=== PATIENT | female | born 1940 | race Hispanic/Latino ===

== ENCOUNTER 2017-07-15 22:13 | Inpatient (IN) | payer SELFPAY ==
[2017-07-16 00:28] LABS: #Lymphocytes 2.9 thou/uL (1.20-3.40); #Monocytes 0.6 thou/uL (0.11-0.59); %Basophils 0.1 % (0.0-1.0); %Eosinophils 0.4 % (0.0-10.0); %Lymphocytes 34.2 % (21.0-51.0); %Monocytes 6.8 % (0.0-10.0); %Neutrophils 58.6 % (42.0-75.0); Mean Corpuscular HGB CONC 35.3 g/dL (32.0-36.0); Mean Corpuscular Hemoglobin 32.2 pg (27.0-31.0); Mean Corpuscular Volume 91.2 fl (81.0-99.0); Mean Platelet Volume 6.3 fL (7.4-10.4); Platelet Count 357 thou/uL (130-400); RBC Distribution Width 11.5 % (11.5-14.5); Red Blood Cell (RBC) Count 3.73 mill/uL (4.20-5.40); White Blood Cell (WBC) Count 8.5 thou/uL (4.8-10.8)
[2017-07-16 00:43] LABS: ALT (SGPT) 16 U/L (8-55); AST (SGOT) 27 U/L (5-34); Albumin 3.5 g/dL (3.4-4.8); Alkaline Phosphatase 109 U/L (40-150); Anion Gap 17 mmol/L (10-20); BUN (Urea Nitrogen) 41 mg/dL (9.8-20.1); Bilirubin, Total 0.3 mg/dL (0.2-1.2); Calc. Creatinine Clearance 0 mL/min (70-130); Calcium 8.6 mg/dL (7.8-10.44); Carbon Dioxide 20 mmol/L (23-31); Chloride 88 mmol/L (98-107); Estimated GFR-MDRD 33; Globulin 4.2 g/dL (2.4-3.5); Glucose 132 mg/dL (83-110); Potassium 4.3 mmol/L (3.5-5.1); Protein, Total 7.7 g/dL (6.0-8.3); Sodium 121 mmol/L (136-145)
[2017-07-16] MEDS ORDERED: Dextrose 5% in Water 1,000 ML IV PRN (02:11)
[2017-07-16] MEDS ORDERED: Dextrose 50% Abboject 50 ML SYRINGE SLOW IVP PRN (02:11)
[2017-07-16] MEDS ORDERED: Bisacodyl 5 MG TAB PO PRN (02:11)
[2017-07-16] MEDS ORDERED: Acetaminophen 325 MG TAB PO PRN (02:11)
--- NOTE | 2017-07-16 02:58 | HP ---
PRIMARY CARE PROVIDER: Dave Mercado. CHIEF COMPLAINT: Cough. HISTORY OF PRESENT ILLNESS: Ms. Mendoza is a pleasant 77-year-old lady who was seen at [facility] on 07/16/2017. She speaks very little Mosotho. Her family member was translated for this encounter. For the last month, Ms. Mendoza has had cough. She reports coughing multiple times a day, with vomit ing following the cough. She also had near syncope yesterday after coughing. She denies any fevers. She denies any chest pain. She reports epigastric discomfort, but is unable to characterize it fur ther. She also reports generalized weakness. She has not been eating or drinking well. REVIEW OF SYSTEMS: The following complete review of systems was negative, unless otherwise mentioned in the HPI or below: Constitutional: Weight loss or gain, ability to conduct usual activities. Skin: Rash, itching. Eyes: Double vision, pain. ENT/Mouth: Nose bleeding, neck stiffness, pain, tenderness. Cardiovascular: Palpitations, dyspnea on exertion, orthopnea. Respiratory: Shortness of breath, wheezing, cough, hemoptysis, fever or night sweats. Gastrointestinal: Poor appetite, abdominal pain, heartburn, nausea, vomiting, constipation, or diarr hea. Genitourinary: Urgency, frequency, dysuria, nocturia. Musculoskeletal: Pain, swelling. Neurologic/Psychiatric: Anxiety, depression. Allergy/Immunologic: Skin rash, bleeding tendency. PAST MEDICAL HISTORY: Significant for diabetes mellitus type 2, hypothyroidism, dyslipidemia, and hy pertension. PAST SURGICAL HISTORY: Significant for right great toe amputation and cholecystectomy. PSYCHIATRIC HISTORY: Significant for anxiety. SOCIAL HISTORY: Patient denies tobacco use, alcohol use, or recreational drug use. CODE STATUS: I could not discuss her code status because of language barrier. This will need to be addressed in the morning. ALLERGIES: No known drug allergies. CURRENT MEDICATIONS: Glipizide 5 mg daily, pravastatin 20 mg daily, aspirin 81 mg daily, Tessalon Pe rles p.r.n., Benicar/hydrochlorothiazide 40/12.5 mg daily, Combigan eyedrops, Azopt eyedrops, and Lev tamiko 35 units daily. PHYSICAL EXAMINATION: GENERAL: Ms. Mendoza is awake and alert, not in acute distress. VITAL SIGNS: Blood pressure is 156/81, pulse is 86. She is breathing at rate of 20 and saturating 9 7% on room air. She is afebrile. EYES: No scleral icterus. No conjunctival pallor. She is blind in her right eye. ENT: Dry mucosal membranes, no oropharyngeal erythema or exudates. NECK: Supple, nontender, normal range of movement. Trachea is midline. RESPIRATORY: Accessory muscles of breathing are not active. Chest wall movements are symmetric bila terally. LUNGS: Clear to auscultation without wheeze, rhonchi, or crepitations. CARDIOVASCULAR: S1 and S2 are heard, regular. LUNGS: Peripheral pulses palpable. No carotid bruit, no pericardial rub. ABDOMEN: Soft, nontender, bowel sounds heard, no hepatomegaly, no splenomegaly. NEUROLOGIC: Cranial nerves II-XII intact. Deep tendon reflexes 2+. MUSCULOSKELETAL: Power is 5/5 in all 4 extremities. SKIN: No rashes or subcutaneous nodules. LYMPHATIC: No cervical lymphadenopathy. PSYCHIATRIC: Normal mood, normal affect, patient is oriented to person and place, not to time. DATABASE: Ms. Mendoza's labs and investigations were reviewed. She had an influenza screen that was positive for influenza A antigen. She has a normal white count, normal hemoglobin, normal platelet count, decreased sodium of 121, normal potassium, elevated creatinine of 1.52, with no known baseline value and an unremarkable liver profile. She had a chest x-ray, which does not show any pulmonary i nfiltrates. ASSESSMENT AND PLAN: Ms. Mendoza is a pleasant 77-year-old lady who was seen at [facility] on 07/16/2017. Her problem list includes: 1. Hyponatremia: Likely multifactorial, including use of thiazide diuretics as well as respiratory infection. The patient's relative also reports that patient drinks a lot of water. We will admit he r to the hospital for further management, including a workup. We will restrict her oral daily fluid intake to less than 2 liters, we will start her on intravenous normal saline and recheck her electrol ytes. 2. Influenza A: She continues to be symptomatic with cough. We will start her on Tamiflu. 3. Renal insufficiency: Duration unclear, likely prerenal given her elevated blood urea nitrogen. We will provide intravenous hydration and recheck creatinine. 4. Diabetes mellitus. Continue home medications, start Accu-Cheks and insulin sliding scale. 5. Hypertension: Monitor vital signs, titrate antihypertensives as needed. Stop thiazide diuretic. LEVEL OF RISK: Moderate. LEVEL OF COMPLEXITY: Moderate.
[2017-07-16 03:42] LABS: Creatinine, Urine 32.22 mg/dL (47-110); Potassium, Urine 12.1 mmol/L
[2017-07-16 04:11] LABS: Anion Gap 14 mmol/L (10-20); BUN (Urea Nitrogen) 38 mg/dL (9.8-20.1); Calc. Creatinine Clearance 0 mL/min (70-130); Calcium 8.2 mg/dL (7.8-10.44); Carbon Dioxide 18 mmol/L (23-31); Cardiac Risk 2.7 (Less than 4.5); Chloride 94 mmol/L (98-107); Cholesterol 96 mg/dl (< 200 Desired); Estimated GFR-MDRD 43; Glucose 107 mg/dL (83-110); HDL Cholesterol 36 mg/dL (>60 Neg Risk); LDL Cholesterol, Calculated 41 mg/dL; Potassium 4.1 mmol/L (3.5-5.1); Sodium 122 mmol/L (136-145); Triglycerides 97 mg/dL (Less than 150)
[2017-07-16 04:34] LABS: Band 7 % (5-11); Hemoglobin 10.7 g/dL (12.0-16.0); Lymphocytes 41 % (21-51); MDiff Complete? YES; Mean Corpuscular Hemoglobin 32.7 pg (27.0-31.0); Mean Corpuscular Volume 90.9 fl (81.0-99.0); Mean Platelet Volume 6.5 fL (7.4-10.4); Monocytes 10 % (0-10); Myelocyte 1 % (0-0); Neutrophil 41 % (42-75); Platelet Count 313 thou/uL (130-400); RBC Distribution Width 11.5 % (11.5-14.5); Red Blood Cell (RBC) Count 3.25 mill/uL (4.20-5.40); White Blood Cell (WBC) Count 6.8 thou/uL (4.8-10.8)
[2017-07-16] MEDS ORDERED: Diabetic Tussin 200 MG/10 ML UDCUP PO PRN (07:40)
[2017-07-16] MEDS ORDERED: Benzonatate 100 MG CAP PO PRN (07:40)
--- NOTE | 2017-07-16 07:42 | PDOC.EVN ---
Event Note - Event Note Event Note: pt seen and evaluated agree with current plan
--- NOTE | 2017-07-16 07:54 | RAD ---
RADIOGRAPH CHEST 2 VIEWS: HISTORY: A 77-year-old female with cough for 1 month. FINDINGS: There is no air space density, pulmonary edema, pleural effusion, pneumothorax, or cardiomegaly. IMPRESSION: No acute cardiopulmonary findings. jn [] POS: [facility]
[2017-07-16] MEDS ORDERED: Promethazine HCl 25 MG SUPP PR PRN (08:08)
[2017-07-16] MEDS ORDERED: hydrALAZINE 20 MG/ML VIAL SLOW IVP PRN (08:08)
[2017-07-16] MEDS ORDERED: Ondansetron HCl/PF 4 MG/2 ML Vial IVP PRN (08:08)
[2017-07-16] MEDS ORDERED: Chloraseptic Spray 180 ml Bottle PO PRN (08:08)
[2017-07-16] MEDS ORDERED: Famotidine 20 MG TAB PO PRN (08:08)
[2017-07-16] MEDS ORDERED: Calcium Carbonate 500 MG ChewTAB PO PRN (08:08)
[2017-07-16] MEDS ORDERED: Temazepam 15 MG CAP PO PRN (08:08)
[2017-07-16] MEDS ORDERED: Metoclopramide HCl 10 MG/2 ML VIAL IVP SCH (08:15)
[2017-07-16] MEDS ORDERED: Enoxaparin Sodium 30 MG/0.3 ML SYRINGE ONE ×2 (10:17→10:18)
[2017-07-16] MEDS ORDERED: Metoclopramide HCl 10 MG/2 ML VIAL ONE (10:19)
[2017-07-16 14:42] VITALS: BMI 28.3
[2017-07-16] MEDS ORDERED: Prevnar 13-Val Conj/PF 0.5 ML SYRINGE IM ONE (15:00)
[2017-07-16] MEDS ORDERED: FLU VACC TS2017-18 (>65YR) 0.5 ML SYRINGE IM ONE (15:00)
[2017-07-16] MEDS: Metoclopramide HCl 10 MG/2 ML VIAL IVP SCH ×3 (15:10→22:02)
[2017-07-16] MEDS: Sodium Chloride 0.9% 1,000 ML IV SCH ×3 (15:10→22:03)
[2017-07-16] MEDS: Oseltamivir 75 MG CAP PO SCH ×2 (15:11→22:03)
[2017-07-16] MEDS: Enoxaparin Sodium 30 MG/0.3 ML SYRINGE SC SCH (15:11)
[2017-07-16] MEDS: HumaLOG 300 UNITS/3 ML VIAL SC PRN ×2 (17:12→22:03)
[2017-07-17] MEDS: Metoclopramide HCl 10 MG/2 ML VIAL IVP SCH ×3 (02:20→13:29)
[2017-07-17 06:04] LABS: Anion Gap 10 mmol/L (10-20); BUN (Urea Nitrogen) 22 mg/dL (9.8-20.1); Calc. Creatinine Clearance 55 mL/min (70-130); Calcium 8.1 mg/dL (7.8-10.44); Carbon Dioxide 21 mmol/L (23-31); Chloride 104 mmol/L (98-107); Estimated GFR-MDRD 53; Glucose 96 mg/dL (83-110); Potassium 3.9 mmol/L (3.5-5.1); Sodium 131 mmol/L (136-145)
--- NOTE | 2017-07-17 06:35 | CON ---
DATE OF CONSULTATION: 07/16/2017 CONSULTING PHYSICIAN: Adamaris Medel M.D. REQUESING PHYSICIAN: Alfredo Yadav M.D. REASON FOR CONSULTATION: Hyponatremia. IMRESSION: 1. Hyponatremia. This is likely multifactorial including but not limited to the following potential etiologies: Hydrochlorothiazide induced hyponatremia compounded by poor p.o. osmolar intake. PLAN: 1. Probably need to discontinue hydrochlorothiazide in this patient's medication regimen. 2. Normal saline rehydration. 4. Further management will be dependent on the clinical course. HISTORY: This is a 77-year-old female patient who presented here with generalized weakness and cough which started last month. On further evaluation, the patient was noted to have hyponatremia . As a result, for management of this case. PAST MEDICAL HISTORY: Significant for type 2 diabetes, hypothyroidism, dyslipidemia, hypertension. MEDICATIONS: Reviewed and as documented on [employer]. SOCIAL HISTORY: No alcohol, tobacco, or recreational drug use. ALLERGY: No known drug allergy. FAMILY HISTORY: Not significantly related to the presenting illness. PHYSICAL EXAMINATION: GENERAL: The patient was found not to be in any distress. HEENT: Unremarkable. Moist oral mucosa. NECK: Supple. No conjunctival injection or icterus. CARDIOVASCULAR SYSTEM: First and second heart sounds were heard. RESPIRATORY SYSTEM: Clear to auscultation. DIGESTIVE SYSTEM: Revealed a benign abdomen. EXTREMITIES: No peripheral edema. SKIN: No new gross rash. LYMPHATICS: No peripheral lymphadenopathy. SUMMARY: This is a 77-year-old female patient who presented here with weakness, cough, noted to have severe hyponatremia. Thank you for this consultation.
[2017-07-17 06:48] LABS: Band 1 % (5-11); Lymphocytes 54 % (21-51); MDiff Complete? YES; Mean Corpuscular HGB CONC 34.4 g/dL (32.0-36.0); Mean Corpuscular Hemoglobin 31.9 pg (27.0-31.0); Mean Corpuscular Volume 92.5 fl (81.0-99.0); Mean Platelet Volume 6.6 fL (7.4-10.4); Monocytes 5 % (0-10); Neutrophil 40 % (42-75); Platelet Count 281 thou/uL (130-400); RBC Distribution Width 11.6 % (11.5-14.5); Red Blood Cell (RBC) Count 2.83 mill/uL (4.20-5.40)
[2017-07-17] MEDS: Enoxaparin Sodium 30 MG/0.3 ML SYRINGE SC SCH (08:53)
[2017-07-17] MEDS: Sodium Chloride 0.9% 1,000 ML IV SCH ×2 (08:53→21:43)
--- NOTE | 2017-07-17 11:33 | PDOC.PN ---
- Subjective Encounter Start Date: 07/17/17 Encounter Start Time: 11:31 Patient seen and examined, states she feels weak, states that she had another bout of cough and before starting breakfast vomitted once, no blood. Patient states she feels very anxious and is dizzy as well. Patient's family at bedside , all questions answered. - Objective Vital Signs & Weight: Vital Signs (12 hours) Temp Pulse Resp BP Pulse Ox 07/17/17 08:26 98.0 F 72 20 160/67 H 96 07/17/17 08:00 98.0 F 72 20 96 07/17/17 04:00 98.4 F 63 20 115/66 96 07/17/17 00:21 99.0 F 65 20 150/76 H 98 Weight Admit Weight 165 lb 6.4 oz Weight 165 lb 6.4 oz I&O: 07/16/17 07/17/17 07/18/17 06:59 06:59 06:59 Intake Total 1631 180 Balance 1631 180 Result Diagrams: 07/17/17 05:16 07/17/17 05:16 Additional Labs: Accuchecks 07/17/17 07/16/17 07/16/17 03:47 20:02 16:50 POC Glucose 101 152 H 154 H 07/16/17 11:46 POC Glucose 159 H Phys Exam - Physical Examination Constitutional: NAD HEENT: PERRLA, moist MMs Neck: no nodes, no JVD Respiratory: no wheezing, no rales Cardiovascular: RRR, no significant murmur Gastrointestinal: soft, non-tender Musculoskeletal: no edema, pulses present Neurological: non-focal, normal sensation Dx/Plan (1) Hyponatremia Code(s): E87.1 - HYPO-OSMOLALITY AND HYPONATREMIA Status: Acute (2) Renal dysfunction Status: Acute (3) HTN (hypertension) Code(s): I10 - ESSENTIAL (PRIMARY) HYPERTENSION Status: Acute (4) Cough Code(s): R05 - COUGH Status: Acute (5) Viral syndrome Status: Acute (6) DM II (diabetes mellitus, type II), controlled Code(s): E11.9 - TYPE 2 DIABETES MELLITUS WITHOUT COMPLICATIONS Status: Acute - Plan * Continue with current plan of care for now with the following additions * meclezine for dizziness, will also obtain CT scan of head * will follow up with results in AM * patient was not aware that she has PRN zofran available, family and patient requested to inform nurse when she has symptoms of nausea in order to receive her zofran * case and plan d/w patient and family at length, they understand and agree with this plan
[2017-07-17] MEDS: Oseltamivir 75 MG CAP PO SCH ×2 (13:02→21:44)
[2017-07-17] MEDS: HumaLOG 300 UNITS/3 ML VIAL SC PRN ×2 (13:02→16:46)
--- NOTE | 2017-07-17 15:09 | CT ---
CT HEAD WITHOUT CONTRAST: TECHNIQUE: Multiple axial tomograms were obtained through the head without IV enhancement. HISTORY: Headache and dizziness. COMPARISON: Compared to a prior CT scan from 2007. Mild cortical volume loss. Ventricles have normal size and position. No evidence of acute infarct, mass, or hemorrhage. Mild ischemic white matter change. There is opacification of ethmoid air cells on the right and diffuse opacification of the right maxil rachid sinus. IMPRESSION: 1. No acute intracranial process. 2. Paranasal sinus mucosal disease primarily involving the right ethmoid and maxillary sinuses. POS: [facility]
--- NOTE | 2017-07-17 20:51 | PRG ---
DATE OF SERVICE: 07/17/2017 SUBJECTIVE: The patient was seen and examined, seems to be doing much better. Noted with the follow ing vital signs. PHYSICAL EXAMINATION: VITAL SIGNS: Afebrile with temperature 98.1, pulse 72, respiratory rate 20, O2 sat 97%, blood pressu re 167/79. HEENT: Unremarkable with moist oral mucosa. No conjunctival injection or icterus. NECK: Supple. CARDIOVASCULAR: First and second heart sounds were heard. RESPIRATORY: Clear to auscultation. DIGESTIVE: Reveals a benign abdomen with positive bowel sounds. EXTREMITIES: No peripheral edema. SKIN: No new gross rash. LYMPHATICS: No peripheral lymphadenopathy. IMPRESSION: Hyponatremia in the context of hydrochlorothiazide usage. PLAN: 1. Permanently discontinue hydrochlorothiazide. 2. Continue renal supportive measures. 3. Further management will be dependent on the clinical course. IV fluid can be discontinued now.
[2017-07-18] MEDS: HumaLOG 300 UNITS/3 ML VIAL SC PRN ×2 (05:50→12:35)
[2017-07-18] MEDS: Enoxaparin Sodium 30 MG/0.3 ML SYRINGE SC SCH (09:26)
[2017-07-18] MEDS: Oseltamivir 75 MG CAP PO SCH (11:40)
--- NOTE | 2017-07-18 12:47 | DIS ---
DATE OF ADMISSION: 07/16/2017 DATE OF DISCHARGE: 07/18/2017 ADMITTING DIAGNOSES: 1. Cough. 2. Diabetes mellitus, type 2. 3. Hypothyroidism. 4. Dyslipidemia. 5. Hypertension. 6. Hyponatremia. 7. Influenza A positivity. DISCHARGE DIAGNOSES: 1. Cough has resolved. 2. Hyponatremia secondary to secondary to hydrochlorothiazide, resolved. 3. Acute kidney injury, resolved. 4. Influenza A, stable. 5. Hypertension, stable. 6. Hypothyroidism, stable. 7. Dyslipidemia, stable. HOSPITAL COURSE: This is a 77-year-old pleasant female admitted to the hospital due to coughing, sev ere shortness of breath as well as severe symptomatic hyponatremia of 121. Patient was admitted, [facility] team followed very closely, also by Nephrology. The patient had her hydrochlorothiazi de discontinued and serum sodium levels normalized beautifully. The patient also had a CT scan of he r head done and she was complaining of headaches and dizziness, which was negative, normal with no is sues. The patient clinically at point of time of discharge was stable, stated that she has felt a li ttle bit weak and still had cough, but otherwise had significant improvement. The patient also was s tating that she was ready to go home. Patient denied any nausea, vomiting, diarrhea, constipation, c hest pain, fevers, chills, shortness of breath at the point of time of discharge. The patient's fami ly was at bedside. Patient given prescription for tessalon perles, Levaquin 7 days, Tamiflu 7 days a s well as discontinuation of her hydrochlorothiazide and a prescription for lisinopril 10 mg daily. DISPOSITION: Home. MEDICATIONS: See SEP. FOLLOWUP: With PCP in 2 weeks. DIET: Low fat, low calorie, high fiber diet. ACTIVITY: As tolerated. CONDITION: Stable. Case and plan discussed with patient and family at length. They understand and agree with this plan.
[2017-07-18 13:30] VITALS: BP 162/82; TEMP 98.3
== END 2017-07-18 15:24 | disposition home or self-care (01) | DRG 641 ==
LOC: ERS 22:13 → ERHOLD 07-16 01:10 → T4-B 07-16 14:39
PROVIDERS: ADMIT Internal Medicine; ATTEND Internal Medicine
DX: E87.1 Hypo-osmolality and hyponatremia (principal); N17.9 Acute kidney failure, unspecified; T50.2X5A Adverse effect of carbonic-anhydrase inhibitors, benzothiadiazides and other diuretics, initial encounter; J10.1 Influenza due to other identified influenza virus with other respiratory manifestations; I10 Essential (primary) hypertension; E03.9 Hypothyroidism, unspecified; E78.5 Hyperlipidemia, unspecified; E11.9 Type 2 diabetes mellitus without complications; Z89.411 Acquired absence of right great toe; Z90.49 Acquired absence of other specified parts of digestive tract; F41.9 Anxiety disorder, unspecified; R05 Cough; B34.9 Viral infection, unspecified; Z79.4 Long term (current) use of insulin
CPT/HCPCS: 36415; 36416; 70450; 71046; 80048; 80053; 80061; 82436; 82570; 83930; 83935; 84133; 84300; 84443; 85025; 96361; 96372; 96374; J1650; J2765

== ENCOUNTER 2019-08-03 17:15 | Inpatient (IN) | payer SELFPAY ==
[2019-08-03] MEDS ORDERED: Acetaminophen 500 MG TAB ONE (17:33)
[2019-08-03 17:58] LABS: Bacteria/HPF 4+ HPF (None Seen); Bilirubin Negative (Negative); Blood, Urine Trace (Negative); Clarity Turbid (Clear); Glucose, Urine (Dipstick) Normal (Negative); Leukocyte 500 Leu/uL (Negative); Nitrite Negative (Negative); Protein, Urine (Dipstick) 100 mg/dL (Neg-Trace); Urobilinogen Normal mg/dL (Less than 2); WBC/HPF Greater than 50 HPF (0-3)
[2019-08-03 18:13] LABS: #Eosinphils 0.2 thou/uL (0.0-0.7); #Lymphocytes 0.6 thou/uL (1.20-3.40); #Monocytes 0.2 thou/uL (0.11-0.59); #Neutrophils 9.9 thou/uL (1.40-6.50); %Basophils 0.1 % (0.0-1.0); %Eosinophils 2.1 % (0.0-10.0); %Lymphocytes 5.2 % (21.0-51.0); %Monocytes 1.8 % (0.0-10.0); %Neutrophils 90.8 % (42.0-75.0); Hemoglobin 10.3 g/dL (12.0-16.0); Mean Corpuscular HGB CONC 33.2 g/dL (32.0-36.0); Mean Corpuscular Hemoglobin 30.3 pg (27.0-31.0); Mean Corpuscular Volume 91.2 fL (78.0-98.0); Mean Platelet Volume 8.1 fL (7.4-10.4); Platelet Count 197 thou/uL (130-400); RBC Distribution Width 11.4 % (11.5-14.5); White Blood Cell (WBC) Count 10.9 thou/uL (4.8-10.8)
[2019-08-03 18:42] LABS: ALT (SGPT) 38 U/L (8-55); AST (SGOT) 49 U/L (5-34); Albumin 3.3 g/dL (3.4-4.8); Alkaline Phosphatase 162 U/L (40-110); Anion Gap 11 mmol/L (10-20); BUN (Urea Nitrogen) 67 mg/dL (9.8-20.1); Bilirubin, Total 0.2 mg/dL (0.2-1.2); Calc. Creatinine Clearance 0 mL/min (70-130); Calcium 8.6 mg/dL (7.8-10.44); Carbon Dioxide 23 mmol/L (23-31); Chloride 104 mmol/L (98-107); Estimated GFR-MDRD 27; Globulin 3.8 g/dL (2.4-3.5); Glucose 217 mg/dL (83-110); Lipase 26 U/L (8-78); Potassium 4.4 mmol/L (3.5-5.1); Protein, Total 7.1 g/dL (6.0-8.3); Sodium 134 mmol/L (136-145)
--- NOTE | 2019-08-03 20:12 | CT ---
CT OF THE ABDOMEN AND PELVIS WITHOUT IV CONTRAST: 08/03/19 INDICATION: History of nausea, vomiting, generalized abdominal pain. COMPARISON: None. FINDINGS: The lung bases are clear. There is a moderate sized hiatal hernia. The unopacified liver is unremarkable appearing. The gallbladder is surgically absent. Pancreas and right adrenal gland are normal appearing. There is a 1.3 cm left adrenal adenoma. The spleen and unopacified kidneys are unremarkable appearing. No hydronephrosis is evident. No enlar ged lymph nodes or free fluid is evident. There are moderate calcifications involving the abdominal and pelvic vasculature. There is a retroaortic left renal vein. There are a few scattered diverticula involving the colon. The colon is slightly decompressed. There is a normal appendix in the right lower quadrant. Small bowel is normal in caliber. There is a hypodense mass involving the region of the right adnexa measuring 5.9 x 5.5 cm. Left adnex a is unremarkable appearing. The bladder, rectum, and perirectal soft tissues are unremarkable appearing. There is diffuse osteopenia. There is scattered degenerative and osteoarthritic change. No definite a cute osseous abnormality is evident. IMPRESSION: 1. Hypodense mass involving the right adnexa incompletely characterized. Follow-up pelvic ultras ound is recommended for additional characterization. 2. Moderate sized hiatal hernia. 3. Left adrenal adenoma. 4. Cholecystectomy. 5. Chronic diverticulosis. POS: [facility]
[2019-08-03] MEDS ORDERED: cefTRIAXone\\ROCEPHIN 1 GM VIAL ONE (21:38)
[2019-08-03] MEDS ORDERED: Ondansetron ODT 4 MG TAB ONE (21:38)
[2019-08-03] MEDS ORDERED: Lidocaine 1% PF 5 ML VIAL ONE (21:38)
[2019-08-03] MEDS ORDERED: Aspirin Chewable 81 MG TAB ONE (23:15)
[2019-08-03 23:22] LABS: CKMB 1.2 ng/mL (0-6.6)
[2019-08-04] MEDS ORDERED: Ondansetron PF 4 MG/2 ML Vial IVP PRN ×2 (01:07→08:28)
[2019-08-04] MEDS ORDERED: Sodium Chloride 0.9% 1,000 ML IV SCH (01:07)
[2019-08-04] MEDS ORDERED: Ondansetron ODT 4 MG TAB SL PRN (01:07)
[2019-08-04 01:38] VITALS: BMI 29.5
[2019-08-04 02:30] LABS: Troponin I 0.039 ng/mL (< 0.028)
[2019-08-04 05:18] LABS: Troponin I 0.041 ng/mL (< 0.028)
[2019-08-04] MEDS ORDERED: Amlodipine 5 MG TAB PO SCH (06:30)
[2019-08-04] MEDS ORDERED: HYDROcodone/Acetaminophen 5/325 mg Tablet PO PRN ×2 (08:28)
[2019-08-04] MEDS ORDERED: Acetaminophen 325 MG TAB PO PRN (08:28)
[2019-08-04] MEDS ORDERED: Ondansetron ODT 4 MG TAB PO PRN (08:28)
[2019-08-04] MEDS ORDERED: Dextrose 5% in Water 1,000 ML IV PRN (08:34)
[2019-08-04] MEDS ORDERED: Dextrose 50% Abboject 50 ML SYRINGE SLOW IVP PRN (08:34)
--- NOTE | 2019-08-04 08:49 | PDOC.HHP ---
Hospitalist HPI - History of Present Illness nausea and vomiting History of Present Illness: Case of an 79y/o female with pmhx of diabetes htn and hypercolesterolemia who comes to hospital due to n/v. patient refers she was on her usual state of health until 2days ago when she started with general malaise. symptoms progressed and patient began w suprapubic pain nausea vomiting fever and chills for which she decided to come to hospital. patient refers her urine is foul smelling and has changes in color, denies any dysuria, pt refers only 1 episode of vomiting and 1 episode of diarrhea, non bloody Hospitalist ROS - Review of Systems Constitutional: reports: fever, chills, weakness, malaise Eyes: denies: pain, vision change, conjunctivae inflammation, eyelid inflammation, redness, other ENT: denies: ear pain, ear discharge, nose pain, nose discharge, nose congestion , mouth pain, mouth swelling, throat pain, throat swelling, other Respiratory: denies: cough, dry, shortness of breath, hemoptysis, SOB with excertion, pleuritic pain, sputum, wheezing, other Cardiovascular: denies: chest pain, palpitations, orthopnea, paroxysmal noc. dyspnea, edema, light headedness, other Gastrointestinal: reports: nausea, vomiting, diarrhea Genitourinary: reports: frequency, other (as above). denies: dysuria Musculoskeletal: denies: neck pain, shoulder pain, arm pain, back pain, hand pain, leg pain, foot pain, other Skin: denies: rash, lesions, arian, bruising, other Neurological: denies: weakness, numbness, incoordination, change in speech, confusion, seizures, other - Medication Medications: Active Medications Generic Name Dose Route Start Last Admin Trade Name Freq PRN Reason Stop Dose Admin Sodium Chloride 1,000 mls @ 100 mls/hr 08/04/19 01:07 08/04/19 02:13 Normal Saline 0.9% IV 08/04/19 10:50 1,000 mls .Q10H CLARISA Administration Ondansetron HCl 4 mg 08/04/19 01:07 08/04/19 04:48 Zofran Odt SL 08/04/19 10:50 4 mg Q6H PRN Administration Nausea/Vomiting Hospitalist History - Past Medical History Cardiac: reports: HTN Pulmonary: reports: high cholesterol Endocrine: reports: Diabetes - Family History Family History: reports: diabetes mellitus, hypertension - Social History Smoking Status: Never smoker Alcohol: reports: None. denies: Rare, Occassional, Heavy Drugs: reports: none. denies: cocaine, heroine, marijuana, methamphetamine, Other Living Situation: With Family Activity level: independent ambulation - Exam General Appearance: NAD Eye: PERRL, anicteric sclera. negative: scleral icterus ENT: normocephalic atraumatic, no oropharyngeal lesions, dry oral mucosa Neck: supple, symmetric, no JVD, no thyromegaly, no lymphadenopathy, no carotid bruit Heart: RRR, no murmur, no gallops, no rubs Respiratory: no wheezes, no rales, no ronchi, normal chest expansion, no tachypnea Gastrointestinal: soft, non-tender, non-distended, normal bowel sounds, no palpable masses Extremities: no cyanosis, no clubbing, no edema Skin: no lesions, no rashes Neurological: cranial nerve grossly intact, normal sensation to touch, no weakness, no focal deficits Musculoskeletal: normal tone Psychiatric: normal affect, normal behavior, A&O x 3, oriented to person, oriented to place, oriented to time Hospitalist Results - Labs Result Diagrams: 08/03/19 18:04 08/03/19 18:04 Lab results: WBC 10.9 thou/uL (4.8-10.8) H 08/03/19 18:04 Hgb 10.3 g/dL (12.0-16.0) L 08/03/19 18:04 Hct 31.0 % (36.0-47.0) L 08/03/19 18:04 MCV 91.2 fL (78.0-98.0) 08/03/19 18:04 Plt Count 197 thou/uL (130-400) 08/03/19 18:04 Neutrophils % 90.8 % (42.0-75.0) H 08/03/19 18:04 Sodium 134 mmol/L (136-145) L 08/03/19 18:04 Potassium 4.4 mmol/L (3.5-5.1) 08/03/19 18:04 Chloride 104 mmol/L (98-107) 08/03/19 18:04 Carbon Dioxide 23 mmol/L (23-31) 08/03/19 18:04 BUN 67 mg/dL (9.8-20.1) H 08/03/19 18:04 Creatinine 1.78 mg/dL (0.6-1.1) H 08/03/19 18:04 Glucose 217 mg/dL (83-110) H 08/03/19 18:04 Calcium 8.6 mg/dL (7.8-10.44) 08/03/19 18:04 Total Bilirubin 0.2 mg/dL (0.2-1.2) 08/03/19 18:04 AST 49 U/L (5-34) H 08/03/19 18:04 ALT 38 U/L (8-55) 08/03/19 18:04 Alkaline Phosphatase 162 U/L (40-110) H 08/03/19 18:04 CK-MB (CK-2) 1.2 ng/mL (0-6.6) 08/03/19 22:30 Troponin I 0.041 ng/mL (< 0.028) H 08/04/19 04:37 Serum Total Protein 7.1 g/dL (6.0-8.3) 08/03/19 18:04 Albumin 3.3 g/dL (3.4-4.8) L 08/03/19 18:04 Lipase 26 U/L (8-78) 08/03/19 18:04 Urine Ketones Negative mg/dL (Negative) 08/03/19 17:38 Urine Blood Trace (Negative) A 08/03/19 17:38 Urine Nitrite Negative (Negative) 08/03/19 17:38 Ur Leukocyte Esterase 500 Ian/uL (Negative) A 08/03/19 17:38 Urine RBC 4-6 HPF (0-3) A 08/03/19 17:38 Urine WBC Greater than 50 HPF (0-3) A 08/03/19 17:38 Ur Squamous Epith Cells 11-20 HPF (0-3) A 08/03/19 17:38 Urine Bacteria 4+ HPF (None Seen) A 08/03/19 17:38 - Radiology Interpretation CT scan - abdomen Status: image reviewed by me, report reviewed by me (There is a moderate sized hiatal hernia. The unopacified liver is unremarkable appearing. The gallbladder is surgically absent. Pancreas and right adrenal gland are normal appearing. There is a 1.3 cm left adrenal adenoma. The spleen and unopacified kidneys are unremarkable appearing. No hydronephrosis is evident. No enlarged lymph nodes or free fluid is evident. There are moderate calcifications involving the abdominal and pelvic vasculature. There is a retroaortic left renal vein. There are a few scattered diverticula involving the colon. The colon is slightly decompressed. There is a normal appendix in the right lower quadrant. Small bowel is normal in caliber. There is a hypodense mass involving the region of the right adnexa measuring 5.9 x 5.5 cm. Left adnexa is unremarkable appearing. The bladder, rectum, and perirectal soft tissues are unremarkable appearing. There is diffuse osteopenia. There is scattered degenerative and osteoarthritic change. No definite acute osseous abnormality is evident. IMPRESSION: 1. Hypodense mass involving the right adnexa incompletely characterized. Follow-up pelvic ultrasound is recommended for additional characterization. 2. Moderate sized hiatal hernia. 3. Left adrenal adenoma. 4. Cholecystectomy. 5. Chronic diverticulosis.) Hospitalist H&P A/P - Problem (1) UTI (urinary tract infection) Status: Acute (2) Nausea & vomiting Code(s): R11.2 - NAUSEA WITH VOMITING, UNSPECIFIED Status: Acute (3) Diabetes Code(s): E11.9 - TYPE 2 DIABETES MELLITUS WITHOUT COMPLICATIONS Status: Acute (4) LISSET (acute kidney injury) Code(s): N17.9 - ACUTE KIDNEY FAILURE, UNSPECIFIED Status: Acute (5) HTN (hypertension) Code(s): I10 - ESSENTIAL (PRIMARY) HYPERTENSION Status: Acute - Plan Plan: Case of an 79y/o fem with pmhx of htn dm and hypercholesterolemia who comes with n/v. at er pt found with u/a consistent w uti, febrile and pulse in the upper 90s. pt was started on rocephin and ivfs -admit as obs -rocephin 1g daily -f/u urine/blood cultures -ivsf to treat lisset, cr at 1.7 could be chronic but pt w/o knowlege of ckd and no previous values on labs -symptomatic tx for n/v -insulin scale for dm control + basal insulin -continue home meds for chronic conditions -gi/dvt prophylaxis
[2019-08-04] MEDS ORDERED: HYDROCHLOROTHIAZIDE PO SCH (09:00)
[2019-08-04] MEDS ORDERED: OLMESARTAN PO SCH (09:00)
[2019-08-04] MEDS ORDERED: [UNRECOGNIZED DRUG - OTHER] PO SCH (09:00)
[2019-08-04] MEDS ORDERED: Aspirin 325 MG TAB PO SCH (09:00)
[2019-08-04] MEDS ORDERED: Losartan 25 MG TAB PO SCH (09:45)
[2019-08-04] MEDS ORDERED: Hydrochlorothiazide 25 MG TAB PO SCH (09:45)
[2019-08-04] MEDS: Amlodipine 5 MG TAB PO SCH (09:52)
[2019-08-04] MEDS: Aspirin Chewable 81 MG TAB PO SCH (09:52)
[2019-08-04] MEDS: Famotidine 20 MG TAB PO SCH ×2 (09:52→20:40)
[2019-08-04] MEDS: Sodium Chloride 0.9% 1,000 ML IV SCH (09:53)
[2019-08-04] MEDS: Enoxaparin Sodium 30 MG/0.3 ML SYRINGE SC SCH (09:54)
[2019-08-04] MEDS: Insulin Regular 300 UNITS/3 ML VIAL SC PRN (12:03)
[2019-08-04] MEDS: Simvastatin 5 MG TAB PO SCH (20:40)
[2019-08-04] MEDS: cefTRIAXone\\ROCEPHIN 1 GM in Sodium Chloride 0.9% 100 ML IVPB SCH (20:41)
[2019-08-04] MEDS ORDERED: Pravastatin Sodium 20 MG TAB PO SCH (21:00)
[2019-08-04] MEDS ORDERED: Insulin Glargine 40 UNITS in Pre-Filled Syringe 1 EACH SC SCH (21:00)
[2019-08-04] MEDS ORDERED: Insulin Regular 300 UNITS/3 ML VIAL SC PRN (21:55)
[2019-08-05] MEDS: Sodium Chloride 0.9% 1,000 ML IV SCH ×2 (03:29→23:26)
[2019-08-05 05:15] LABS: #Eosinphils 0.5 thou/uL (0.0-0.7); #Lymphocytes 2.2 thou/uL (1.20-3.40); #Monocytes 0.8 thou/uL (0.11-0.59); #Neutrophils 2.5 thou/uL (1.40-6.50); %Basophils 0.3 % (0.0-1.0); %Lymphocytes 36.4 % (21.0-51.0); %Monocytes 13.2 % (0.0-10.0); %Neutrophils 42.1 % (42.0-75.0); Hemoglobin 10.1 g/dL (12.0-16.0); Mean Corpuscular HGB CONC 33.6 g/dL (32.0-36.0); Mean Corpuscular Hemoglobin 30.9 pg (27.0-31.0); Mean Platelet Volume 8.5 fL (7.4-10.4); Platelet Count 196 thou/uL (130-400); RBC Distribution Width 11.5 % (11.5-14.5); Red Blood Cell (RBC) Count 3.26 mill/uL (4.20-5.40); White Blood Cell (WBC) Count 5.9 thou/uL (4.8-10.8)
[2019-08-05 05:39] LABS: Anion Gap 11 mmol/L (10-20); BUN (Urea Nitrogen) 48 mg/dL (9.8-20.1); Calc. Creatinine Clearance 36 mL/min (70-130); Carbon Dioxide 21 mmol/L (23-31); Chloride 108 mmol/L (98-107); Estimated GFR-MDRD 34; Glucose 106 mg/dL (83-110); Potassium 4.1 mmol/L (3.5-5.1); Sodium 136 mmol/L (136-145)
[2019-08-05] MEDS: Aspirin Chewable 81 MG TAB PO SCH (08:20)
[2019-08-05] MEDS: Enoxaparin Sodium 30 MG/0.3 ML SYRINGE SC SCH (08:20)
[2019-08-05] MEDS: Amlodipine 5 MG TAB PO SCH (08:20)
[2019-08-05] MEDS: Losartan 25 MG TAB PO SCH (08:21)
[2019-08-05] MEDS: Hydrochlorothiazide 25 MG TAB PO SCH (08:21)
[2019-08-05] MEDS ORDERED: Amlodipine 5 MG TAB PO SCH (09:00)
[2019-08-05] MEDS ORDERED: Insulin Glargine 10 UNITS in Pre-Filled Syringe 1 EACH SC SCH (10:00)
--- NOTE | 2019-08-05 10:15 | PRG ---
DATE OF SERVICE: 08/05/2019 SUBJECTIVE: The patient is seen and examined at the bedside. She feels significantly better. She does not have much of complaints anymore except for some weakness. She is able to tolerate food. She just ate breakfast without any nausea or vomiting. OBJECTIVE: VITAL SIGNS: Blood pressure is 148/65, pulse 69, temperature is 98.4, maximal temperature is 98.6, pulse oximetry is 93% on room air. HEAD: Atraumatic and normocephalic. Eyes are PERRLA. Sclerae are nonicteric. Oral mucosa is moist. NECK: Supple. LUNGS: Clear. HEART: S1 and S2 normal. No S3. No S4. No any murmur. ABDOMEN: Soft, nontender. Bowel sounds are present. No organomegaly. EXTREMITIES: No clubbing, cyanosis, or edema. NEUROLOGICAL: She follows my commands. She moves all 4 extremities. LABORATORY DATA: Labs show white count of 5.9, hemoglobin 10.1, hematocrit 30.0, platelet count 196. Sodium of 136, potassium 4.1, chloride 108, CO2 of 21, BUN 48, creatinine 1.48. The rest of chemistry is within normal limits. Accu-Cheks ranging from 94 to 331. Microbiology; urine culture presumptive Escherichia coli, sensitivity to follow. IMPRESSION: 1. Urinary tract infection, most likely Escherichia coli. She is on Rocephin. She does not have any temperature anymore. Her white count is back down to the normal range. We are waiting for the sensitivity to come back. 2. Nausea and vomiting, resolved. 3. Diabetes mellitus, uncontrolled. We are going to change her long-acting insulin from 40 units at bedtime to 10 units now and 30 units at night since she is high at the end of the day and her glycemia is down to normal range in the morning. 4. Acute kidney injury, improved with IV fluids. We will continue gentle hydration. Her creatinine is improved. PLAN: Plan to keep her additional 24 hours. Continue IV fluids slow rate at 50 mL/h. Continue Rocephin. We should have sensitivity on her urine cultures and we will recheck her BMP in the morning and she should be able to go back home when her glycemia is improved and we have more information about her urine culture and her general status improved. Job ID: [id number]
[2019-08-05] MEDS: Insulin Regular 300 UNITS/3 ML VIAL SC PRN (18:47)
[2019-08-05] MEDS: cloNIDine 0.1 MG TAB PO PRN ×2 (19:16→23:26)
[2019-08-05] MEDS ORDERED: Insulin Glargine 30 UNITS in Pre-Filled Syringe 1 EACH SC SCH (21:00)
[2019-08-05] MEDS: Simvastatin 5 MG TAB PO SCH (21:15)
[2019-08-05] MEDS: cefTRIAXone\\ROCEPHIN 1 GM in Sodium Chloride 0.9% 100 ML IVPB SCH (21:15)
[2019-08-05] MEDS: Famotidine 20 MG TAB PO SCH (21:15)
[2019-08-06] MEDS: cloNIDine 0.1 MG TAB PO PRN (04:44)
[2019-08-06 04:58] LABS: Anion Gap 11 mmol/L (10-20); BUN (Urea Nitrogen) 39 mg/dL (9.8-20.1); Calc. Creatinine Clearance 43 mL/min (70-130); Calcium 8.2 mg/dL (7.8-10.44); Carbon Dioxide 22 mmol/L (23-31); Chloride 109 mmol/L (98-107); Estimated GFR-MDRD 42; Sodium 138 mmol/L (136-145)
[2019-08-06 05:00] LABS: Glucose 58 mg/dL (83-110)
[2019-08-06] MEDS: Losartan 25 MG TAB PO SCH (08:42)
[2019-08-06] MEDS: Hydrochlorothiazide 25 MG TAB PO SCH (08:42)
[2019-08-06] MEDS: Enoxaparin Sodium 30 MG/0.3 ML SYRINGE SC SCH (08:42)
[2019-08-06] MEDS: Amlodipine 5 MG TAB PO SCH ×2 (08:42→19:45)
[2019-08-06] MEDS: Aspirin Chewable 81 MG TAB PO SCH (08:42)
[2019-08-06] MEDS: Insulin Glargine 10 UNITS in Pre-Filled Syringe 1 EACH SC SCH (11:26)
[2019-08-06] MEDS: MEROPENEM 1 GM/50 ML 1 GM in Premix Bag 1 BAG IVPB SCH ×2 (13:41→20:32)
[2019-08-06] MEDS ORDERED: Meropenem 1 GM in Sodium Chloride 0.9% 100 ML IVPB SCH (14:00)
--- NOTE | 2019-08-06 14:19 | PRG ---
DATE OF SERVICE: 08/06/2019 SUBJECTIVE: The patient is seen and examined at the bedside. She is doing somewhat better. She is able to eat her meals. She moves her bowels. She does not have much complaints to offer today. OBJECTIVE: VITAL SIGNS: Blood pressure is 160/72, pulse is 65, temperature 97.8, respiratory rate is 16, and O2 saturation 94% on room air. HEENT: Her head is atraumatic and normocephalic. Eyes are PERRLA. Sclerae are nonicteric. Oral mucosa is moist. NECK: Supple. LUNGS: Somewhat diminished at both bases. HEART: S1 and S2 normal. No S3. No S4. ABDOMEN: Obese, soft, and nontender. EXTREMITIES: No clubbing or cyanosis. 1+ peripheral edema similar bilaterally on both lower extremities. NEUROLOGICAL: She follows my commands. She moves all 4 extremities. There is no any motor deficits. LABORATORY DATA: Labs showed sodium of 138, potassium 4.0, chloride 109, CO2 of 22, BUN 39, creatinine 1.23, glucose is down to 58 this morning, glycemia is ranging from 101 to 401, and calcium 8.2. Microbiology, urine culture is growing E coli, which is multi-resistant. It is sensitive only to amikacin, cefoxitin, meropenem, nitrofurantoin, Zosyn, and tobramycin. Two blood cultures came back negative. IMPRESSION: 1. Urine tract infection with multi-resistant Escherichia coli, resistant to Rocephin. We will stop Rocephin and change her to meropenem. 2. Nausea and vomiting, resolved. 3. Diabetes mellitus with hypoglycemia today. I will change her regimen to 10 units of long-acting insulin Lantus in the morning and 20 at night to avoid hypoglycemia in the morning. 4. Hypertension. We will make some adjustment to her medications for hypertension. 5. Acute kidney injury, improving with IV fluids. She is getting gentle hydration of normal saline at 50 mL/h. PLAN: To switch her to meropenem. Step up blood pressure control and she should be probably able to go home in the next day 48 hours. Job ID: [id number]
[2019-08-06] MEDS: Insulin Regular 300 UNITS/3 ML VIAL SC PRN (17:13)
[2019-08-06] MEDS: Sodium Chloride 0.9% 1,000 ML IV SCH (19:44)
[2019-08-06] MEDS: Simvastatin 5 MG TAB PO SCH (19:44)
[2019-08-06] MEDS: Famotidine 20 MG TAB PO SCH (19:45)
[2019-08-06] MEDS: Insulin Glargine 20 UNITS in Pre-Filled Syringe 1 EACH SC SCH (20:26)
[2019-08-07] MEDS: cloNIDine 0.1 MG TAB PO PRN ×2 (00:31→06:13)
[2019-08-07] MEDS: MEROPENEM 1 GM/50 ML 1 GM in Premix Bag 1 BAG IVPB SCH ×3 (05:54→22:18)
[2019-08-07] MEDS: Losartan 25 MG TAB PO SCH (07:52)
[2019-08-07] MEDS: Aspirin Chewable 81 MG TAB PO SCH (07:52)
[2019-08-07] MEDS: Enoxaparin Sodium 30 MG/0.3 ML SYRINGE SC SCH (07:52)
[2019-08-07] MEDS: Amlodipine 5 MG TAB PO SCH ×2 (07:52→21:23)
[2019-08-07] MEDS: Hydrochlorothiazide 25 MG TAB PO SCH (07:53)
[2019-08-07] MEDS: Insulin Glargine 10 UNITS in Pre-Filled Syringe 1 EACH SC SCH (09:19)
--- NOTE | 2019-08-07 10:03 | PDOC.HOSPP ---
- Subjective Encounter Date: 08/07/19 Encounter Time: 10:00 Subjective: monica- used translater , no pain of note, fever , chills - Objective Vital Signs & Weight: Vital Signs (12 hours) Temp Pulse Resp BP BP Pulse Ox 08/07/19 07:52 210/90 H 08/07/19 07:46 97.2 F L 64 16 163/70 H 97 08/07/19 06:13 210/90 H 08/07/19 05:54 210/90 H 08/07/19 04:00 97.7 F 80 18 160/70 H 95 08/07/19 00:31 165/80 H 08/06/19 23:15 98.6 F 56 L 19 184/76 H 94 L Weight Admit Weight 156 lb 4 oz Weight 167 lb 1.061 oz I&O: 08/06/19 08/07/19 08/08/19 06:59 06:59 06:59 Intake Total 0 1363 1334 Output Total 350 1000 300 Balance -232 307 0509 Result Diagrams: 08/05/19 04:48 08/06/19 04:30 Additional Labs: Accuchecks 08/07/19 08/07/19 08/07/19 06:55 06:01 00:19 POC Glucose 144 H 67 L 144 H 08/06/19 08/06/19 08/06/19 20:17 17:09 11:20 POC Glucose 238 H 290 H 401 H Hospitalist ROS - Medication Medications: Active Medications Generic Name Dose Route Start Last Admin Trade Name Freq PRN Reason Stop Dose Admin Amlodipine Besylate 5 mg 08/06/19 21:00 08/07/19 07:52 Norvasc PO 5 mg BID CLARISA Administration Aspirin 81 mg 08/04/19 09:00 08/07/19 07:52 Aspirin Chewable PO 81 mg DAILY CLARISA Administration Clonidine 0.1 mg 08/05/19 18:45 08/07/19 06:13 Catapres PO 0.1 mg Q4H PRN Administration .SBP > 160 Enoxaparin Sodium 30 mg 08/04/19 09:00 08/07/19 07:52 Lovenox SC 30 mg 0900 CLARISA Administration Famotidine 20 mg 08/05/19 21:00 08/06/19 19:45 Pepcid PO 20 mg QPM CLARISA Administration Hydrochlorothiazide 12.5 mg 08/05/19 09:00 08/07/19 07:53 Hydrochlorothiazide PO Not Given DAILY CLARISA Insulin Glargine 10 units/ 0.1 mls @ 0 mls/hr 08/06/19 09:00 08/07/19 09:19 Miscellaneous Medication SC 0.1 mls QAM CLARISA Administration Meropenem 1 gm/ Device 50 mls @ 100 mls/hr 08/06/19 14:00 08/07/19 05:54 IVPB 50 mls Q8HR CLARISA Administration Insulin Glargine 20 units/ 0.2 mls @ 0 mls/hr 08/06/19 21:00 08/06/19 20:26 Miscellaneous Medication SC 0.2 mls HS CLARISA Administration Insulin Human Regular 0 units 08/04/19 08:34 08/06/19 17:13 Humulin R SC 6 unit .MODERATE SLIDING SC PRN Administration Moderate Correctional Scale Insulin Human Regular 0 units 08/04/19 21:55 08/04/19 23:17 Humulin R SC 4 unit .BEDTIME SLIDING SC PRN Administration BEDTIME SLIDING SCALE Protocol Losartan Potassium 100 mg 08/05/19 09:00 08/07/19 07:52 Cozaar PO 100 mg DAILY CLARISA Administration Simvastatin 10 mg 08/04/19 21:00 08/06/19 19:44 Zocor PO 10 mg HS CLARISA Administration Sodium Chloride 10 ml 08/04/19 09:00 08/07/19 07:51 Flush - Normal Saline IVF Not Given Q12HR CLARISA - Exam General Appearance: awake alert Neck: no JVD Heart: RRR Respiratory: CTAB Gastrointestinal: soft, normal bowel sounds Extremities: no edema Hosp A/P (1) Sepsis Code(s): A41.9 - SEPSIS, UNSPECIFIED ORGANISM Status: Acute Qualifiers: Sepsis type: Escherichia coli Sepsis acute organ dysfunction status: without acute organ dysfunction Qualified Code(s): A41.51 - Sepsis due to Escherichia coli [E. coli] (2) UTI (urinary tract infection), bacterial Code(s): N39.0 - URINARY TRACT INFECTION, SITE NOT SPECIFIED; A49.9 - BACTERIAL INFECTION, UNSPECIFIED Status: Acute (3) Hypertension, uncontrolled Code(s): I10 - ESSENTIAL (PRIMARY) HYPERTENSION Status: Acute (4) DM II (diabetes mellitus, type II), controlled Code(s): E11.9 - TYPE 2 DIABETES MELLITUS WITHOUT COMPLICATIONS Status: Chronic Qualifiers: Diabetes mellitus custodial insulin use: with custodial use Diabetes mellitus complication status: with kidney complications Diabetes mellitus complication detail: with chronic kidney disease Chronic kidney disease stage : stage 3 (moderate) Qualified Code(s): E11.22 - Type 2 diabetes mellitus with diabetic chronic kidney disease; N18.3 - Chronic kidney disease, stage 3 ( moderate); 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
[2019-08-07] MEDS ORDERED: Insulin Glargine 35 UNITS in Pre-Filled Syringe 1 EACH SC SCH (10:15)
[2019-08-07] MEDS ORDERED: Insulin Glargine 25 UNITS in Pre-Filled Syringe 1 EACH SC SCH (12:30)
[2019-08-07] MEDS: Insulin Regular 300 UNITS/3 ML VIAL SC PRN (13:16)
[2019-08-07] MEDS: Famotidine 20 MG TAB PO SCH (21:23)
[2019-08-07] MEDS: Simvastatin 5 MG TAB PO SCH (21:23)
[2019-08-07] MEDS: Insulin Glargine 20 UNITS in Pre-Filled Syringe 1 EACH SC SCH (21:26)
[2019-08-08] MEDS: MEROPENEM 1 GM/50 ML 1 GM in Premix Bag 1 BAG IVPB SCH ×3 (06:11→22:26)
--- NOTE | 2019-08-08 08:55 | PDOC.HOSPP ---
- Subjective Encounter Date: 08/08/19 Encounter Time: 08:49 Subjective: no fever, etc - Objective Vital Signs & Weight: Vital Signs (12 hours) Temp Pulse Resp BP BP Pulse Ox 08/08/19 07:37 98.1 F 67 18 170/75 H 93 L 08/08/19 04:00 98.5 F 72 16 181/81 H 92 L 08/08/19 00:00 98.4 F 66 18 178/63 H 92 L 08/07/19 21:23 73 180/78 H Weight Admit Weight 156 lb 4 oz Weight 167 lb 1.061 oz I&O: 08/07/19 08/08/19 08/09/19 06:59 06:59 06:59 Intake Total 1363 2894 Output Total 1000 3400 Balance 363 -506 Result Diagrams: 08/05/19 04:48 08/06/19 04:30 Additional Labs: Accuchecks 08/08/19 08/07/19 08/07/19 05:44 20:16 17:10 POC Glucose 91 277 H 130 H 08/07/19 11:41 POC Glucose 310 H Hospitalist ROS - Medication Medications: Active Medications Generic Name Dose Route Start Last Admin Trade Name Freq PRN Reason Stop Dose Admin Amlodipine Besylate 5 mg 08/06/19 21:00 08/07/19 21:23 Norvasc PO 5 mg BID CLARISA Administration Aspirin 81 mg 08/04/19 09:00 08/07/19 07:52 Aspirin Chewable PO 81 mg DAILY CLARISA Administration Clonidine 0.1 mg 08/05/19 18:45 08/07/19 06:13 Catapres PO 0.1 mg Q4H PRN Administration .SBP > 160 Enoxaparin Sodium 30 mg 08/04/19 09:00 08/07/19 07:52 Lovenox SC 30 mg 0900 CLARISA Administration Famotidine 20 mg 08/05/19 21:00 08/07/19 21:23 Pepcid PO 20 mg QPM CLARISA Administration Hydrochlorothiazide 12.5 mg 08/05/19 09:00 08/07/19 07:53 Hydrochlorothiazide PO Not Given DAILY CLARISA Meropenem 1 gm/ Device 50 mls @ 100 mls/hr 08/06/19 14:00 08/08/19 06:11 IVPB 50 mls Q8HR CLARISA Administration Insulin Glargine 20 units/ 0.2 mls @ 0 mls/hr 08/06/19 21:00 08/07/19 21:26 Miscellaneous Medication SC 0.2 mls HS CLARISA Administration Insulin Human Regular 0 units 08/04/19 08:34 08/07/19 13:16 Humulin R SC 8 unit .MODERATE SLIDING SC PRN Administration Moderate Correctional Scale Insulin Human Regular 0 units 08/04/19 21:55 08/04/19 23:17 Humulin R SC 4 unit .BEDTIME SLIDING SC PRN Administration BEDTIME SLIDING SCALE Protocol Losartan Potassium 100 mg 08/05/19 09:00 08/07/19 07:52 Cozaar PO 100 mg DAILY CLARISA Administration Simvastatin 10 mg 08/04/19 21:00 08/07/19 21:23 Zocor PO 10 mg HS CLARISA Administration Sodium Chloride 10 ml 08/04/19 09:00 08/07/19 22:17 Flush - Normal Saline IVF 10 ml Q12HR CLARISA Administration - Exam General Appearance: awake alert Neck: no JVD Heart: RRR, no murmur Respiratory: CTAB Gastrointestinal: soft, normal bowel sounds Extremities: no edema Hosp A/P (1) Sepsis Code(s): A41.9 - SEPSIS, UNSPECIFIED ORGANISM Status: Acute Qualifiers: Sepsis type: Escherichia coli Sepsis acute organ dysfunction status: without acute organ dysfunction Qualified Code(s): A41.51 - Sepsis due to Escherichia coli [E. 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
[2019-08-08] MEDS ORDERED: Non-Formulary Item 1 EACH (Levemir Flexpen [Levemir Flexpen] 35 UNIT) SC SCH (09:00)
[2019-08-08] MEDS ORDERED: glipiZIDE 5 MG TAB PO SCH (09:00)
[2019-08-08] MEDS: Hydrochlorothiazide 25 MG TAB PO SCH (09:44)
[2019-08-08] MEDS: Enoxaparin Sodium 30 MG/0.3 ML SYRINGE SC SCH (09:45)
[2019-08-08] MEDS: Aspirin Chewable 81 MG TAB PO SCH (09:45)
[2019-08-08] MEDS: Losartan 25 MG TAB PO SCH (09:45)
[2019-08-08] MEDS: Amlodipine 5 MG TAB PO SCH ×2 (09:45→22:10)
[2019-08-08] MEDS: Insulin Glargine 35 UNITS in Pre-Filled Syringe 1 EACH SC SCH ×2 (09:46→10:05)
[2019-08-08] MEDS: cloNIDine 0.1 MG TAB PO PRN (15:13)
[2019-08-08] MEDS: Famotidine 20 MG TAB PO SCH (22:10)
[2019-08-08] MEDS: Simvastatin 5 MG TAB PO SCH (22:10)
[2019-08-08] MEDS: Insulin Glargine 20 UNITS in Pre-Filled Syringe 1 EACH SC SCH (22:15)
[2019-08-09] MEDS: cloNIDine 0.1 MG TAB PO PRN (03:51)
[2019-08-09] MEDS: MEROPENEM 1 GM/50 ML 1 GM in Premix Bag 1 BAG IVPB SCH (05:54)
[2019-08-09 08:12] VITALS: BP 159/88; TEMP 98.3
--- NOTE | 2019-08-09 08:58 | DIS ---
DATE OF ADMISSION: 08/04/2019 DATE OF DISCHARGE: 08/09/2019 PRIMARY CARE PROVIDER: Dave Mercado. DISCHARGE DISPOSITION: Discharged home. FINAL DIAGNOSES: Urinary tract infection, sepsis syndrome, hypertension, diabetes mellitus type 2. DISCHARGE MEDICATIONS: 1. Macrobid 100 b.i.d. for 7 days. 2. Norvasc 5 mg a day. 3. Glipizide 5 mg a day. 4. Pravastatin 20 mg a day. 5. Olmesartan/hydrochlorothiazide 40/12.5 one a day. 6. Aspirin 81 mg a day. 7. Levemir 35 units subcu daily. ALLERGIES: PENICILLINS. CODE STATUS: Full. DIET: Diabetic. PENDING AT TIME OF DISCHARGE: Nothing. HOSPITAL COURSE: The patient was admitted to the hospital with nausea and vomiting for 2 days, malaise, suprapubic pain. She was admitted to the Hospitalist Service. Initial diagnosis was acute UTI with nausea and vomiting, acute kidney injury on chronic kidney disease. Pertinent laboratory; white count 10.9, followup 2 days later was 5.9; hemoglobin 10.3, followup 10.1; platelet count 197,000 and 196,000. Initial comprehensive metabolic profile; sodium 134, potassium 4.4, creatinine 1.78, BUN 67, and blood sugar was 217. The patient was initially started on meropenem. She has done well. Blood cultures are negative. Urine culture grew E coli, which the only appropriate sensitive medicine is Macrodantin. She has been afebrile, doing well during her hospital stay. Her last creatinine is 1.23. She is being discharged on her usual home medicines. She has been asked to follow up with primary care provider in 3 days. No consultations. No procedures. Job ID: [id number]
[2019-08-09] MEDS: Aspirin Chewable 81 MG TAB PO SCH (10:24)
[2019-08-09] MEDS: Amlodipine 5 MG TAB PO SCH (10:24)
[2019-08-09] MEDS: Enoxaparin Sodium 30 MG/0.3 ML SYRINGE SC SCH (10:25)
[2019-08-09] MEDS: Losartan 25 MG TAB PO SCH (10:25)
[2019-08-09] MEDS: Hydrochlorothiazide 25 MG TAB PO SCH (10:25)
[2019-08-09] MEDS: Insulin Glargine 35 UNITS in Pre-Filled Syringe 1 EACH SC SCH (10:25)
--- NOTE | 2019-08-10 03:02 | PQF ---
Sharri Mendoza, [place] Panchito MARIA [id number] CLINICAL DOCUMENTATION CLARIFICATION FORM: POST DISCHARGE Addendum to original discharge summary date: ____ Late entry note date: __ DATE:08/10/2019 ATTN: Dr Taylor , [place] Please exercise your independent, professional judgment in responding to the clarification form. Clinical indicators are provided on the bottom of this form for your review Please check appropriate box(s) to clarify if the following diagnosis has been ruled in or ruled out: Sepsis E. Coli [ x] Ruled in diagnosis [ ] Continue to treat [x ] Resolved [ ] Ruled out diagnosis [ ] Cannot rule out diagnosis [ ] Other diagnosis [ ] Unable to determine In addition, please specify: Present on Admission (POA): [ x ] Yes [ ] No [ ] Unable to determine For continuity of documentation, please document condition throughout progress notes and discharge summary. Thank You. CLINICAL INDICATORS - SIGNS / SYMPTOMS / LABS Laboratory Hematology 08/03 WBC 10.9 Hospitalist H&P p1 08/04 Dr Chaudhari patient refers she was on her usual state of health until 2days ago when she started with general malaise Hospitalist H&P p1 08/04 Dr Chaudhari Pt refers her urine if foul smelling and has changes in color Hospitalist H&P p1 08/04 Dr Chaudhari reports fever, chills, weakness and malaise Hospitalist H&P p5 08/04 Dr Chaudhari Pt found consistent with UTI, febrile and pulse in the upper 90s RISK FACTORS Hospitalist H&P p1 08/04 79 year-old female Hospitalist H&P p4 08/04 UTI Hospitalist H&P p4 08/04 LISSET PN p1 08/05 UTI most likely E Coli Hospitalist PN p5 08/07 Sepsis due to E Coli TREATMENTS MAR 08/04 IV Rocephin MAR 08/04 IV Normal Saline MAR 1/24 IV Meropenem Hospitalist H&P p4 - Obtained Urine and Blood culture (This form is maintained as a part of the permanent medical record) 2014 [employer]. All Rights Reserved [email or web address]
== END 2019-08-09 13:04 | disposition home or self-care (01) | DRG 872 ==
LOC: ERS 17:15 → OBSVTOIN 08-04 01:12 → 2SW 08-04 01:12
PROVIDERS: ADMIT Family Medicine; ATTEND Family Medicine
DX: A41.51 Sepsis due to Escherichia coli [E. coli] (principal); N39.0 Urinary tract infection, site not specified; N17.9 Acute kidney failure, unspecified; Z16.29 Resistance to other single specified antibiotic; E11.65 Type 2 diabetes mellitus with hyperglycemia; N18.3 Chronic kidney disease, stage 3 (moderate); E11.22 Type 2 diabetes mellitus with diabetic chronic kidney disease; I12.9 Hypertensive chronic kidney disease with stage 1 through stage 4 chronic kidney disease, or unspecified chronic kidney disease; Z88.0 Allergy status to penicillin; Z79.4 Long term (current) use of insulin; Z79.899 Other long term (current) drug therapy; Z79.82 Long term (current) use of aspirin
CPT/HCPCS: 36415; 36416; 74176; 80048; 80053; 81003; 81015; 82553; 83690; 84484; 85025; 87040; 87077; 87086; 87186; 87804; 93005; 96360; 96361; 96372; J0696; J1650; J1815; J2001; J2185; J3490; Q0162

== ENCOUNTER 2019-09-29 18:36 | Inpatient (IN) | payer MEDICAID, SELFPAY ==
[~2019-09-29 18:36] MED LIST: Heparin 1,000 UNITS/ML VIAL ONE; Iopamidol-370 76% 500 ML 1 ML ONE
[2019-09-29 19:12] LABS: Hemoglobin 10.4 g/dL (12.0-16.0); Mean Corpuscular HGB CONC 34.3 g/dL (32.0-36.0); Mean Corpuscular Hemoglobin 29.5 pg (27.0-31.0); Mean Platelet Volume 6.9 fL (7.4-10.4); Platelet Count 361 thou/uL (130-400); Red Blood Cell (RBC) Count 3.52 mill/uL (4.20-5.40); White Blood Cell (WBC) Count 20.5 thou/uL (4.8-10.8)
[2019-09-29] MEDS ORDERED: Sodium Chloride 0.9% 100 ML ONE (19:23)
[2019-09-29] MEDS ORDERED: Cefepime 2 GM VIAL ONE (19:23)
[2019-09-29 19:32] LABS: ALT (SGPT) 10 U/L (8-55); AST (SGOT) 18 U/L (5-34); Albumin 3.2 g/dL (3.4-4.8); Alkaline Phosphatase 178 U/L (40-110); Anion Gap 15 mmol/L (10-20); BUN (Urea Nitrogen) 25 mg/dL (9.8-20.1); Bilirubin, Total 0.6 mg/dL (0.2-1.2); CK (CPK) 56 U/L (29-168); Calc. Creatinine Clearance 0 mL/min (70-130); Calcium 8.6 mg/dL (7.8-10.44); Carbon Dioxide 23 mmol/L (23-31); Chloride 88 mmol/L (98-107); Estimated GFR-MDRD 32; Globulin 4.3 g/dL (2.4-3.5); Glucose 226 mg/dL (83-110); Lipase 19 U/L (8-78); Potassium 3.7 mmol/L (3.5-5.1); Protein, Total 7.5 g/dL (6.0-8.3); Sodium 122 mmol/L (136-145)
[2019-09-29 19:33] LABS: Band 8 % (5-11); Lymphocytes 4 % (21-51); MDiff Complete? YES; Metamyelocyte 1 % (0-0); Monocytes 1 % (0-10); Neutrophil 84 % (42-75); Reactive Lymphocytes 2 % (0-10)
--- NOTE | 2019-09-29 19:36 | RAD ---
EXAM: Single view of the chest HISTORY: Cough COMPARISON: 01/16/2007 FINDINGS: Single view of the chest shows a normal sized cardiomediastinal silhouette. There is no mari dence of consolidation, mass, or pleural effusion. The bones are unremarkable. IMPRESSION: No evidence of acute cardiopulmonary disease
[2019-09-29 19:37] LABS: Bilirubin Negative (Negative); Blood, Urine 1+ (Negative); Clarity Turbid (Clear); Glucose, Urine (Dipstick) 200 mg/dL (Negative); Leukocyte Negative Leu/uL (Negative); Nitrite Negative (Negative); Protein, Urine (Dipstick) 300 mg/dL (Neg-Trace); RBC/HPF 0-3 HPF (0-3); Squamous Epithelial 0-3 HPF (0-3); Urobilinogen Normal mg/dL (Less than 2); Yeast-Budding 2+ HPF (None Seen)
[2019-09-29 19:44] LABS: Bacteria/HPF 3+ HPF (None Seen)
[2019-09-29] MEDS ORDERED: Vancomycin 1 GM/200 ML BAG ONE (19:56)
--- NOTE | 2019-09-29 19:58 | CT ---
CT Abdomen Pelvis W Con: 09/29/2019 7:08 PM CLINICAL INFORMATION: Bilateral lower quadrant abdominal pain COMPARISON: 08/03/2019 TECHNIQUE: Multiple contiguous axial images were obtained and a CT of the abdomen and pelvis with IV contrast. C oronal and sagittal reformats were performed. FINDINGS: Lower Chest: Large hiatal hernia. Abdomen: Liver: within normal limits. Bile Ducts: Normal caliber. Gallbladder: Removed Pancreas: within normal limits. Spleen: within normal limits. Adrenals: There is stable thickening of the left adrenal gland which may represent adrenal hyperplasi a or an adenoma. Kidneys: within normal limits. Pelvis: Reproductive Organs: There is a stable 6.5 cm cystic lesion in the right pelvis which likely represen ts a right ovarian cyst/follicle. Ureters: within normal limits. Bladder: within normal limits. Peritoneum: No ascites or free air, no fluid collection. Bowel: Normal caliber. Normal appendix. Mesentery and Retroperitoneum: No enlarged mesenteric or retroperitoneal lymph nodes. Vessels: Atherosclerotic calcifications. Abdominal Wall: within normal limits. Bones: Degenerative changes in the spine. IMPRESSION: 1. Stable right ovarian cyst/follicle. 2. Hiatal hernia 3. Stable left adrenal hyperplasia versus small adenoma.
[2019-09-29 22:02] LABS: Lactic Acid 1.6 mmol/L (0.5-2.2)
[2019-09-29] MEDS ORDERED: cloNIDine 0.1 MG TAB PO PRN (22:09)
[2019-09-29] MEDS ORDERED: HumaLOG 300 UNITS/3 ML VIAL SC PRN (22:09)
[2019-09-29] MEDS ORDERED: Dextrose 5% in Water 1,000 ML IV PRN (22:09)
[2019-09-29] MEDS ORDERED: Acetaminophen 325 MG TAB PO PRN (22:09)
[2019-09-29] MEDS ORDERED: hydrALAZINE 25 MG TAB PO SCH (22:09)
[2019-09-29] MEDS ORDERED: HYDROcodone/Acetaminophen 5/325 mg Tablet PO PRN (22:09)
[2019-09-29] MEDS ORDERED: Guaifenesin DM 100-10/5 ML UDCUP PO PRN (22:09)
[2019-09-29] MEDS ORDERED: Bisacodyl 10 MG SUPP PR PRN (22:09)
[2019-09-29 22:11] LABS: Troponin I 0.038 ng/mL (< 0.028)
[2019-09-29] MEDS ORDERED: Amlodipine 10 MG TAB PO SCH (22:15)
[2019-09-29] MEDS: Sodium Chloride 0.9% 1,000 ML IV SCH (23:02)
[2019-09-29] MEDS ORDERED: Fluconazole 100 MG TAB PO SCH (23:30)
--- NOTE | 2019-09-29 23:48 | HP ---
REASON FOR ADMISSION: Severe dehydration with intractable nausea and vomiting from last 3 days. Lower abdominal pain, hyponatremia, possible sepsis, acute kidney injury, failure to thrive with moderate malnutrition. HISTORY OF PRESENTING ILLNESS: The patient gives history of vomiting from last 3 days. It started out with nausea 3 days back, but from last day and a half now , she has been throwing up everything that is going in. She also developed cough with clear expectoration. Had some fever at home. On arrival, had temperature of 100.3 degrees here. She complains of lower abdominal pain along with upper thigh pain as well. No history of travel. No exposure to sick people. She normally ambulates with a rolling walker minimally in the house. No complaints of chest pain, palpitation, or PND. PAST MEDICAL AND SURGICAL HISTORY: History of diabetes mellitus type 2, likely underlying gastroparesis, hypothyroidism, dyslipidemia, hypertension, right great toe amputation, cholecystectomy, GERD. CURRENT MEDICATIONS: The patient is on: 1. Omeprazole 40 mg p.o. daily. 2. Norvasc 5 mg p.o. daily. 3. Pravastatin 20 mg p.o. daily. 4. Benicar HCT 40/12.5 mg p.o. daily. 5. Macrobid 100 mg twice daily. This is her refill for the 3rd time per daughter at bedside. 6. Glipizide 5 mg daily. 7. Levemir 35 units subcu daily. ALLERGIES: ALLERGIC TO PENICILLIN. PERSONAL HISTORY: Does not abuse alcohol or drugs. No history of smoking. FAMILY HISTORY: Mother at the age of 51. She has had history of CVA. Father in his 90s from natural causes. CODE STATUS: Full. Power of meteorologist in charge is daughter. REVIEW OF SYSTEMS: CONSTITUTIONAL: Negative for weight loss or gain, ability to conduct usual activities. SKIN: Negative for rash, itching. EYES: Negative for double vision, pain. ENT/MOUTH: Negative for nose bleeding, neck stiffness, pain, tenderness. CARDIOVASCULAR: Negative for palpitations, dyspnea on exertion, orthopnea. RESPIRATORY: Negative for shortness of breath, wheezing, cough, hemoptysis, fever or night sweats. GASTROINTESTINAL: Negative for poor appetite, abdominal pain, heartburn, nausea , vomiting, constipation, or diarrhea. GENITOURINARY: Negative for urgency, frequency, dysuria, nocturia. MUSCULOSKELETAL: Negative for pain, swelling. NEUROLOGIC/PSYCHIATRIC: Negative for anxiety, depression. ALLERGY/IMMUNOLOGIC: Negative for skin rash, bleeding tendency. PHYSICAL EXAMINATION: GENERAL: The patient is a 79-year-old female, who is currently not in any acute distress. VITAL SIGNS: Blood pressure 196/72, pulse 100 per minute, respiratory rate 20 per minute, temperature 100.3 degrees Fahrenheit, saturating 95% on room air. NECK: Supple. No elevated JVD. HEENT: Eyes; extraocular muscles intact. Pupils reacting to light. Oral cavity, mucous membranes are dry. No exudates or congestion. CARDIOVASCULAR: S1 and S2 heard. Regular rhythm. Tachycardic. RESPIRATORY: Air entry 1+ bilateral. Scattered rhonchi plus no rales or wheezes. ABDOMEN: Soft. Bowel sounds heard. No tenderness, rigidity, or guarding. EXTREMITIES: Mild peripheral edema. No calf tenderness. VASCULAR SYSTEM: Peripheral pulses 1+ bilateral. No ischemic ulcerations or gangrene. CENTRAL NERVOUS SYSTEM: No gross focal deficits noted. The patient is alert awake oriented well. PSYCHIATRIC: The patient's mood is euthymic. No hallucinations or delusions. LABORATORY DATA: Chest x-ray done shows no acute cardiopulmonary abnormality. CT of the abdomen and pelvis with contrast done showed no acute abnormality. There is stable right ovarian cyst/follicle hiatal hernia. Stable left adrenal hyperplasia versus small adenoma. UA shows 11-20 wbc's, 3+ bacteria, and 2+ budding yeast. Influenza A and B antigens are negative. Albumin is 3.2. BNP 382, BUN 25, creatinine 1.5, serum glucose 226, lactic acid is 1.6. AST and ALT within normal limits. T bilirubin is 0.6. White count of 20, H and H 10 and 30, platelet count 361 with 84% neutrophils and 8% bands. MCV is 86. CLINICAL IMPRESSION AND PLAN: The patient is being sent to IMCU from ER for suspected sepsis. She is clinically severely dehydrated. She has gotten 1 L of IV fluid in the ER along with cefepime and vancomycin. We will place her on normal saline at 100 mL per hour. She will be empirically placed on cefepime and vancomycin until cultures. We will continue Lantus 15 units subcu twice daily. We will also add Reglan 5 mg a.c. and at bedtime. The patient likely has underlying gastroparesis. She is also on 3rd round of Macrobid, it is unclear if this is for prophylactic dose to prevent recurrent urinary tract infection. We will continue her on Norvasc, aspirin, glipizide, and add clonidine and hydralazine to her medication regimen. We will also continue Pravachol as before. Her Benicar HCT will be held for now in view of mild acute kidney injury. Continue to closely monitor her for any hemodynamic compromise. Job ID: [id number] MTDD
[2019-09-30 01:37] LABS: Troponin I 0.067 ng/mL (< 0.028)
[2019-09-30 04:10] LABS: Anion Gap 12 mmol/L (10-20); BUN (Urea Nitrogen) 23 mg/dL (9.8-20.1); Calc. Creatinine Clearance 46 mL/min (70-130); Calcium 7.5 mg/dL (7.8-10.44); Carbon Dioxide 21 mmol/L (23-31); Chloride 95 mmol/L (98-107); Estimated GFR-MDRD 43; Potassium 3.3 mmol/L (3.5-5.1); Sodium 125 mmol/L (136-145)
[2019-09-30 04:13] LABS: Glucose 59 mg/dL (83-110)
[2019-09-30 04:21] LABS: Band 12 % (5-11); Hemoglobin 8.4 g/dL (12.0-16.0); Lymphocytes 6 % (21-51); MDiff Complete? YES; Mean Corpuscular HGB CONC 34.1 g/dL (32.0-36.0); Mean Corpuscular Hemoglobin 29.8 pg (27.0-31.0); Mean Corpuscular Volume 87.3 fL (78.0-98.0); Mean Platelet Volume 7.2 fL (7.4-10.4); Monocytes 5 % (0-10); Neutrophil 77 % (42-75); Platelet Count 304 thou/uL (130-400); Platelet Morphology Comment Appears Adequate; Red Blood Cell (RBC) Count 2.81 mill/uL (4.20-5.40); White Blood Cell (WBC) Count 21.7 thou/uL (4.8-10.8)
[2019-09-30] MEDS: Dextrose 50% Abboject 50 ML SYRINGE SLOW IVP PRN (04:25)
[2019-09-30] MEDS ORDERED: glipiZIDE 5 MG TAB PO SCH (07:30)
[2019-09-30] MEDS ORDERED: Cefepime 1 GM in Sodium Chloride 0.9% 100 ML IVPB SCH (08:00)
[2019-09-30] MEDS ORDERED: FLU VACC TS2019-20(65YR UP)/PF 180 MCG/0.5 ML SYRINGE IM ONE (09:00)
[2019-09-30] MEDS ORDERED: Insulin Glargine 15 UNITS in Pre-Filled Syringe 1 EACH SC SCH (09:00)
[2019-09-30] MEDS ORDERED: Prevnar 13-Val Conj/PF 0.5 ML SYRINGE IM ONE (09:00)
[2019-09-30] MEDS: hydrALAZINE 25 MG TAB PO SCH ×3 (09:31→21:25)
[2019-09-30] MEDS: Fluconazole 100 MG TAB PO SCH (09:31)
[2019-09-30] MEDS: cloNIDine 0.1 MG TAB PO SCH ×2 (09:31→21:25)
[2019-09-30] MEDS: Amlodipine 5 MG TAB PO SCH (09:32)
[2019-09-30] MEDS: Aspirin Chewable 81 MG TAB PO SCH (09:32)
[2019-09-30] MEDS: Metoclopramide HCl 10 MG TAB PO SCH ×4 (09:32→21:26)
[2019-09-30] MEDS: Famotidine 20 MG TAB PO SCH (09:32)
[2019-09-30] MEDS: Sodium Chloride 0.9% 1,000 ML IV SCH (09:34)
[2019-09-30] MEDS: Enoxaparin Sodium 30 MG/0.3 ML SYRINGE SC SCH (09:34)
[2019-09-30] MEDS: Senokot S 8.6-50 MG TAB PO SCH ×2 (09:36→21:26)
--- NOTE | 2019-09-30 14:52 | PDOC.HOSPP ---
- Subjective Encounter Date: 09/30/19 Encounter Time: 12:10 Subjective: pt admitted w.. dehydration and suspected Sepsis, bl cx +ve. pt speaks italian only. no family at bedside. - Objective Vital Signs & Weight: Vital Signs (12 hours) Temp BP Pulse Ox 09/30/19 11:12 97.8 F 09/30/19 09:31 173/78 H 09/30/19 08:00 98 09/30/19 07:25 98.0 F 09/30/19 04:00 97.4 F L Weight Weight 167 lb 8 oz Most Recent Monitor Data Heart Rate from ECG 77 NIBP 149/81 NIBP BP-Mean 103 Respiration from ECG 22 SpO2 100 I&O: 09/29/19 09/30/19 10/01/19 06:59 06:59 06:59 Intake Total 1182 Output Total 250 Balance 932 Result Diagrams: 09/30/19 03:09 09/30/19 03:09 Additional Labs: Accuchecks 09/30/19 09/30/19 09/30/19 10:54 06:16 04:55 POC Glucose 267 H 138 H 214 H 09/29/19 22:17 POC Glucose 130 H Hospitalist ROS - Medication Medications: Active Medications Generic Name Dose Route Start Last Admin Trade Name Freq PRN Reason Stop Dose Admin Amlodipine Besylate 5 mg 09/30/19 09:00 09/30/19 09:32 Norvasc PO 5 mg DAILY CLARISA Administration Aspirin 81 mg 09/30/19 09:00 09/30/19 09:32 Aspirin Chewable PO 81 mg DAILY CLARISA Administration Clonidine 0.1 mg 09/30/19 09:00 09/30/19 09:31 Catapres PO 0.1 mg BID CLARISA Administration Dextrose/Water 25 gm 09/29/19 22:09 09/30/19 04:25 Dextrose 50% SLOW IVP 25 gm PRN PRN Administration Hypoglycemia Enoxaparin Sodium 30 mg 09/30/19 09:00 09/30/19 09:34 Lovenox SC 30 mg 0900 CLARISA Administration Famotidine 20 mg 09/30/19 09:00 09/30/19 09:32 Pepcid PO 20 mg QAM CLARISA Administration Fluconazole 100 mg 09/30/19 09:00 09/30/19 09:31 Diflucan PO 100 mg DAILY CLARISA Administration Glipizide 5 mg 09/30/19 07:30 09/30/19 09:31 Glucotrol PO 5 mg DAILY-AC CLARISA Administration Hydralazine HCl 25 mg 09/30/19 09:00 09/30/19 09:31 Apresoline PO 25 mg TID CLARISA Administration Cefepime HCl 1 gm/ Sodium 100 mls @ 200 mls/hr 09/30/19 08:00 09/30/19 09:35 Chloride IVPB 100 mls 08,1999 CLARISA Administration Insulin Glargine 15 units/ 0.15 mls @ 0 mls/hr 09/30/19 09:00 09/30/19 09:37 Miscellaneous Medication SC 0.15 mls BID CLARISA Administration Sodium Chloride 1,000 mls @ 100 mls/hr 09/29/19 22:15 09/30/19 09:34 Normal Saline 0.9% IV 1,000 mls .Q10H CLARISA Administration Metoclopramide HCl 5 mg 09/30/19 07:30 09/30/19 09:32 Reglan PO 5 mg ACHS CLARISA Administration Senna/Docusate Sodium 2 tab 09/30/19 09:00 09/30/19 09:36 Senokot S PO Not Given BID CLARISA Sodium Chloride 10 ml 09/30/19 09:00 09/30/19 09:36 Flush - Normal Saline IVF 10 ml Q12HR CLARISA Administration - Exam General Appearance: NAD, awake alert Eye: PERRL ENT: normocephalic atraumatic Neck: supple Heart: RRR, no murmur, normal peripheral pulses Respiratory: CTAB, normal chest expansion Gastrointestinal: soft, normal bowel sounds Extremities: no cyanosis, no clubbing Neurological: cranial nerve grossly intact, no focal deficits Hosp A/P - Plan suspected sepsis - hypovolumic iwthout shock Sepsis likely also d/t UTI/ bacteremia Dehydration Hypovolumic hyponateremia Hypoglycemia with hx of DM2 ESBL E.coli bcateremia -u cx - neg. -flu neg -repeating the blood shanta today/ -ID consult placed -on vanc + cefepime -pharm c/s -IVNS - repeat labs in am -getting echo hyponateremia Hypokalemia Hypocalcemia -replacing -fw on mg and TSH levels. full code
[2019-09-30] MEDS ORDERED: Dextrose 5% in Water 1,000 ML IV PRN ×2 (14:54→14:58)
[2019-09-30] MEDS ORDERED: Dextrose 50% Abboject 50 ML SYRINGE SLOW IVP PRN (14:54)
[2019-09-30] MEDS ORDERED: NS 0.9% w/ 20 MEQ KCL 1,000 ML/1,000 ML BAG IV SCH (15:00)
[2019-09-30] MEDS ORDERED: Calcium Gluc 4.6 MEQ/10 ML (100 MG/ML) SLOW IVP SCH (16:00)
[2019-09-30 16:41] LABS: CKMB 4.7 ng/mL (0-6.6)
--- NOTE | 2019-09-30 17:47 | CON ---
DATE OF CONSULTATION: 09/30/2019 REASON FOR CONSULTATION: Urosepsis. HISTORY OF PRESENT ILLNESS: A 79-year-old who has a history of type 2 diabetes, hypertension, and a recent admission at the end of July due to nausea, vomiting, and suprapubic pain. She had an ESBL E coli isolated from urine and blood cultures were negative. She was treated with meropenem and discharged on Macrodantin. She took the antibiotic and remained well for the most of August, but then started having episodes of nausea and some chills over the past week and a half and now 3 days before things got really worse and she ended up admitted. The initial findings included some cough, but no sputum production, some abdominal pain in the flanks, mostly in suprapubic area, and she did have low-grade temperature elevation on arrival at the emergency room and pulse was 115 and blood pressure 190/70. On exam, the patient appeared uncomfortable, in moderate distress from pain in the abdominal area, bilateral lower quadrants and suprapubic area. The initial findings also included white cell count 20,000, hemoglobin 10, platelets 361 with 84% neutrophils. Sodium 125 and creatinine 1.2. Urinalysis with 11 to 20 wbc's. This time, we have 2 sets of blood cultures positive for E coli, which is the same one that was isolated in July from the urine sample. The current urine sample has no growth at 24 hours. She had an influenza test, which was negative. Currently, Ms. Mendoza is sitting in the recliner by the bedside, her daughter is in the room with her. She appears more comfortable. The suprapubic and abdominal pain has resolved. She denies headaches. She has chronic vision impairment. She has no sore throat. The cough has improved. No dyspnea or chest pain. No dysuria. Chronic arthritis like symptoms in the knees and ankles. No neurological symptoms. MEDICAL HISTORY: Includes: 1. Type 2 diabetes. 2. Hypertension. 3. Hypothyroidism. 4. Hyperlipidemia. 5. Recently treated episode of UTI and diagnosis of cystitis, but most likely she already had upper tract involvement and that explains the failure of treatment. SOCIAL HISTORY: Lives in [place] with children. Never smoker. ALLERGIES: PENICILLIN, MOSTLY A RASH LONG TIME AGO. CURRENT MEDICATIONS: 1. P.r.n. medications. 2. Norvasc. 3. Dulcolax. 4. Cefepime. 5. Clonidine. 6. Pepcid. 7. Diflucan. 8. Apresoline. 9. Humalog. 10. Reglan. 11. Zofran. 12. Pravachol. 13. Vancomycin. PHYSICAL EXAMINATION: VITAL SIGNS: T-max 99.1 and currently the patient is afebrile, BP 160/83, pulse 80, respirations 18, and O2 saturation 100, this is on 2 L. GENERAL: Appears chronically ill, but in no acute distress. SKIN: With no areas of skin breakdown. The patient has a peripheral IV access and is voiding in the toilet or in the diaper. She has no lymphadenopathy. HEENT: She has severe vision impairment on the right side and she has a little bit of better vision on the left. The oral cavity has no king salmon teeth. The oral mucosa appears normal. NECK: There is no jugular vein distention. No thyromegaly. LUNGS: Symmetric air entry. HEART: S1 and S2. Regular rate. No S3 or S4. ABDOMEN: Soft, not distended or tender. No ascites. No bladder distention. No more bladder tenderness like she used to have before. EXTREMITIES: She has chronic osteoarthrosis findings in the knees and ankles. Pulses are 1+ in dorsalis pedis. NEUROLOGIC: She is awake and alert and speech is normal. Recollection is fairly decent. Follows commands, pleasant. LABORATORY DATA: Urinalysis with 11 to 20 wbc's. The white cell count is up to 21,000, hemoglobin 8.4, and platelets 304. Liver profile was normal. The alkaline phosphatase is 178 and albumin 3.2. The cultures noted below. The patient had a CT of abdomen and pelvis, there was no kidney obstruction, no nephrolithiasis, and the bladder appeared okay on CT scan. No other abnormalities of significance. ASSESSMENT AND PLAN: Type 2 diabetes and hypertension with recent episode of nausea and vomiting, treated as cystitis with initially meropenem and then Macrodantin with an extended-spectrum beta-lactamase Escherichia coli. Now, she has recurrence of the process and most likely she had a pyelonephritis in July, and Macrodantin or nitrofurantoin does not lead to good outcomes in cases of more invasive urinary tract infection beyond the bladder, so we will switch her back to meropenem and plan a treatment for a total of at least 2 weeks if not longer. PICC line placement. Job ID: [id number]
[2019-09-30] MEDS: HumaLOG 300 UNITS/3 ML VIAL SC PRN (18:03)
[2019-09-30] MEDS: NS 0.9% w/ 20 MEQ KCL 1,000 ML/1,000 ML BAG IV SCH (18:03)
[2019-09-30 20:54] LABS: CKMB 4.8 ng/mL (0-6.6)
[2019-09-30] MEDS: Insulin Glargine 10 UNITS in Pre-Filled Syringe 1 EACH SC SCH (21:25)
[2019-09-30] MEDS: Pravastatin Sodium 20 MG TAB PO SCH (21:26)
[2019-09-30] MEDS: Vancomycin HCl 750 MG in Sodium Chloride 0.9% 250 ML 250 ML IVPB SCH (21:27)
[2019-10-01] MEDS ORDERED: Sodium Chloride 0.65% Nasal 44 ML BOT EA NARE PRN (01:10)
[2019-10-01] MEDS: Ondansetron PF 4 MG/2 ML Vial IVP PRN (02:04)
[2019-10-01 03:36] LABS: #Eosinphils 0.2 thou/uL (0.0-0.7); #Lymphocytes 0.9 thou/uL (1.20-3.40); #Monocytes 0.9 thou/uL (0.11-0.59); #Neutrophils 11.9 thou/uL (1.40-6.50); %Eosinophils 1.4 % (0.0-10.0); %Lymphocytes 6.3 % (21.0-51.0); %Monocytes 6.3 % (0.0-10.0); %Neutrophils 86.1 % (42.0-75.0); Hemoglobin 9.5 g/dL (12.0-16.0); Mean Corpuscular HGB CONC 34.9 g/dL (32.0-36.0); Mean Corpuscular Hemoglobin 30.2 pg (27.0-31.0); Mean Corpuscular Volume 86.4 fL (78.0-98.0); Mean Platelet Volume 7.1 fL (7.4-10.4); Platelet Count 320 thou/uL (130-400); Red Blood Cell (RBC) Count 3.15 mill/uL (4.20-5.40); White Blood Cell (WBC) Count 13.8 thou/uL (4.8-10.8)
[2019-10-01] MEDS: NS 0.9% w/ 20 MEQ KCL 1,000 ML/1,000 ML BAG IV SCH ×3 (04:22→21:34)
[2019-10-01] MEDS: MEROPENEM 1 GM/50 ML 1 GM in Premix Bag 1 BAG IVPB SCH ×2 (04:22→19:06)
[2019-10-01] MEDS ORDERED: Magnesium Sulfate 3 GM in Sodium Chloride 0.9% 100 ML IVPB SCH (08:30)
[2019-10-01] MEDS: Fluconazole 100 MG TAB PO SCH (09:14)
[2019-10-01] MEDS: Amlodipine 5 MG TAB PO SCH (09:14)
[2019-10-01] MEDS: cloNIDine 0.1 MG TAB PO SCH ×2 (09:15→21:19)
[2019-10-01] MEDS: Famotidine 20 MG TAB PO SCH (09:15)
[2019-10-01] MEDS: Senokot S 8.6-50 MG TAB PO SCH ×2 (09:17→21:23)
[2019-10-01] MEDS: hydrALAZINE 25 MG TAB PO SCH ×3 (09:19→21:19)
[2019-10-01] MEDS: Aspirin Chewable 81 MG TAB PO SCH (09:19)
[2019-10-01] MEDS: Enoxaparin Sodium 30 MG/0.3 ML SYRINGE SC SCH (09:26)
[2019-10-01] MEDS: Metoclopramide HCl 10 MG TAB PO SCH ×4 (09:26→21:22)
[2019-10-01] MEDS: Insulin Glargine 10 UNITS in Pre-Filled Syringe 1 EACH SC SCH ×2 (09:27→21:22)
[2019-10-01] MEDS: Potassium Chloride 20 MEQ TAB PO SCH (11:31)
[2019-10-01] MEDS: HumaLOG 300 UNITS/3 ML VIAL SC PRN (12:26)
--- NOTE | 2019-10-01 13:11 | RAD ---
Exam: 1 VIEW ABDOMEN: HISTORY: Vomiting. Evaluate for ileus. FINDINGS: Portable AP abdomen radiograph demonstrates a segment of air-filled loop of small bowel in the left h emiabdomen. Focal ileus versus a developing obstructive process is suspected. There is still evidence of bowel gas and fecal material in the colon. Note, the colon does not appear to be dilated or distended. Surgical clips in the right upper quadrant. Pleural and parenchymal changes in the lung bases. No acute osseous abnormalities. IMPRESSION: Air-filled loop of small bowel in the left hemiabdomen, possibly representing an ileus or partial obs tructive process. Correlation made with CT 09/29/2019 does not demonstrate a corresponding correlate. Better interrogation with a supine and upright abdomen radiograph would be beneficial. Transcribed Date/Time: 10/01/2019 1:13 PM
--- NOTE | 2019-10-01 14:15 | PDOC.HOSPP ---
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 afebrile, wbcs trending down. blood shanta no growth. - Objective Vital Signs & Weight: Vital Signs (12 hours) Temp Pulse Pulse Pulse BP BP BP 10/01/19 11:13 97.6 F 10/01/19 10:16 82 86 162/84 H 155/76 H 10/01/19 09:19 96 179/74 H 10/01/19 09:15 179/74 H 10/01/19 09:14 97 179/74 H 10/01/19 08:00 10/01/19 07:19 97.8 F 10/01/19 04:00 97.7 F Pulse Ox 10/01/19 11:13 10/01/19 10:16 10/01/19 09:19 10/01/19 09:15 10/01/19 09:14 10/01/19 08:00 98 10/01/19 07:19 10/01/19 04:00 Weight Weight 167 lb 8 oz Most Recent Monitor Data Heart Rate from ECG 81 NIBP 147/83 NIBP BP-Mean 104 Respiration from ECG 24 SpO2 100 I&O: 09/30/19 10/01/19 10/02/19 06:59 06:59 06:59 Intake Total 1182 3896 Output Total 250 1300 Balance 932 2596 Result Diagrams: 10/01/19 03:14 09/30/19 03:09 Additional Labs: Accuchecks 10/01/19 10/01/19 10/01/19 10:35 05:46 03:17 POC Glucose 285 H 118 H 81 09/30/19 09/30/19 21:01 16:53 POC Glucose 227 H 194 H Hospitalist ROS - Medication Medications: Active Medications Generic Name Dose Route Start Last Admin Trade Name Freq PRN Reason Stop Dose Admin Amlodipine Besylate 5 mg 09/30/19 09:00 10/01/19 09:14 Norvasc PO 5 mg DAILY CLARISA Administration Aspirin 81 mg 09/30/19 09:00 10/01/19 09:19 Aspirin Chewable PO 81 mg DAILY CLARISA Administration Clonidine 0.1 mg 09/30/19 09:00 10/01/19 09:15 Catapres PO 0.1 mg BID CLARISA Administration Clonidine 0.1 mg 09/29/19 22:09 10/01/19 02:03 Catapres PO 0.1 mg Q4H PRN Administration sbp>170 Dextrose/Water 25 gm 09/29/19 22:09 09/30/19 04:25 Dextrose 50% SLOW IVP 25 gm PRN PRN Administration Hypoglycemia Enoxaparin Sodium 30 mg 09/30/19 09:00 10/01/19 09:26 Lovenox SC 30 mg 0900 CLARISA Administration Famotidine 20 mg 09/30/19 09:00 10/01/19 09:15 Pepcid PO 20 mg QAM CLARISA Administration Fluconazole 100 mg 09/30/19 09:00 10/01/19 09:14 Diflucan PO 100 mg DAILY CLARISA Administration Hydralazine HCl 37.5 mg 10/01/19 09:00 10/01/19 09:19 Apresoline PO 37.5 mg TID CLARISA Administration Vancomycin HCl 750 mg/ Sodium 250 mls @ 250 mls/hr 09/30/19 21:00 09/30/19 21 :27 Chloride IVPB 250 mls Q24HR CLARISA Administration Insulin Glargine 10 units/ 0.1 mls @ 0 mls/hr 09/30/19 21:00 10/01/19 09:27 Miscellaneous Medication SC 0.1 mls BID CLARISA Administration Potassium Chloride/Sodium Chloride 1,000 ml in 1,000 mls @ 100 mls/hr 16:00 10/01/19 13:23 Ns 0.9% W/ 20 Meq Kcl IV 1,000 mls .Q10H CLARISA Administration Meropenem 1 gm/ Device 50 mls @ 100 mls/hr 10/01/19 04:00 10/01/19 04:22 IVPB 50 mls 0400,1600 CLARISA Administration Insulin Human Lispro 0 units 09/30/19 14:58 10/01/19 12:26 Humalog SC 6 units .MODERATE SLIDING SC PRN Administration Moderate Correctional Scale Metoclopramide HCl 5 mg 09/30/19 07:30 10/01/19 11:32 Reglan PO 5 mg ACHS CLARISA Administration Ondansetron HCl 4 mg 09/29/19 22:09 10/01/19 02:04 Zofran IVP 4 mg Q6H PRN Administration Nausea/Vomiting Potassium Chloride 40 meq 10/01/19 11:15 10/01/19 11:31 K-Dur PO 40 meq 1115 CLARISA Administration Pravastatin Sodium 20 mg 09/30/19 21:00 09/30/19 21:26 Pravachol PO 20 mg QPM CLARISA Administration Senna/Docusate Sodium 2 tab 09/30/19 09:00 10/01/19 09:17 Senokot S PO 2 tab BID CLARISA Administration Sodium Chloride 10 ml 09/30/19 09:00 10/01/19 09:44 Flush - Normal Saline IVF 10 ml Q12HR CLARISA Administration Sodium Chloride 0 ml 10/01/19 01:10 10/01/19 01:32 [place] Nasal [place] 0.65% EA NARE 2 spray TID PRN Administration Nasal Congestion - Exam General Appearance: NAD, awake alert Eye: PERRL ENT: normocephalic atraumatic Neck: supple Heart: RRR Respiratory: CTAB, normal chest expansion Gastrointestinal: soft, normal bowel sounds Hosp A/P - Plan suspected sepsis - hypovolumic iwthout shock Sepsis likely also d/t UTI/ bacteremia Dehydration Hypovolumic hyponateremia Hypoglycemia with hx of DM2 Abn troponin d/t sepsis, type II. --> plateaued. ESBL E.coli bcateremia -u cx - neg. -flu neg -repeating the blood shanta today/ -wbcs trending down. blood shanta no growth. -ID consult placed -on vanc + cefepime -pharm c/s -IV NS hyponateremia Hypokalemia Hypocalcemia Hypomagnesemia -replaced even though u shanta < 5000 colonies of GNR, blood shanta positive wait another 24 hrs for repeat shanta to be negative bef.. de-escalating the abx. Echo - mitral v calcification, no marvin vegetation, nl EF. full code
[2019-10-01 14:53] LABS: Anion Gap 14 mmol/L (10-20); BUN (Urea Nitrogen) 20 mg/dL (9.8-20.1); Calc. Creatinine Clearance 35 mL/min (70-130); Calcium 7.6 mg/dL (7.8-10.44); Carbon Dioxide 16 mmol/L (23-31); Chloride 90 mmol/L (98-107); Estimated GFR-MDRD 32; Glucose 198 mg/dL (83-110); Potassium 4.1 mmol/L (3.5-5.1)
[2019-10-01 14:57] LABS: Sodium 116 mmol/L (136-145)
[2019-10-01] MEDS: Aztreonam 1 GM in Sodium Chloride 0.9% 100 ML IVPB SCH (16:49)
--- NOTE | 2019-10-01 18:42 | RAD ---
ONE VIEW ABDOMEN: History: NG tube placement. Comparison: None. FINDINGS: NG tube is identified, coiling in the thoracic esophagus. Distal tip is not included. IMPRESSION: Repositioning of the nasogastric tube is recommended. Results of study conveyed to Dr. Pollock 10-01-19 at 6:25 p.m. Code CR POS: PPP
--- NOTE | 2019-10-01 18:49 | RAD ---
ONE VIEW ABDOMEN: History: NG tube re-positioning Comparison: 10-01-2019 FINDINGS: There has been re-positioning of the nasogastric tube which now appears to be in the stomach, likely at the level of the gastric cardia which appears to be supradiaphragmatic and compatible with a known hiatal hernia. IMPRESSION: NG tube as above. POS: PPP
[2019-10-01] MEDS: Pravastatin Sodium 20 MG TAB PO SCH (21:23)
[2019-10-01 21:50] LABS: Vancomycin, Trough 14.1 ug/mL
[2019-10-01] MEDS ORDERED: Vancomycin HCl 750 MG in Sodium Chloride 0.9% 250 ML 250 ML IVPB SCH (22:30)
[2019-10-02] MEDS: Vancomycin HCl 750 MG in Sodium Chloride 0.9% 250 ML 250 ML IVPB SCH (00:03)
[2019-10-02] MEDS: Aztreonam 1 GM in Sodium Chloride 0.9% 100 ML IVPB SCH ×2 (02:35→15:04)
[2019-10-02 04:15] LABS: #Eosinphils 0.1 thou/uL (0.0-0.7); #Lymphocytes 1.2 thou/uL (1.20-3.40); #Monocytes 0.4 thou/uL (0.11-0.59); #Neutrophils 7.2 thou/uL (1.40-6.50); %Basophils 0.4 % (0.0-1.0); %Eosinophils 1.1 % (0.0-10.0); %Lymphocytes 13.4 % (21.0-51.0); %Monocytes 4.8 % (0.0-10.0); %Neutrophils 80.4 % (42.0-75.0); Hemoglobin 8.1 g/dL (12.0-16.0); Mean Corpuscular HGB CONC 34.7 g/dL (32.0-36.0); Mean Corpuscular Hemoglobin 29.5 pg (27.0-31.0); Mean Corpuscular Volume 84.9 fL (78.0-98.0); Mean Platelet Volume 7.3 fL (7.4-10.4); Platelet Count 319 thou/uL (130-400); RBC Distribution Width 12.1 % (11.5-14.5); Red Blood Cell (RBC) Count 2.75 mill/uL (4.20-5.40)
[2019-10-02] MEDS: MEROPENEM 1 GM/50 ML 1 GM in Premix Bag 1 BAG IVPB SCH ×2 (04:22→15:07)
[2019-10-02] MEDS: Dextrose 50% Abboject 50 ML SYRINGE SLOW IVP PRN (05:47)
[2019-10-02] MEDS: D5 0.9% NS w/ 20 mEq KCl 1,000 ML IV SCH ×2 (06:42→20:42)
[2019-10-02 07:03] LABS: Anion Gap 13 mmol/L (10-20); BUN (Urea Nitrogen) 21 mg/dL (9.8-20.1); Calc. Creatinine Clearance 35 mL/min (70-130); Calcium 7.9 mg/dL (7.8-10.44); Carbon Dioxide 17 mmol/L (23-31); Chloride 92 mmol/L (98-107); Estimated GFR-MDRD 32; Glucose 149 mg/dL (83-110); Potassium 4.2 mmol/L (3.5-5.1)
[2019-10-02 07:08] LABS: Sodium 118 mmol/L (136-145)
[2019-10-02 09:51] LABS: Anion Gap 15 mmol/L (10-20); BUN (Urea Nitrogen) 21 mg/dL (9.8-20.1); Calc. Creatinine Clearance 33 mL/min (70-130); Calcium 7.8 mg/dL (7.8-10.44); Carbon Dioxide 16 mmol/L (23-31); Chloride 93 mmol/L (98-107); Estimated GFR-MDRD 30; Glucose 153 mg/dL (83-110); Potassium 4.5 mmol/L (3.5-5.1)
[2019-10-02 10:28] LABS: Sodium 119 mmol/L (136-145)
[2019-10-02] MEDS: Insulin Glargine 10 UNITS in Pre-Filled Syringe 1 EACH SC SCH ×2 (11:36→22:41)
[2019-10-02] MEDS: Metoclopramide HCl 10 MG TAB PO SCH ×4 (11:36→22:29)
[2019-10-02] MEDS: cloNIDine 0.1 MG TAB PO SCH ×2 (11:44→22:56)
[2019-10-02] MEDS: hydrALAZINE 25 MG TAB PO SCH ×3 (11:44→22:28)
[2019-10-02] MEDS: Potassium Chloride 20 MEQ TAB PO SCH (11:45)
[2019-10-02] MEDS: Amlodipine 5 MG TAB PO SCH (11:45)
[2019-10-02] MEDS: Fluconazole 100 MG TAB PO SCH (11:45)
[2019-10-02] MEDS: Famotidine 20 MG TAB PO SCH (11:45)
[2019-10-02] MEDS: Enoxaparin Sodium 30 MG/0.3 ML SYRINGE SC SCH (11:46)
[2019-10-02] MEDS: Senokot S 8.6-50 MG TAB PO SCH ×2 (11:46→22:36)
[2019-10-02] MEDS: Aspirin Chewable 81 MG TAB PO SCH (11:46)
--- NOTE | 2019-10-02 14:40 | SPC ---
Sonographic guided left upper extremity PICC placement HISTORY: Urinary tract infection. FINDINGS: After explaining the procedure and answering all questions, left upper extremity was preppe d and draped in usual sterile fashion. Sterile technique, buffered local anesthesia, sonographic guidance, and a 22-gauge needle were used to carefully access the left basilic vein. Standard technAC Immune SA ue was used to place the tip of a 5 Telugu single lumen PICC so that the tip lies at the level of the superior vena cava. Catheter was flushed and secured externally. Patient tolerated the procedure well. Fluoroscopy time 0 seconds. IMPRESSION : Left upper extremity PICC is ready for use.
--- NOTE | 2019-10-02 15:12 | PDOC.HOSPP ---
- Subjective Encounter Date: 10/02/19 Encounter Time: 11:20 Subjective: NG tube in place - still putting out yellowish brown fluid. abd is soft. talk to the family at bedside, Na on the low side. on NS - Objective Vital Signs & Weight: Vital Signs (12 hours) Temp Pulse Pulse Pulse Pulse BP BP 10/02/19 15:06 80 172/96 H 10/02/19 12:36 77 184/132 H 10/02/19 11:45 80 172/96 H 10/02/19 11:44 80 172/96 H 10/02/19 11:28 97.0 F L 10/02/19 09:18 122 H 130 H 10/02/19 08:00 10/02/19 07:21 96.4 F L 10/02/19 03:53 97.6 F BP BP Pulse Ox Pulse Ox Pulse Ox 10/02/19 15:06 10/02/19 12:36 10/02/19 11:45 10/02/19 11:44 10/02/19 11:28 10/02/19 09:18 186/90 H 180/106 H 99 98 10/02/19 08:00 99 10/02/19 07:21 10/02/19 03:53 Weight Admit Weight 167 lb 8 oz Weight 167 lb 8 oz Most Recent Monitor Data Heart Rate from ECG 82 NIBP 158/75 NIBP BP-Mean 102 Respiration from ECG 18 SpO2 98 I&O: 10/01/19 10/02/19 10/03/19 06:59 06:59 06:59 Intake Total 3896 2936 Output Total 1300 1250 Balance 2596 1686 Result Diagrams: 10/02/19 03:02 10/02/19 09:16 Additional Labs: Accuchecks 10/02/19 10/02/19 10/02/19 12:18 08:09 06:31 POC Glucose 170 H 152 H 164 H 10/02/19 10/02/19 10/01/19 05:31 01:36 21:15 POC Glucose 64 L 87 111 H 10/01/19 16:32 POC Glucose 137 H Hospitalist ROS - Medication Medications: Active Medications Generic Name Dose Route Start Last Admin Trade Name Freq PRN Reason Stop Dose Admin Amlodipine Besylate 5 mg 09/30/19 09:00 10/02/19 11:45 Norvasc PO 5 mg DAILY CLARISA Administration Aspirin 81 mg 09/30/19 09:00 10/02/19 11:46 Aspirin Chewable PO 81 mg DAILY CLARISA Administration Clonidine 0.1 mg 09/30/19 09:00 10/02/19 11:44 Catapres PO 0.1 mg BID CLARISA Administration Clonidine 0.1 mg 09/29/19 22:09 10/01/19 02:03 Catapres PO 0.1 mg Q4H PRN Administration sbp>170 Enoxaparin Sodium 30 mg 09/30/19 09:00 10/02/19 11:46 Lovenox SC Not Given 09 CLARISA Famotidine 20 mg 09/30/19 09:00 10/02/19 11:45 Pepcid PO 20 mg QAM CLARISA Administration Fluconazole 100 mg 09/30/19 09:00 10/02/19 11:45 Diflucan PO 100 mg DAILY CLARISA Administration Hydralazine HCl 37.5 mg 10/01/19 09:00 10/02/19 15:06 Apresoline PO 37.5 mg TID CLARISA Administration Insulin Glargine 10 units/ 0.1 mls @ 0 mls/hr 09/30/19 21:00 10/02/19 11:36 Miscellaneous Medication SC Not Given BID CLARISA Meropenem 1 gm/ Device 50 mls @ 100 mls/hr 10/01/19 04:00 10/02/19 15:07 IVPB 50 mls 0400,1600 CLARISA Administration Aztreonam 1 gm/ Sodium 100 mls @ 100 mls/hr 10/01/19 15:00 10/02/19 15:04 Chloride IVPB 100 mls 0300,1500 CLARISA Administration Potassium Chloride/Dextrose/Sod Cl 1,000 mls @ 100 mls/hr 10/02/19 06:30 06:42 D5 0.9% Ns W/ 20 Meq Kcl IV 1,000 mls .Q10H CLARISA Administration Insulin Human Lispro 0 units 09/30/19 14:58 10/01/19 12:26 Humalog SC 6 units .MODERATE SLIDING SC PRN Administration Moderate Correctional Scale Metoclopramide HCl 5 mg 09/30/19 07:30 10/02/19 11:44 Reglan PO 5 mg ACHS CLARISA Administration Ondansetron HCl 4 mg 09/29/19 22:09 10/01/19 02:04 Zofran IVP 4 mg Q6H PRN Administration Nausea/Vomiting Potassium Chloride 40 meq 10/01/19 11:15 10/02/19 11:45 K-Dur PO 40 meq 1115 CLARISA Administration Pravastatin Sodium 20 mg 09/30/19 21:00 10/01/19 21:23 Pravachol PO 20 mg QPM CLARISA Administration Senna/Docusate Sodium 2 tab 09/30/19 09:00 10/02/19 11:46 Senokot S PO 2 tab BID CLARISA Administration Sodium Chloride 10 ml 09/30/19 09:00 10/02/19 11:47 Flush - Normal Saline IVF 10 ml Q12HR CLARISA Administration Sodium Chloride 0 ml 10/01/19 01:10 10/01/19 01:32 [place] Nasal [place] 0.65% EA NARE 2 spray TID PRN Administration Nasal Congestion - Exam General Appearance: NAD, awake alert Eye: PERRL ENT: normocephalic atraumatic Neck: supple, no lymphadenopathy Heart: RRR Respiratory: CTAB, normal chest expansion Gastrointestinal: soft, normal bowel sounds Hosp A/P - Plan suspected sepsis - hypovolumic iwthout shock Sepsis likely also d/t UTI/ bacteremia Dehydration Hypovolumic hyponateremia Hypoglycemia with hx of DM2 Abn troponin d/t sepsis, type II. --> plateaued. ESBL E.coli bcateremia -u cx - neg. -flu neg -repeating the blood shanta / -wbcs trending down. blood shanta no growth x 48hrs--- will dc vanc. -ID consult placed -on vanc + cefepime -pharm c/s -IV NS Ileus - NG tube put out over 500 ml last night and this PM, 200 ml. -will clamp and trial of CLD. hyponateremia on NS. goal 6-8 meq/23hrs, renal consult placed. Hypokalemia----------------> improved Hypocalcemia-------> corrected Hypomagnesemia-----> corrected even though u shanta < 5000 colonies of GNR, blood shanta positive wait another 24 hrs for repeat shanta to be negative bef.. de-escalating the abx. Echo - mitral v calcification, no marvin vegetation, nl EF. full code
--- NOTE | 2019-10-02 16:42 | CON ---
DATE OF CONSULTATION: REQUESTING PHYSICIAN: Dr. Cadena. REASON FOR CONSULTATION: Hyponatremia. IMPRESSION: Hyponatremia. From previous experience, this was more or less in the context of hydrochlorothiazide usage possibly during this hospitalization as the patient continued to take hydrochlorothiazide despite the recommendation to discontinue same from last hospitalization. PLAN: 1. Get a urine sodium and urine osmolality to further confirm rule out possibility of hydrochlorothiazide-induced hyponatremia. 2. Discontinue hydrochlorothiazide permanently. 3. Gentle rehydration. 4. Further management will depend on the clinical course as well as a result of the urine chemistry. HISTORY: This is a 79-year-old female patient, who presented with intractable nausea and vomiting of about 3 days duration with abdominal pain and noted to be severely hyponatremic with low sodium of about 118. The patient during the hospitalization was felt to be hyponatremia in the context of similar clinical presentation in addition to the use of hydrochlorothiazide. On closer clinical evaluation of this patient, clinical records did indicate that this patient still continuing the hydrochlorothiazide combined with Benicar despite the recommendation on her previous hospitalization to discontinue the same. As a result of the low sodium, decision has been taken to involve Renal in the management of this case. PAST MEDICAL HISTORY: Diabetes mellitus type 2, gastroparesis, hypothyroidism, dyslipidemia, hypertension, status post cholecystectomy, and reflux disease. MEDICATIONS: Reviewed and as documented on [facility]. ALLERGIES: PENICILLIN. SOCIAL HISTORY: No alcohol. No tobacco. No illicit drug use. FAMILY HISTORY: Not significantly related to present illness. REVIEW OF SYSTEMS: Highly limited, but otherwise unremarkable. PHYSICAL EXAMINATION: GENERAL: The patient was found not to be in any obvious distress with an NG tube in place. VITAL SIGNS: Noted with the following vital signs. Blood pressure 158/75, pulse of 82, respiratory rate of 18, and O2 saturation of 98%. HEENT: Unremarkable. CARDIOVASCULAR SYSTEM: First and second heart sounds were heard. RESPIRATORY SYSTEM: Clear to auscultation. DIGESTIVE SYSTEM: Benign abdomen with positive bowel sounds. EXTREMITIES: No peripheral edema. SKIN: No new gross rash. LYMPHATICS: No peripheral lymphadenopathy. SUMMARY: This is a 79-year-old female patient, who presented with intractable nausea and vomiting, and noted to be hyponatremic in the context of hydrochlorothiazide usage, possible dehydration. Thank you for this consultation. We will follow with you. Job ID: [id number]
[2019-10-02 18:17] LABS: Anion Gap 11 mmol/L (10-20); BUN (Urea Nitrogen) 22 mg/dL (9.8-20.1); Calc. Creatinine Clearance 35 mL/min (70-130); Calcium 7.9 mg/dL (7.8-10.44); Carbon Dioxide 18 mmol/L (23-31); Chloride 95 mmol/L (98-107); Estimated GFR-MDRD 32; Glucose 130 mg/dL (83-110); Potassium 4.7 mmol/L (3.5-5.1)
[2019-10-02 18:23] LABS: Sodium 119 mmol/L (136-145)
[2019-10-02] MEDS ORDERED: Vancomycin HCl 750 MG in Sodium Chloride 0.9% 250 ML 250 ML IVPB SCH (22:00)
[2019-10-02] MEDS: Pravastatin Sodium 20 MG TAB PO SCH (22:36)
[2019-10-02] MEDS ORDERED: Sodium Bicarbonate Tab 325 MG TAB PER TUBE PRN (23:57)
[2019-10-02] MEDS ORDERED: Pancrelipase DR 12000 1 CAP FS PRN (23:57)
[2019-10-03] MEDS: Aztreonam 1 GM in Sodium Chloride 0.9% 100 ML IVPB SCH ×2 (02:52→15:38)
[2019-10-03] MEDS: MEROPENEM 1 GM/50 ML 1 GM in Premix Bag 1 BAG IVPB SCH ×2 (03:57→15:37)
[2019-10-03 09:12] LABS: #Eosinphils 0.2 thou/uL (0.0-0.7); #Lymphocytes 1.4 thou/uL (1.20-3.40); #Monocytes 0.6 thou/uL (0.11-0.59); #Neutrophils 6.3 thou/uL (1.40-6.50); %Basophils 0.1 % (0.0-1.0); %Eosinophils 1.8 % (0.0-10.0); %Lymphocytes 16.1 % (21.0-51.0); %Monocytes 7.5 % (0.0-10.0); %Neutrophils 74.4 % (42.0-75.0); Hemoglobin 9.6 g/dL (12.0-16.0); Mean Corpuscular HGB CONC 34.5 g/dL (32.0-36.0); Mean Corpuscular Hemoglobin 29.7 pg (27.0-31.0); Mean Corpuscular Volume 86.1 fL (78.0-98.0); Mean Platelet Volume 6.9 fL (7.4-10.4); Platelet Count 372 thou/uL (130-400); RBC Distribution Width 12.4 % (11.5-14.5); Red Blood Cell (RBC) Count 3.23 mill/uL (4.20-5.40); White Blood Cell (WBC) Count 8.4 thou/uL (4.8-10.8)
[2019-10-03 09:29] LABS: Anion Gap 10 mmol/L (10-20); BUN (Urea Nitrogen) 21 mg/dL (9.8-20.1); Calc. Creatinine Clearance 36 mL/min (70-130); Calcium 7.9 mg/dL (7.8-10.44); Carbon Dioxide 19 mmol/L (23-31); Chloride 98 mmol/L (98-107); Estimated GFR-MDRD 33; Glucose 155 mg/dL (83-110); Sodium 122 mmol/L (136-145)
[2019-10-03] MEDS: Fluconazole 100 MG TAB PO SCH (10:04)
[2019-10-03] MEDS: cloNIDine 0.1 MG TAB PO SCH ×2 (10:04→20:45)
[2019-10-03] MEDS: Amlodipine 5 MG TAB PO SCH (10:05)
[2019-10-03] MEDS: hydrALAZINE 25 MG TAB PO SCH ×3 (10:05→20:45)
[2019-10-03] MEDS: Famotidine 20 MG TAB PO SCH (10:05)
[2019-10-03] MEDS: Aspirin Chewable 81 MG TAB PO SCH (10:05)
[2019-10-03] MEDS: Metoclopramide HCl 10 MG TAB PO SCH ×4 (10:05→20:43)
[2019-10-03] MEDS: Senokot S 8.6-50 MG TAB PO SCH ×2 (10:06→20:50)
[2019-10-03] MEDS: Insulin Glargine 10 UNITS in Pre-Filled Syringe 1 EACH SC SCH ×2 (10:06→20:57)
[2019-10-03] MEDS: Potassium Chloride 20 MEQ TAB PO SCH (10:06)
[2019-10-03] MEDS: Enoxaparin Sodium 30 MG/0.3 ML SYRINGE SC SCH (10:07)
--- NOTE | 2019-10-03 11:14 | RAD ---
ABDOMEN 1 VIEW: Date: 10/03/2019 HISTORY: Suspected ileus. COMPARISON: Radiograph 2 days prior. FINDINGS: Enteric tube is in place with tip above the diaphragm. This may be coiled within a hernia. Relative paucity of bowel gas. No dilated air-filled loops of large or small bowel. IMPRESSION: 1. Enteric tube coiled within a hiatal hernia. Recommend retraction and readvancement. 2. No evidence for bowel obstruction. POS: HOME
[2019-10-03 12:58] LABS: ALT (SGPT) 12 U/L (8-55); AST (SGOT) 24 U/L (5-34); Albumin 2.4 g/dL (3.4-4.8); Alkaline Phosphatase 136 U/L (40-110); Bilirubin, Direct 0.1 mg/dL (0.1-0.3); Bilirubin, Total 0.2 mg/dL (0.2-1.2); Lipase 14 U/L (8-78); Magnesium 1.6 mg/dL (1.6-2.6); Protein, Total 5.7 g/dL (6.0-8.3)
--- NOTE | 2019-10-03 14:47 | PDOC.HOSPP ---
- Subjective Encounter Date: 10/03/19 Encounter Time: 12:35 Subjective: still nauseated, passing gas. NGT not putting out much. abd exam - benign, no gaurding, or tenderness. - Objective Vital Signs & Weight: Vital Signs (12 hours) Temp BP Pulse Ox 10/03/19 11:57 96.7 F L 10/03/19 10:05 172/96 H 10/03/19 10:04 172/96 H 10/03/19 08:00 97 10/03/19 07:35 96.7 F L 10/03/19 03:38 97.4 F L 10/03/19 02:48 96 Weight Admit Weight 167 lb 8 oz Weight 167 lb 8 oz Most Recent Monitor Data Heart Rate from ECG 63 NIBP 151/69 NIBP BP-Mean 96 Respiration from ECG 20 SpO2 100 I&O: 10/02/19 10/03/19 10/04/19 06:59 06:59 06:59 Intake Total 2936 1154 Output Total 1250 450 Balance 1686 704 Result Diagrams: 10/03/19 09:01 10/03/19 09:01 Additional Labs: Accuchecks 10/03/19 10/03/19 10/03/19 13:23 07:59 04:00 POC Glucose 189 H 154 H 131 H 10/03/19 10/02/19 10/02/19 00:27 20:13 16:13 POC Glucose 171 H 194 H 132 H Hospitalist ROS - Medication Medications: Active Medications Generic Name Dose Route Start Last Admin Trade Name Freq PRN Reason Stop Dose Admin Amlodipine Besylate 5 mg 09/30/19 09:00 10/03/19 10:05 Norvasc PO 5 mg DAILY CLARISA Administration Lipase/Protease/Amylase 1 cap 10/02/19 23:57 10/03/19 00:08 [place] [id number] FS 1 cap .PER PROTOCOL PRN Administration TUBE OCCLUSION PROTOCOL Aspirin 81 mg 09/30/19 09:00 10/03/19 10:05 Aspirin Chewable PO 81 mg DAILY CLARISA Administration Clonidine 0.1 mg 09/30/19 09:00 10/03/19 10:04 Catapres PO 0.1 mg BID CLARISA Administration Clonidine 0.1 mg 09/29/19 22:09 10/01/19 02:03 Catapres PO 0.1 mg Q4H PRN Administration sbp>170 Enoxaparin Sodium 30 mg 09/30/19 09:00 10/03/19 10:07 Lovenox SC 30 mg 0900 CLARISA Administration Famotidine 20 mg 09/30/19 09:00 10/03/19 10:05 Pepcid PO 20 mg QAM CLARISA Administration Fluconazole 100 mg 09/30/19 09:00 10/03/19 10:04 Diflucan PO 100 mg DAILY CLARISA Administration Hydralazine HCl 37.5 mg 10/01/19 09:00 10/03/19 10:05 Apresoline PO 37.5 mg TID CLARISA Administration Insulin Glargine 10 units/ 0.1 mls @ 0 mls/hr 09/30/19 21:00 10/03/19 10:06 Miscellaneous Medication SC 0.1 mls BID CLARISA Administration Meropenem 1 gm/ Device 50 mls @ 100 mls/hr 10/01/19 04:00 10/03/19 03:57 IVPB 50 mls 0400,1600 CLARISA Administration Aztreonam 1 gm/ Sodium 100 mls @ 100 mls/hr 10/01/19 15:00 10/03/19 02:52 Chloride IVPB 100 mls 0300,1500 CLARISA Administration Potassium Chloride/Dextrose/Sod Cl 1,000 mls @ 100 mls/hr 10/02/19 06:30 20:42 D5 0.9% Ns W/ 20 Meq Kcl IV 1,000 mls .Q10H CLARISA Administration Insulin Human Lispro 0 units 09/30/19 14:58 10/01/19 12:26 Humalog SC 6 units .MODERATE SLIDING SC PRN Administration Moderate Correctional Scale Metoclopramide HCl 5 mg 09/30/19 07:30 10/03/19 12:46 Reglan PO Not Given ACHS [facility] Ondansetron HCl 4 mg 09/29/19 22:09 10/01/19 02:04 Zofran IVP 4 mg Q6H PRN Administration Nausea/Vomiting Potassium Chloride 40 meq 10/01/19 11:15 10/03/19 10:06 K-Dur PO 40 meq 1115 CLARISA Administration Pravastatin Sodium 20 mg 09/30/19 21:00 10/02/19 22:36 Pravachol PO 20 mg QPM CLARISA Administration Senna/Docusate Sodium 2 tab 09/30/19 09:00 10/03/19 10:06 Senokot S PO 2 tab BID CLARISA Administration Sodium Bicarbonate 650 mg 10/02/19 23:57 10/03/19 00:08 Bicarbonate, Sodium PER TUBE 650 mg .PER PROTOCOL PRN Administration ENTERAL TUBE OCCLUSION Sodium Chloride 10 ml 09/30/19 09:00 10/03/19 10:08 Flush - Normal Saline IVF 10 ml Q12HR CLARISA Administration Sodium Chloride 0 ml 10/01/19 01:10 10/01/19 01:32 [place] Nasal [place] 0.65% EA NARE 2 spray TID PRN Administration Nasal Congestion - Exam Eye: PERRL ENT: normocephalic atraumatic Neck: supple Heart: RRR Respiratory: CTAB, normal chest expansion Gastrointestinal: soft, non-tender, non-distended, normal bowel sounds Hosp A/P - Plan suspected sepsis - hypovolumic iwthout shock Sepsis likely also d/t UTI/ bacteremia Dehydration Hypovolumic hyponateremia Hypoglycemia with hx of DM2 Abn troponin d/t sepsis, type II. --> plateaued. ESBL E.coli bcateremia -u cx - neg. -flu neg -repeating the blood shanta / -wbcs trending down. blood shanta no growth x 48hrs---> vanc. ---> dc'd. -on vanc + cefepime-----------> merum -pharm c/s -IV NS Recurrent UTI -last one in july -ineffective tx in the past w.. macrobid. -started on merum for 2 weeks --PICC line in place. -appreciate ID help. Ileus - NG tube put out over 500 ml last night and this PM, 200 ml. -will clamp and trial of CLD.-->repeat KUB - coiled in hiatal hernia --will remove and start CLD hyponateremia on NS. goal 6-8 meq/23hrs, renal consult placed. Hypokalemia----------------> improved Hypocalcemia-------> corrected Hypomagnesemia-----> corrected even though u shanta < 5000 colonies of GNR, blood shanta positive wait another 24 hrs for repeat hsanta to be negative bef.. de-escalating the abx. Echo - mitral v calcification, no marvin vegetation, nl EF. full code
--- NOTE | 2019-10-03 17:05 | PRG ---
DATE OF SERVICE: 10/03/2019 OBJECTIVE: VITAL SIGNS: The patient noted with the following vital signs; afebrile, temperature 96.6, blood pressure 172/96, with a pulse of 63, respiratory rate of 20, and O2 saturation 100%. HEENT: Unremarkable. CARDIOVASCULAR: First and second sounds were heard. RESPIRATORY: Clear to auscultation. DIGESTIVE: Revealed a benign abdomen. EXTREMITIES: No peripheral edema. SKIN: No new gross rash. LYMPHATICS: No peripheral lymphadenopathy. LABORATORY INVESTIGATION: Significant for sodium of 122 and bicarb of 19. IMPRESSION: 1. Hyponatremia, improving. This is more or less in the context of hydrochlorothiazide usage and possible dehydration. 2. Chronic kidney disease stage 3. 3. Hypertension, suboptimally controlled. PLAN: 1. We will continue with current renal supportive measures. 2. We will begin to deescalate IV fluid. 3. We will discontinue potassium supplementation as the patient's potassium is above 5.0 now. 4. Further management will be dependent on the clinical course. Job ID: [id number]
[2019-10-03] MEDS: D5 0.9% NS w/ 20 mEq KCl 1,000 ML IV SCH (18:07)
[2019-10-03] MEDS: Sodium Bicarbonate 150 MEQ in Dextrose 5% in Water 1,000 ML IV SCH (18:38)
[2019-10-03] MEDS: Pravastatin Sodium 20 MG TAB PO SCH (20:49)
[2019-10-03] MEDS: Ondansetron PF 4 MG/2 ML Vial IVP PRN (23:10)
[2019-10-04] MEDS: Aztreonam 1 GM in Sodium Chloride 0.9% 100 ML IVPB SCH ×2 (02:14→14:15)
[2019-10-04] MEDS: MEROPENEM 1 GM/50 ML 1 GM in Premix Bag 1 BAG IVPB SCH ×2 (03:06→15:57)
[2019-10-04 04:47] LABS: Anion Gap 11 mmol/L (10-20); BUN (Urea Nitrogen) 22 mg/dL (9.8-20.1); Calc. Creatinine Clearance 37 mL/min (70-130); Calcium 7.9 mg/dL (7.8-10.44); Carbon Dioxide 20 mmol/L (23-31); Chloride 99 mmol/L (98-107); Estimated GFR-MDRD 34; Glucose 81 mg/dL (83-110); Sodium 125 mmol/L (136-145)
[2019-10-04] MEDS: Enoxaparin Sodium 30 MG/0.3 ML SYRINGE SC SCH (09:31)
[2019-10-04] MEDS: hydrALAZINE 25 MG TAB PO SCH ×3 (09:31→21:17)
[2019-10-04] MEDS: Sodium Bicarbonate 150 MEQ in Dextrose 5% in Water 1,000 ML IV SCH (09:31)
[2019-10-04] MEDS: Senokot S 8.6-50 MG TAB PO SCH ×2 (09:33→21:16)
[2019-10-04] MEDS: Metoclopramide HCl 10 MG TAB PO SCH ×2 (09:33→12:25)
[2019-10-04] MEDS: Amlodipine 5 MG TAB PO SCH (09:34)
[2019-10-04] MEDS: Famotidine 20 MG TAB PO SCH (09:34)
[2019-10-04] MEDS: Aspirin Chewable 81 MG TAB PO SCH (09:34)
[2019-10-04] MEDS: Fluconazole 100 MG TAB PO SCH (09:36)
[2019-10-04] MEDS: Ondansetron PF 4 MG/2 ML Vial IVP PRN (09:36)
[2019-10-04] MEDS: cloNIDine 0.1 MG TAB PO SCH (09:36)
[2019-10-04] MEDS: Insulin Glargine 10 UNITS in Pre-Filled Syringe 1 EACH SC SCH ×2 (09:37→21:19)
--- NOTE | 2019-10-04 12:15 | ULT ---
Venous duplex sonogram left upper extremity HISTORY: Left arm pain and edema after PICC placement. FINDINGS: The left internal jugular and subclavian veins were evaluated along with the axillary, brac hial, cephalic, and basilic veins. Good color and spectral Doppler flow and compression. A portion of the basilic vein unable to be visualized due to bandage. PICC is seen in place. IMPRESSION: No sonographic evidence of DVT within the left upper extremity.
--- NOTE | 2019-10-04 13:04 | RAD ---
Abdomen one view HISTORY: Dobbhoff placement. COMPARISON: 10/03/2019. FINDINGS: Visualized bowel gas pattern is nonspecific. The pelvis and right abdomen are incompletely imaged. Looped tubing overlies the lower central mediastinum. Most of the tubing remains just above the level of the diaphragm. The metallic tip of the Dobbhoff feeding catheter overlies the T12 vertebral body. This is suspected to be within a hiatal hernia. IMPRESSION : Enteric catheters, including metallic tip of the Dobbhoff feeding tube, coiled over the lower esophag us, favored to be within the hiatal hernia.
--- NOTE | 2019-10-04 13:51 | RAD ---
PORTABLE CHEST 1 VIEW: Date: 10/04/2019 Time: 1315 hours HISTORY: Possible aspiration pneumonia. Respiratory failure. FINDINGS/IMPRESSION: There is an endotracheal tube with tip senior care between the kosta and clavicular heads. A nasogastric tube is seen with tip directed towards the right in the upper abdomen, likely within the hiatal radha ia and stomach. The heart size is borderline. There are bilateral pleural effusions with increased de nsity in the lower lung [place]. No pneumothoraces seen. There is a left upper extremity PICC line wit h tip in the projection of the SVC. POS: [facility]
--- NOTE | 2019-10-04 15:44 | CON ---
DATE OF CONSULTATION: 10/04/2019 REQUESTING PHYSICIAN: Syeda Pollock MD REASON FOR CONSULTATION: Nausea and vomiting with decreased bowel sounds. HISTORY OF PRESENT ILLNESS: Sharri Mendoza is a 79-year-old woman with a history of diabetes and hypothyroidism as well as chronic GERD, on daily PPI, and history of cholecystectomy. She was admitted to the hospital 5 days ago, presenting with about 3 days of nausea and vomiting. She was found to be dehydrated and in acute kidney injury. She was febrile to 100.3 with a nonproductive cough and was also complaining of some lower abdominal pain. She had leukocytosis and tachycardia, so she was treated for sepsis initially empirically with vancomycin and cefepime. She was started on oral Reglan for suspicion of possible gastroparesis. Blood cultures came back growing out ESBL E coli x2. She was seen by Dr. Rodriguez and switched to meropenem. The thought is that she would probably have a brewing pyelonephritis for some time. A nasogastric tube was placed due to vomiting. She had an abdominal x-ray on 09/30 showing dilation of the small bowel loop in the left abdomen. As of yesterday, her nasogastric tube output was thought to be decreasing significantly, so the nasogastric tube was pulled and she was started on clear liquid diet. Unfortunately, last night she had another vomiting episode followed by oxygen desaturation and it was thought that she likely aspirated. She now has a Dobhoff tube, which appears to be curled up within a hiatal hernia. She complains of ongoing nausea, though she has not had any further vomiting since last night. She denies any abdominal pain, unless she coughs. She does have a productive cough today. It does not appear she has ever undergone upper endoscopy. She denies any history of peptic ulcer disease. She has been passing flatus, but bowel sounds are hypoactive. REVIEW OF SYSTEMS: Full review of systems including constitutional, head, eyes, ears, nose, throat, GI, , cardiovascular, respiratory, musculoskeletal, and neurologic systems are negative except as noted in the HPI. PAST MEDICAL HISTORY: Diabetes type 2, GERD, hypertension, hyperlipidemia, hypothyroidism, right great toe amputation, cholecystectomy. ALLERGIES: PENICILLIN. OUTPATIENT MEDICATIONS: 1. Omeprazole 40 mg daily. 2. Norvasc. 3. Pravastatin. 4. Benicar. 5. Macrobid. 6. Glipizide. 7. Levemir. INPATIENT MEDICATIONS: 1. Norvasc. 2. Aspirin 81 mg daily. 3. IV aztreonam. 4. Lovenox 30 mg subcu daily. 5. Pepcid 20 mg q.a.m. 6. Fluconazole 100 mg daily. 7. Hydralazine 75 mg t.i.d. 8. Insulin sliding scale. 9. Reglan 5 mg p.o. before melas and at bedtime. 10. Zofran p.r.n. 11. Pravachol. 12. Senna. FAMILY HISTORY: Noncontributory. SOCIAL HISTORY: No smoking, alcohol, or drug use. PHYSICAL EXAMINATION: VITAL SIGNS: Temperature 97.3, pulse 71, blood pressure 162/65, 97% oxygen saturation on room air. GENERAL: A 79-year-old woman sitting up in bed in mild distress from shortness of breath and cough. SKIN: No jaundice and no rashes that were palpable. EYES: No scleral icterus. Extraocular movements intact. ENT: Mucous membranes moist. No oral lesions. Dobhoff tube is in place. HEART: Regular rate and rhythm LUNGS: Bibasilar crackles. ABDOMEN: Mild distention. Tympanitic to percussion. Bowel sounds are hypoactive, but present. The abdomen is soft and nontender to palpation, though she complains of nausea. EXTREMITIES: No peripheral edema. VESSELS: Radial pulses 2+ bilaterally. NEUROLOGIC: Cranial nerves 2 through 12 intact bilaterally. LABORATORY STUDIES: WBC down to 8.4, initially was 20.5 on admission; hemoglobin 9.6, stable since admission; platelets 372. Sodium 125, potassium 5.0, BUN 22, creatinine 1.48, glucose 96. Lipase only 14. LFTs all normal with total bilirubin 0.2, alkaline phosphatase 136, AST 24, ALT 12, albumin 2.4. Initial blood cultures are growing out ESBL E coli x2. More recent blood cultures from 09/30/2019 are negative. Urine cultures from admission growing gram-negative rods. Respiratory culture showing presumptive Celia albicans. Influenza swab negative. IMAGING STUDIES: Initial chest x-ray showed no acute processes. CT abdomen and pelvis on admission demonstrated hiatal hernia, stable right ovarian cyst, and stable left adrenal lesion representing hyperplasia versus adenoma. Otherwise, all within normal limits. From earlier today, chest x-ray demonstrates bilateral pleural effusions with increased density in the lower lung ogden. Abdominal x-ray shows Dobhoff tube tip appears to be coiled in her hiatal hernia. ASSESSMENT AND PLAN: 1. Ileus. 2. Hiatal hernia. 3. Possible gastroparesis. 4. Aspiration pneumonia. 5. Escherichia coli sepsis. It appears that the patient has presented with ileus in the context of severe Escherichia coli sepsis. No significant clinical improvement in the ileus despite four days of appropriate antibiotic therapy. Unfortunately, it appears she likely aspirated after her vomiting episode yesterday. At this point, the Dobhoff tube is in place and there has been no further vomiting today. I would hold off on any enteric feeds today, and if nausea worsens or vomiting recurs, attempt suction through the Dobhoff tube. convert her Reglan to 10 mg IV q.8 hours. Otherwise, continue current supportive care. I do not think there would be anything to be gained by upper endoscopy at this time. Thank you for the consultation. Please call anytime with questions or concerns. Job ID: [id number]
[2019-10-04] MEDS: Metoclopramide HCl 10 MG/2 ML VIAL IVP SCH ×2 (15:59→23:52)
--- NOTE | 2019-10-04 16:08 | PDOC.HOSPP ---
- Subjective Encounter Date: 10/04/19 Encounter Time: 11:40 Subjective: Shila left arm swollen, nauseated. consulted GI may need dubhoff as pt has hiatal hernia - may not be able to get into stomach properly. Doppler for LUE. - Objective Vital Signs & Weight: Vital Signs (12 hours) Temp Pulse Pulse Pulse BP BP BP 10/04/19 15:26 97.0 F L 10/04/19 14:13 71 162/65 H 10/04/19 13:55 72 78 172/76 H 180/79 H 10/04/19 11:22 97.3 F L 10/04/19 09:36 159/68 H 10/04/19 09:34 72 159/68 H 10/04/19 09:31 86 159/68 H 10/04/19 08:00 10/04/19 07:19 97.0 F L Pulse Ox Pulse Ox Pulse Ox 10/04/19 15:26 10/04/19 14:13 10/04/19 13:55 96 95 10/04/19 11:22 10/04/19 09:36 10/04/19 09:34 10/04/19 09:31 10/04/19 08:00 96 10/04/19 07:19 Weight Admit Weight 167 lb 8 oz Weight 167 lb 8 oz Most Recent Monitor Data Heart Rate from ECG 74 NIBP 159/113 NIBP BP-Mean 128 Respiration from ECG 27 SpO2 97 I&O: 10/03/19 10/04/19 10/05/19 06:59 06:59 06:59 Intake Total 1154 2915 Output Total 450 800 Balance 704 2115 Result Diagrams: 10/03/19 09:01 10/04/19 04:07 Additional Labs: Accuchecks 10/04/19 10/04/19 10/04/19 15:09 12:19 09:08 POC Glucose 89 96 95 10/04/19 10/04/19 10/03/19 04:49 00:08 20:39 POC Glucose 93 136 H 89 10/03/19 16:28 POC Glucose 137 H Hospitalist ROS - Medication Medications: Active Medications Generic Name Dose Route Start Last Admin Trade Name Freq PRN Reason Stop Dose Admin Amlodipine Besylate 5 mg 09/30/19 09:00 10/04/19 09:34 Norvasc PO 5 mg DAILY CLARISA Administration Lipase/Protease/Amylase 1 cap 10/02/19 23:57 10/03/19 00:08 Mack [place] [id number] FS 1 cap .PER PROTOCOL PRN Administration TUBE OCCLUSION PROTOCOL Aspirin 81 mg 09/30/19 09:00 10/04/19 09:34 Aspirin Chewable PO 81 mg DAILY CLARISA Administration Enoxaparin Sodium 30 mg 09/30/19 09:00 10/04/19 09:31 Lovenox SC 30 mg 0900 CLARISA Administration Famotidine 20 mg 09/30/19 09:00 10/04/19 09:34 Pepcid PO 20 mg QAM CLARISA Administration Fluconazole 100 mg 09/30/19 09:00 10/04/19 09:36 Diflucan PO 100 mg DAILY CLARISA Administration Hydralazine HCl 75 mg 10/04/19 15:00 10/04/19 14:13 Apresoline PO 75 mg TID CLARISA Administration Insulin Glargine 10 units/ 0.1 mls @ 0 mls/hr 09/30/19 21:00 10/04/19 09:37 Miscellaneous Medication SC Not Given BID [facility] Meropenem 1 gm/ Device 50 mls @ 100 mls/hr 10/01/19 04:00 10/04/19 15:57 IVPB 50 mls 0400,1600 CLARISA Administration Aztreonam 1 gm/ Sodium 100 mls @ 100 mls/hr 10/01/19 15:00 10/04/19 14:15 Chloride IVPB 100 mls 0300,1500 CLARISA Administration Sodium Bicarbonate 150 meq/ 1,150 mls @ 75 mls/hr 10/03/19 16:45 10/04/19 09: 31 Dextrose/Water IV 1,150 mls .[id number] CLARISA Administration Insulin Human Lispro 0 units 09/30/19 14:58 10/01/19 12:26 Humalog SC 6 units .MODERATE SLIDING SC PRN Administration Moderate Correctional Scale Metoclopramide HCl 10 mg 10/04/19 15:30 10/04/19 15:59 Reglan IVP 10 mg Q8H CLARISA Administration Ondansetron HCl 4 mg 09/29/19 22:09 10/04/19 09:36 Zofran IVP 4 mg Q6H PRN Administration Nausea/Vomiting Pravastatin Sodium 20 mg 09/30/19 21:00 10/03/19 20:49 Pravachol PO 20 mg QPM CLARISA Administration Senna/Docusate Sodium 2 tab 09/30/19 09:00 10/04/19 09:33 Senokot S PO 2 tab BID CLARISA Administration Sodium Bicarbonate 650 mg 10/02/19 23:57 10/03/19 00:08 Bicarbonate, Sodium PER TUBE 650 mg .PER PROTOCOL PRN Administration ENTERAL TUBE OCCLUSION Sodium Chloride 10 ml 09/30/19 09:00 10/04/19 09:37 Flush - Normal Saline IVF 10 ml Q12HR CLARISA Administration Sodium Chloride 0 ml 10/01/19 01:10 10/01/19 01:32 [place] Nasal [place] 0.65% EA NARE 2 spray TID PRN Administration Nasal Congestion - Exam General Appearance: awake alert Eye: PERRL ENT: normocephalic atraumatic Neck: supple Respiratory: CTAB, normal chest expansion Gastrointestinal: soft Hosp A/P - Plan suspected sepsis - hypovolumic iwthout shock Sepsis likely also d/t UTI/ bacteremia Dehydration Hypovolumic hyponateremia Hypoglycemia with hx of DM2 Abn troponin d/t sepsis, type II. --> plateaued. ESBL E.coli bcateremia -u cx - neg. -flu neg -repeating the blood shanta / -wbcs trending down. blood shanta no growth x 48hrs---> vanc. ---> dc'd. -on vanc + cefepime-----------> merum -pharm c/s -IV NS Recurrent UTI -last one in july -ineffective tx in the past w.. macrobid. -started on merum for 2 weeks- --PICC line in place. -appreciate ID help. Ileus - NG tube put out over 500 ml last night and this PM, 200 ml. -will clamp and trial of CLD.-->repeat KUB - coiled in hiatal hernia --will remove and start CLD hyponateremia on NS. goal 6-8 meq/23hrs, renal consult placed. Hypokalemia----------------> improved Hypocalcemia-------> corrected Hypomagnesemia-----> corrected even though u shanta < 5000 colonies of GNR, blood shanta positive wait another 24 hrs for repeat shanta to be negative bef.. de-escalating the abx. Echo - mitral v calcification, no marvin vegetation, nl EF. full code 25th GI consulted if this NGT not working, dubhoff is an option. LEONA edema/swelling after PICC insertion -- neg for DVT HTN off cloinidine up on hydralazine.
--- NOTE | 2019-10-04 16:59 | PRG ---
DATE OF SERVICE: 10/04/2019 SUBJECTIVE: The patient is seen and examined, with no new complaint noted with the following vital signs. OBJECTIVE: VITAL SIGNS: Afebrile, temperature 97, blood pressure 162/65, respiratory rate of 19, and O2 saturation of 97%. HEENT: Unremarkable. CARDIOVASCULAR SYSTEM: First and second heart sounds were heard. RESPIRATORY SYSTEM: Clear to auscultation. DIGESTIVE SYSTEM: Revealed a benign abdomen. Positive bowel sounds. EXTREMITIES: No peripheral edema. SKIN: No new gross rash. LYMPHATICS: No peripheral lymphadenopathy. LABORATORY INVESTIGATION: Showed a sodium of 125, bicarb of 20, BUN of 22 with creatinine of 1.48. IMPRESSION: 1. Hyponatremia, much improved. 2. Hypertension, suboptimally controlled. 3. Metabolic acidosis, much improved. 4. Chronic kidney disease. PLAN: 1. We will continue current renal supportive measures. 2. Continue to monitor the sodium level. 3. . Job ID: [id number]
[2019-10-04] MEDS ORDERED: Furosemide 40 MG/4 ML VIAL SLOW IVP SCH (17:00)
--- NOTE | 2019-10-04 17:20 | CON ---
DATE OF CONSULTATION: 10/04/2019 SERVICE: Pulmonary Medicine. REASON FOR CONSULTATION: IMCU patient. HISTORY OF PRESENT ILLNESS: The patient is a 79-year-old female with past medical history significant for chronic kidney disease. She presented to the hospital on September 29, 2019, with complaints of severe dehydration with intractable nausea and vomiting for a period of 3 days. She is also having some belly discomfort. She had some hyponatremia. She was placed in the hospital, and started on some IV fluids. On arrival, she had a low-grade temperature. That being said, she reports having a little bit of increasing shortness of breath over the last 4 or 5 days. Her nausea and vomiting have improved. She is actually hungry, but because of oropharyngeal dysphagia, an NG tube has been placed, and enteral feeds have been initiated. The patient is okay to swallow pills, however. She has been brought down to the ICU and a consult was placed for me to see her for possibility of aspiration-related pneumonias. Otherwise, she has no specific complaints. She is coughing and bringing up significant amounts of white phlegm. She is now getting a red color to it. PAST MEDICAL HISTORY: 1. Type 2 diabetes mellitus. 2. Hypothyroidism. 3. Dyslipidemia. 4. Hypertension. 5. Gastroparesis, suspected. PAST SURGICAL HISTORY: 1. Cholecystectomy. 2. Right great toe amputation. ALLERGIES: PENICILLIN. MEDICATIONS: List of the inpatient medications was reviewed. Multiple updates were made at this time. SOCIAL HISTORY: Negative for alcohol, tobacco, or illicit drug use. FAMILY HISTORY: Noncontributory. REVIEW OF SYSTEMS: General, head, ears, eyes, nose, throat, cardiovascular, respiratory, GI, , musculoskeletal, neurologic, and skin is negative except as mentioned in the HPI. PHYSICAL EXAMINATION: VITAL SIGNS: Afebrile with a low temperature of 96.7; pulse 71; blood pressure 162/65; respirations 27; and saturation 97%, currently on room air. GENERAL: The patient is awake and alert, in no apparent distress. LUNGS: Extensive crackling and rhonchi are present. No prolonged expiratory phase or wheezing is appreciated. HEART: Normal rate, regular. ABDOMEN: Soft, nontender, and nondistended. Bowel sounds are positive. MUSCULOSKELETAL: No cyanosis or clubbing. There is diffuse pitting throughout. NEUROLOGIC: Grossly nonfocal. LABORATORY DATA: WBC 8.4, hemoglobin 9.6, and platelets 372,000. Creatinine is downtrending to 1.48. This is basically stable compared to presentation. Sodium 125 has improved significantly. Calcium 7.9. Urinalysis is unremarkable. Vancomycin trough 14.1. Sputum is growing Celia albicans. This was moderate in growth. That being said, no white blood cells were seen. Gram-negative eber was growing in the urine and the blood was positive for E coli, which is a fairly resistant organism requiring meropenem or piperacillin to treat appropriately. IMAGING DATA: 1. Chest x-ray demonstrates no acute cardiopulmonary abnormality other than some cephalization of the lung and blunting of bilateral costophrenic angles. There is an underpenetrated film. There is significant soft tissue attenuation present. 2. Abdominal x-ray demonstrates coiling of the small-bore feeding tube in the distal esophagus. 3. Ultrasound demonstrates no evidence of a DVT. 4. Echocardiogram demonstrates a normal ejection fraction. There is impaired relaxation consistent with diastolic dysfunction, which is 1/[address] of the abdomen and pelvis demonstrates interstitial fullness throughout bilateral lung ogden, possibly consistent with interstitial edema. A moderate sized hiatal hernia is present. I will see any overt consolidating lesion present in the bibasilar region. The rest of the lungs could not be visualized. ASSESSMENT: 1. Chronic kidney disease. 2. Acute on chronic diastolic heart failure. 3. Bacteremia secondary to olivera-resistant Escherichia coli. 4. Urinary tract infection. 5. Abnormal sputum, growing Celia. DISCUSSION AND PLAN: The patient is cleared her inflammatory profile beautifully. At this point, she is significantly volume up. As such, I will introduce a dose of Lasix on a daily basis. IV fluids will be interrupted. I will switch her bicarb over to p.o. as she can tolerate pills. Antifungal medication can be continued for a total duration of 7 days directed at this abnormal sputum. Treatment of bacteremia per Primary Care. The aztreonam is unlikely adding anything to the meropenem. Cough suppressions will be completely interrupted. Pulmonary/ Critical Care will continue to follow along. 70 minutes have been devoted to this patient in various activities. I personally reviewed all imaging studies and laboratory data noted within this document. For fifty percent of this time, I was interacting with the patient at the bedside or coordinating care with the care team. For the remainder of the time I was immediately available to the patient in the hospital unit. Job ID: [id number] MTDD
[2019-10-04] MEDS: Pravastatin Sodium 20 MG TAB PO SCH (21:19)
[2019-10-04] MEDS: Artificial Tears 18 DROP/0.9 ML EA EYE SCH (21:19)
[2019-10-04] MEDS: Latanoprost 0.005% Ophth Soln 2.5 ml Bottle L EYE SCH (21:20)
[2019-10-04] MEDS: DorzolamidE/Timolol 2%/0.5% Ophth Soln 10 ml Bottle L EYE SCH (21:21)
[2019-10-04] MEDS: Sodium Bicarbonate Tab 325 MG TAB PO SCH (21:22)
[2019-10-04] MEDS: Tetrahydrozoline 0.05% OPTH 15 ML BOT L EYE SCH (21:24)
[2019-10-05] MEDS: Ondansetron PF 4 MG/2 ML Vial IVP PRN (02:16)
[2019-10-05 02:54] LABS: Actual Bicarbonate (HCO3a) 21.9 mEq/L (22-28); Base Excess (BEa) -4.9 mEq/L (-2.0 to +3.0); CO2 Tension 47.5 mmHg (35.0-45.0); Calcium, Ionized 1.18 mmol/L (1.12-1.30); Hemoglobin (Hb) 11.8 g/dL (12.0-16.0); O2 Tension (PaO2) 60.6 mmHg (> 70.0); Potassium - ABG Lab 4.74 mmol/L (3.70-5.30); pH, Arterial 7.28 (7.35-7.45)
[2019-10-05 02:55] LABS: ALV-art Gradient 79.665 (0-20); Puncture Site RR
[2019-10-05] MEDS: Aztreonam 1 GM in Sodium Chloride 0.9% 100 ML IVPB SCH ×2 (03:17→15:22)
[2019-10-05] MEDS: Furosemide 40 MG/4 ML VIAL SLOW IVP SCH ×2 (03:18→14:03)
[2019-10-05] MEDS: MEROPENEM 1 GM/50 ML 1 GM in Premix Bag 1 BAG IVPB SCH ×2 (04:36→16:27)
[2019-10-05 05:13] LABS: Phosphorus 4.7 mg/dL (2.3-4.7)
[2019-10-05 05:18] LABS: Anion Gap 14 mmol/L (10-20); BUN (Urea Nitrogen) 27 mg/dL (9.8-20.1); Calc. Creatinine Clearance 32 mL/min (70-130); Calcium 8.1 mg/dL (7.8-10.44); Carbon Dioxide 19 mmol/L (23-31); Chloride 99 mmol/L (98-107); Estimated GFR-MDRD 29; Glucose 96 mg/dL (83-110); Magnesium 1.7 mg/dL (1.6-2.6); Sodium 127 mmol/L (136-145)
--- NOTE | 2019-10-05 07:50 | RAD ---
1 VIEW CHEST: Date: 10/05/2019 HISTORY: Shortness of breath, aspiration pneumonia. COMPARISON: 07/16/2017. FINDINGS: There is a small left pleural effusion. Increased density is also seen at the right lung base likely related to moderate size right pleural effusion. Increased perihilar interstitial densities may be re lated to element of mild pulmonary edema, or infectious process. The cardiac silhouette is magnified by projection. A left-sided PICC line is noted in place with tip overlying the expected location of t he SVC. A Dobbhoff feeding tube is noted in place which is coiled overlying the region of the lower m ediastinum and epigastric region. A hiatal hernia was seen on prior CT abdomen on 09/29/2019, and the Dobbhoff feeding tube is likely coiled within the hiatal hernia. Vascular calcifications are seen in the thoracic aorta. IMPRESSION: 1. Moderate right and small left pleural effusions. Superimposed pneumonia at either lung base is a possibility. 2. Mild increase in perihilar interstitial densities which could be related to pulmonary edema versu s infectious process. 3. Dobbhoff feeding tube noted in place which is coiled overlying the lower mediastinum, and most li radha coiled within a hiatal hernia which was seen on a prior CT examination. POS: BRIAN
[2019-10-05] MEDS: Amlodipine 5 MG TAB PO SCH (09:30)
[2019-10-05] MEDS: Fluconazole 100 MG TAB PO SCH (09:31)
[2019-10-05] MEDS: Artificial Tears 18 DROP/0.9 ML EA EYE SCH ×2 (09:31→21:02)
[2019-10-05] MEDS: Enoxaparin Sodium 30 MG/0.3 ML SYRINGE SC SCH (09:31)
[2019-10-05] MEDS: Sodium Bicarbonate Tab 325 MG TAB PO SCH ×2 (09:32→21:00)
[2019-10-05] MEDS: Metoclopramide HCl 10 MG/2 ML VIAL IVP SCH ×2 (09:32→15:22)
[2019-10-05] MEDS: Senokot S 8.6-50 MG TAB PO SCH ×2 (09:33→21:01)
[2019-10-05] MEDS: Aspirin Chewable 81 MG TAB PO SCH (09:33)
[2019-10-05] MEDS: Famotidine 20 MG TAB PO SCH (09:33)
[2019-10-05] MEDS: hydrALAZINE 25 MG TAB PO SCH ×3 (09:33→20:59)
[2019-10-05] MEDS: Insulin Glargine 10 UNITS in Pre-Filled Syringe 1 EACH SC SCH ×2 (09:34→21:07)
[2019-10-05] MEDS: DorzolamidE/Timolol 2%/0.5% Ophth Soln 10 ml Bottle L EYE SCH ×2 (09:36→21:03)
[2019-10-05] MEDS: Latanoprost 0.005% Ophth Soln 2.5 ml Bottle L EYE SCH ×2 (09:36→21:05)
[2019-10-05] MEDS: Tetrahydrozoline 0.05% OPTH 15 ML BOT L EYE SCH ×2 (09:37→21:06)
--- NOTE | 2019-10-05 11:45 | RAD ---
EXAM: XR Ba Swallow W/Speech Therap PROVIDED CLINICAL HISTORY: Dysphagia, unspecified. Feeding difficulties. COMPARISON: None FINDINGS: This examination was performed in conjunction with speech pathology. The patient was administered mary beverly consistencies of barium during the exam. The patient demonstrates premature spill of contrast into the vallecula prior to initiation of the swallowing mechanism. There is delayed formation of the bolus into the posterior pharynx. Patient demonstrated several episodes of penetration with multiple consistencies during the exam. No marvin aspiration was appreciated during the study. IMPRESSION: Multiple episodes of penetration during the exam. No obvious aspiration was seen.
--- NOTE | 2019-10-05 12:59 | PRG ---
DATE OF SERVICE: 10/05/2019 SERVICE: Pulmonary Medicine. INTERVAL HISTORY: The patient had an aspiration episode yesterday late in the evening. She looked scary for short period of time, and was given more oxygen and BiPAP. Ultimately, she settled down comfortably and this morning, she is back on room air. Breathing comfortably without any complaints. She is requesting the TV remote. Otherwise, there are no overnight events. PHYSICAL EXAMINATION: VITAL SIGNS: Afebrile; pulse 91; blood pressure 138/51; respirations 23; and saturation 99%, currently on room air. GENERAL: The patient is awake and alert, in no apparent distress. LUNGS: Decent air entry. No prolonged expiratory phase or wheezing is appreciated. Dependent crackles are noted. HEART: Normal rate, regular. ABDOMEN: Soft, nontender, and nondistended. Bowel sounds are positive. MUSCULOSKELETAL: No cyanosis or clubbing. There is diffuse 2+ pitting throughout, which is little bit more in the left upper extremity. GENITOURINARY: Martinez catheter in place. LABORATORY DATA: WBC 8.4, hemoglobin 9.6, and platelets 372,000. PH of 7.28, pCO2 of 47, and pO2 of 60. Bicarb 19 and gently downtrending, creatinine 1.72, has up-trended slightly. Magnesium 1.7, phosphorus 4.7. Sodium has improved to 127. Vancomycin 14.1. Sputum is growing Celia albicans. Blood cultures are growing gram-negative rods, which are fairly resistant. IMAGIN. Modified barium swallow demonstrates multiple episodes of penetration without overt aspiration identified. 2. Chest x-ray demonstrates bilateral pleural effusions, greater on the right. Infiltrate in the base cannot be excluded. Extensive reticular and nodular opacifications with pulmonary vascular congestion are all suggestive of volume overload. Dobbhoff tube is coiled in the lower esophagus. ASSESSMENT: 1. Acute hypoxic respiratory failure, once again resolved. 2. Chronic kidney disease. 3. Acute on chronic diastolic heart failure. 4. Bacteremia secondary to olivera resistant Escherichia coli. 5. Severe sepsis, improving. 6. Urinary tract infection. 7. Abnormal sputum, growing Celia with very few white blood cells. DISCUSSION AND PLAN: Antifungal medication can be interrupted after 7 days. The empiric antibiotics will otherwise be continued. We will continue to diurese her through time, and provide her with the bicarb by p.o. We will try to minimize fluids as she has significant anasarca. A thoracentesis could be considered if she develops increasing respiratory failure. Critical Care will follow. Job ID: [id number]
--- NOTE | 2019-10-05 14:15 | PRG ---
DATE OF SERVICE: 10/05/2019 SUBJECTIVE: Ms. Mendoza had one small volume emesis last night. She currently reports no abdominal pain. She has swelling in her arms with anasarca. OBJECTIVE: VITAL SIGNS: Temperature 96.5, blood pressure 125/60, and pulse 82. GENERAL: She is in no acute distress. Alert and awake. LUNGS: Clear to auscultation anteriorly. HEART: Regular rate and rhythm without murmur. ABDOMEN: Soft, nontender, and nondistended. Bowel sounds are present. EXTREMITIES: 1+ pitting upper and lower extremity edema. LABORATORY DATA: White blood cell count 8.4, hemoglobin 9.6, platelets 372, and creatinine 1.72. IMPRESSION: 1. Ileus related to Escherichia coli sepsis from pyelonephritis. She has had vomiting with suspected aspiration pneumonia as well. She had small volume emesis last night. 2. Aspiration pneumonia. 3. Oropharyngeal dysphagia. I removed the Dobhoff tube this morning, because it was curled in her hiatal hernia. She underwent swallow study today that showed she was safe for modified textures. She was started on a solid diet which she has tolerated well without vomiting so far. RECOMMENDATIONS: 1. If she starts vomiting again, then place an 18 gauge NG tube to suction, past the hiatal hernia in to the subdiaphragmatic stomach. If output is not significant, then barium upper GI could be considered. Job ID: [id number] MTDD
--- NOTE | 2019-10-05 14:48 | PDOC.HOSPP ---
- Subjective Encounter Date: 10/05/19 Encounter Time: 11:40 Subjective: p feels slightly better, off NGT - MBS done. - Objective Vital Signs & Weight: Vital Signs (12 hours) Temp Pulse Pulse BP BP Pulse Ox 10/05/19 13:34 81 125/65 10/05/19 12:00 97 10/05/19 09:33 91 138/51 L 10/05/19 09:30 91 138/51 L 10/05/19 08:00 96 10/05/19 07:26 96.5 F L 10/05/19 04:00 96.8 F L 100 10/05/19 03:33 74 Weight Admit Weight 167 lb 8 oz Weight 167 lb 8 oz Most Recent Monitor Data Heart Rate from ECG 82 NIBP 125/60 NIBP BP-Mean 81 Respiration from ECG 25 SpO2 97 I&O: 10/04/19 10/05/19 10/06/19 06:59 06:59 06:59 Intake Total 2915 794 Output Total 800 625 Balance 2115 169 Result Diagrams: 10/03/19 09:01 10/05/19 04:42 Additional Labs: Accuchecks 10/05/19 10/05/19 10/05/19 08:30 04:02 00:49 POC Glucose 98 96 104 10/04/19 10/04/19 10/04/19 20:42 16:13 15:09 POC Glucose 101 108 89 Hospitalist ROS - Medication Medications: Active Medications Generic Name Dose Route Start Last Admin Trade Name Freq PRN Reason Stop Dose Admin Amlodipine Besylate 5 mg 09/30/19 09:00 10/05/19 09:30 Norvasc PO 5 mg DAILY CLARISA Administration Lipase/Protease/Amylase 1 cap 10/02/19 23:57 10/03/19 00:08 [place] [id number] FS 1 cap .PER PROTOCOL PRN Administration TUBE OCCLUSION PROTOCOL Artificial Tears 1 drop 10/04/19 21:00 10/05/19 09:31 Tears Naturale EA EYE 1 drop BID CLARISA Administration Aspirin 81 mg 09/30/19 09:00 10/05/19 09:33 Aspirin Chewable PO 81 mg DAILY CLARISA Administration Dorzolamide/Timolol 10 drop 10/04/19 21:00 10/05/19 09:36 Cosopt 2-0.5% Ophth Soln L EYE Not Given BID CLARISA Enoxaparin Sodium 30 mg 09/30/19 09:00 10/05/19 09:31 Lovenox SC 30 mg 0900 CLARISA Administration Famotidine 20 mg 09/30/19 09:00 10/05/19 09:33 Pepcid PO 20 mg QAM CLARISA Administration Fluconazole 100 mg 09/30/19 09:00 10/05/19 09:31 Diflucan PO 100 mg DAILY CLARISA Administration Furosemide 40 mg 10/05/19 06:00 10/05/19 14:03 Lasix SLOW IVP 40 mg 0600,1400 CLARISA Administration Hydralazine HCl 75 mg 10/04/19 15:00 10/05/19 09:33 Apresoline PO 75 mg TID CLARISA Administration Insulin Glargine 10 units/ 0.1 mls @ 0 mls/hr 09/30/19 21:00 10/05/19 09:34 Miscellaneous Medication SC Not Given BID CLARISA Meropenem 1 gm/ Device 50 mls @ 100 mls/hr 10/01/19 04:00 10/05/19 04:36 IVPB 50 mls 0400,1600 CLARISA Administration Aztreonam 1 gm/ Sodium 100 mls @ 100 mls/hr 10/01/19 15:00 10/05/19 03:17 Chloride IVPB 100 mls 0300,1500 CLARISA Administration Magnesium Sulfate 1 gm/ Sodium 102 mls @ 100 mls/hr 10/05/19 13:00 10/05/19 14:02 Chloride IVPB 10/05/19 15:00 102 mls NOW CLARISA Administration Insulin Human Lispro 0 units 09/30/19 14:58 10/01/19 12:26 Humalog SC 6 units .MODERATE SLIDING SC PRN Administration Moderate Correctional Scale Latanoprost 1 drop 10/04/19 21:00 10/05/19 09:36 Xalatan 0.005% Ophth Soln L EYE 1 drop BID CLARISA Administration Metoclopramide HCl 10 mg 10/04/19 15:30 10/05/19 09:32 Reglan IVP 10 mg Q8H CLARISA Administration Ondansetron HCl 4 mg 09/29/19 22:09 10/05/19 02:16 Zofran IVP 4 mg Q6H PRN Administration Nausea/Vomiting Pravastatin Sodium 20 mg 09/30/19 21:00 10/04/19 21:19 Pravachol PO 20 mg QPM CLARISA Administration Senna/Docusate Sodium 2 tab 09/30/19 09:00 10/05/19 09:33 Senokot S PO 2 tab BID CLARISA Administration Sodium Bicarbonate 650 mg 10/02/19 23:57 10/03/19 00:08 Bicarbonate, Sodium PER TUBE 650 mg .PER PROTOCOL PRN Administration ENTERAL TUBE OCCLUSION Sodium Bicarbonate 650 mg 10/04/19 21:00 10/05/19 09:32 Bicarbonate, Sodium PO 650 mg BID CLARISA Administration Sodium Chloride 10 ml 09/30/19 09:00 10/05/19 09:32 Flush - Normal Saline IVF 10 ml Q12HR CLARISA Administration Sodium Chloride 0 ml 10/01/19 01:10 10/01/19 01:32 [place] Nasal [place] 0.65% EA NARE 2 spray TID PRN Administration Nasal Congestion Tetrahydrozoline HCl 1 drop 10/04/19 21:00 10/05/19 09:37 Visine Ac 0.05% Opth L EYE 1 drop BID CLARISA Administration - Exam General Appearance: NAD, awake alert Eye: PERRL ENT: normocephalic atraumatic Neck: supple Heart: RRR Respiratory: CTAB, normal chest expansion Gastrointestinal: soft, diminished bowl sounds Hosp A/P - Plan suspected sepsis - hypovolumic iwthout shock Sepsis likely also d/t UTI/ bacteremia Dehydration Hypovolumic hyponateremia Hypoglycemia with hx of DM2 Abn troponin d/t sepsis, type II. --> plateaued. ESBL E.coli bcateremia -u cx - neg. -flu neg -repeating the blood shanta / -wbcs trending down. blood shanta no growth x 48hrs---> vanc. ---> dc'd. -on vanc + cefepime-----------> merum -pharm c/s -IV NS Recurrent UTI -last one in july -ineffective tx in the past w.. macrobid. -started on merum for 2 weeks-- --PICC line in place. -appreciate ID help. Ileus - NG tube put out over 500 ml last night and this PM, 200 ml. -will clamp and trial of CLD.-->repeat KUB - coiled in hiatal hernia --will remove and start CLD hyponateremia on NS. goal 6-8 meq/23hrs, renal consult placed. Hypokalemia----------------> improved Hypocalcemia-------> corrected Hypomagnesemia-----> corrected even though u shanta < 5000 colonies of GNR, blood shanta positive wait another 24 hrs for repeat shanta to be negative bef.. de-escalating the abx. Echo - mitral v calcification, no marvin vegetation, nl EF. full code 25th GI consulted if this NGT not working, dubhoff is an option. LEONA edema/swelling after PICC insertion -- neg for DVT HTN off cloinidine up on hydralazine. 26th MBS --- puree/nectar BP is better today. will start ampulation post acute care PT c/s.
--- NOTE | 2019-10-05 15:29 | EKG ---
Test Reason : Blood Pressure : / mmHG Vent. Rate : 107 BPM Atrial Rate : 107 BPM P-R Int : 152 ms QRS Dur : 082 ms QT Int : 326 ms P-R-T Axes : 027 059 070 degrees QTc Int : 435 ms Sinus tachycardia Otherwise normal ECG Confirmed by CHUYITA MARIA, MARLENY ([id number]), make up editor GISELL GUERRERO ([id number]) on 10/05/2019 3:29:04 PM Referred By: Confirmed By:MARLENY BOOGIE MD
[2019-10-05] MEDS ORDERED: Sterile Water 10 ML VIAL IVP SCH (16:00)
[2019-10-05] MEDS ORDERED: Activase 2 MG VIAL CATH SCH (16:00)
[2019-10-05] MEDS: HumaLOG 300 UNITS/3 ML VIAL SC PRN (16:40)
--- NOTE | 2019-10-05 19:43 | PRG ---
DATE OF SERVICE: 10/05/2019 SUBJECTIVE: The patient noted with the following vital signs. OBJECTIVE: VITAL SIGNS: Afebrile, temperature 96.8, pulse 91, blood pressure 138/51, and O2 saturations of 96%. HEENT: Unremarkable. CARDIOVASCULAR SYSTEM: First and second heart sounds were heard. RESPIRATORY SYSTEM: Clear to auscultation. DIGESTIVE SYSTEM: Revealed a benign abdomen. EXTREMITIES: No peripheral edema. SKIN: No new gross rash. LYMPHATICS: No peripheral lymphadenopathy. IMPRESSION: 1. Hyponatremia, which is much improved. 2. Hypertension. 3. Metabolic acidosis, improved. 4. Chronic kidney disease. PLAN: 1. Continue current renal supportive measures. 2. Further management will be dependent on the clinical course. Job ID: [id number]
[2019-10-05] MEDS: Pravastatin Sodium 20 MG TAB PO SCH (21:01)
[2019-10-06] MEDS: Metoclopramide HCl 10 MG/2 ML VIAL IVP SCH ×4 (00:14→23:42)
[2019-10-06] MEDS: Aztreonam 1 GM in Sodium Chloride 0.9% 100 ML IVPB SCH (03:14)
[2019-10-06] MEDS: MEROPENEM 1 GM/50 ML 1 GM in Premix Bag 1 BAG IVPB SCH ×2 (04:28→15:49)
[2019-10-06 05:23] LABS: Anion Gap 15 mmol/L (10-20); BUN (Urea Nitrogen) 35 mg/dL (9.8-20.1); Calc. Creatinine Clearance 26 mL/min (70-130); Calcium 8.1 mg/dL (7.8-10.44); Carbon Dioxide 20 mmol/L (23-31); Chloride 101 mmol/L (98-107); Estimated GFR-MDRD 23; Glucose 172 mg/dL (83-110); Potassium 4.7 mmol/L (3.5-5.1); Sodium 131 mmol/L (136-145)
[2019-10-06] MEDS: Furosemide 40 MG/4 ML VIAL SLOW IVP SCH ×2 (05:37→14:45)
[2019-10-06] MEDS: Amlodipine 5 MG TAB PO SCH (07:45)
[2019-10-06] MEDS: Aspirin Chewable 81 MG TAB PO SCH (07:45)
[2019-10-06] MEDS: Famotidine 20 MG TAB PO SCH (07:46)
[2019-10-06] MEDS: Fluconazole 100 MG TAB PO SCH (07:46)
[2019-10-06] MEDS: Senokot S 8.6-50 MG TAB PO SCH ×2 (07:47→21:22)
[2019-10-06] MEDS: hydrALAZINE 25 MG TAB PO SCH (07:47)
[2019-10-06] MEDS: Sodium Bicarbonate Tab 325 MG TAB PO SCH ×2 (07:48→21:22)
[2019-10-06] MEDS: Insulin Glargine 10 UNITS in Pre-Filled Syringe 1 EACH SC SCH ×2 (07:50→21:22)
[2019-10-06] MEDS: Artificial Tears 18 DROP/0.9 ML EA EYE SCH ×2 (10:24→21:22)
[2019-10-06] MEDS: DorzolamidE/Timolol 2%/0.5% Ophth Soln 10 ml Bottle L EYE SCH ×2 (10:24→21:35)
[2019-10-06] MEDS: Tetrahydrozoline 0.05% OPTH 15 ML BOT L EYE SCH ×2 (10:25→21:45)
[2019-10-06] MEDS: Enoxaparin Sodium 30 MG/0.3 ML SYRINGE SC SCH (10:25)
--- NOTE | 2019-10-06 11:44 | RAD ---
XR Abdomen 1 View/KUB HISTORY: New nasogastric tube placement COMPARISON: 10/04/2019 FINDINGS: There is been interval removal of the feeding tube and placement of a nasogastric tube sinc e the previous study of 10/04/2019. Tip of the nasogastric tube is in the gastric fundus. There is contrast in the GE junction and colon.
--- NOTE | 2019-10-06 12:21 | PRG ---
DATE OF SERVICE: 10/06/2019 SUBJECTIVE: Ms. Mendoza has had more troubled breathing today. She has been attempted with BiPAP, but she just keeps taking it off. She did tolerate some pureed diet yesterday, but then apparently threw up some night and has been coughing and gurgling this morning. OBJECTIVE: VITAL SIGNS: Temperature 97.5, blood pressure 147/78, and pulse 74. GENERAL: She is in no acute distress, alert and awake, communicative. LUNGS: Her lungs have crackles and coarse breath sounds diffusely. HEART: Regular rate and rhythm. ABDOMEN: Soft, nontender, and nondistended. Bowel sounds are present. EXTREMITIES: 1+ lower and upper extremity edema. LABORATORY DATA: White blood cell count 8.4, hemoglobin 9.6, and platelets 372. Creatinine 2.07, which is rising over the last couple of days. IMPRESSION: 1. Ileus with recent Escherichia coli sepsis and pyelonephritis. 2. Oropharyngeal dysphagia. She apparently passed her swallow study yesterday, but again is declined today after re-attempt at oral diet yesterday afternoon. 3. Aspiration pneumonia. 4. Hypoxemia, currently improved. RECOMMENDATIONS: 1. NG tube placement. If we get significant fluid output from the NG tube indicating a gastric outlet obstruction or more distal obstruction, then we will leave this to suction. If there is no significant output, then consider a Gastrografin or barium contrast upper GI to rule out a gastric outlet obstruction. 2. It is possible that the NG tube after replacement is just curled in the hiatal hernia again, in which case we will need to continue to try to place this more distally. Job ID: [id number]
[2019-10-06] MEDS: Ondansetron PF 4 MG/2 ML Vial IVP PRN (13:00)
[2019-10-06] MEDS ORDERED: Norepinephrine 8 MG/0.9% NS 250 ML IVPB PRN (14:15)
[2019-10-06] MEDS ORDERED: Ventilator Sedation Protocol 1 EACH FS SCH (14:15)
[2019-10-06] MEDS ORDERED: SYSTANE 3.5 GM TUBE EA EYE PRN (14:15)
--- NOTE | 2019-10-06 14:17 | RAD ---
XR Chest 1 View Portable HISTORY: Respiratory failure COMPARISON: Previous day FINDINGS: There is interval placement of a endotracheal tube with tip in the region of the right lowe r lobe bronchus. The feeding tube has been removed and nasogastric tube has been placed. Remainder the exam is otherwise stable. Discussed over the telephone with Dr. Jaspal Shook at 2:13 PM
[2019-10-06 14:35] LABS: Actual Bicarbonate (HCO3a) 19.6 mEq/L (22-28); Base Excess (BEa) -8.1 mEq/L (-2.0 to +3.0); CO2 Tension 50.6 mmHg (35.0-45.0); Calcium, Ionized 1.21 mmol/L (1.12-1.30); Carboxyhemoglobin (COHb) 1.9 gm% (0.0-3.0); Hemoglobin (Hb) 8.8 g/dL (12.0-16.0); Potassium - ABG Lab 4.19 mmol/L (3.70-5.30)
--- NOTE | 2019-10-06 14:35 | PDOC.HOSPP ---
- Subjective Encounter Date: 10/06/19 Encounter Time: 12:20 Subjective: she had MBS y'day and ok to start soft diet, which is started last PM but then pt got nauseated again o/n. NGT being placed again. Na improved to 131. - Objective Vital Signs & Weight: Vital Signs (12 hours) Temp Pulse BP Pulse Ox 10/06/19 14:01 44 L 90/32 L 10/06/19 12:00 84 L 10/06/19 10:57 98 10/06/19 07:57 93 L 10/06/19 07:49 97.5 F L 10/06/19 07:47 67 10/06/19 07:45 67 10/06/19 03:29 67 10/06/19 03:25 96.4 F L Weight Admit Weight 167 lb 8 oz Weight 167 lb 8 oz Most Recent Monitor Data Heart Rate from ECG 71 NIBP 141/55 NIBP BP-Mean 83 Respiration from ECG 20 SpO2 88 I&O: 10/05/19 10/06/19 10/07/19 06:59 06:59 06:59 Intake Total 794 390 Output Total 625 250 Balance 169 140 Result Diagrams: 10/03/19 09:01 10/06/19 04:39 Additional Labs: Accuchecks 10/06/19 10/06/19 10/06/19 12:10 08:34 05:32 POC Glucose 166 H 170 H 170 H 10/05/19 10/05/19 20:01 16:05 POC Glucose 185 H 203 H Hospitalist ROS - Medication Medications: Active Medications Generic Name Dose Route Start Last Admin Trade Name [place] PRN Reason Stop Dose Admin Lipase/Protease/Amylase 1 cap 10/02/19 23:57 10/03/19 00:08 Mack Gannon [id number] FS 1 cap .PER PROTOCOL PRN Administration TUBE OCCLUSION PROTOCOL Artificial Tears 1 drop 10/04/19 21:00 10/06/19 10:24 Tears Naturale EA EYE 1 drop BID CLARISA Administration Aspirin 81 mg 09/30/19 09:00 10/06/19 07:45 Aspirin Chewable PO Not Given DAILY CLARISA Dorzolamide/Timolol 1 drop 10/05/19 21:00 10/06/19 10:24 Cosopt 2-0.5% Ophth Soln L EYE 1 drop BID CLARISA Administration Enoxaparin Sodium 30 mg 09/30/19 09:00 10/06/19 10:25 Lovenox SC 30 mg 0900 CLARISA Administration Famotidine 20 mg 09/30/19 09:00 10/06/19 07:46 Pepcid PO Not Given QAM CLARISA Fluconazole 100 mg 09/30/19 09:00 10/06/19 07:46 Diflucan PO Not Given DAILY CLARISA Insulin Glargine 10 units/ 0.1 mls @ 0 mls/hr 09/30/19 21:00 10/06/19 07:50 Miscellaneous Medication SC Not Given BID CLARISA Meropenem 1 gm/ Device 50 mls @ 100 mls/hr 10/01/19 04:00 10/06/19 04:28 IVPB 50 mls 0400,1600 CLARISA Administration Insulin Human Lispro 0 units 09/30/19 14:58 10/05/19 16:40 Humalog SC 4 units .MODERATE SLIDING SC PRN Administration Moderate Correctional Scale Latanoprost 1 drop 10/05/19 21:00 10/05/19 21:05 Xalatan 0.005% Ophth Soln L EYE 1 drop HS CLARISA Administration Metoclopramide HCl 10 mg 10/04/19 15:30 10/06/19 09:14 Reglan IVP 10 mg Q8H CLARISA Administration Ondansetron HCl 4 mg 09/29/19 22:09 10/06/19 13:00 Zofran IVP 4 mg Q6H PRN Administration Nausea/Vomiting Pravastatin Sodium 20 mg 09/30/19 21:00 10/05/19 21:01 Pravachol PO 20 mg QPM CLARISA Administration Senna/Docusate Sodium 2 tab 09/30/19 09:00 10/06/19 07:47 Senokot S PO Not Given BID CLARISA Sodium Bicarbonate 650 mg 10/02/19 23:57 10/03/19 00:08 Bicarbonate, Sodium PER TUBE 650 mg .PER PROTOCOL PRN Administration ENTERAL TUBE OCCLUSION Sodium Bicarbonate 650 mg 10/04/19 21:00 10/06/19 07:48 Bicarbonate, Sodium PO Not Given BID CLARISA Sodium Chloride 10 ml 09/30/19 09:00 10/06/19 10:25 Flush - Normal Saline IVF 10 ml Q12HR CLARISA Administration Sodium Chloride 0 ml 10/01/19 01:10 10/01/19 01:32 [place] Nasal [place] 0.65% EA NARE 2 spray TID PRN Administration Nasal Congestion Tetrahydrozoline HCl 1 drop 10/04/19 21:00 10/06/19 10:25 Visine Ac 0.05% Opth L EYE 1 drop BID CLARISA Administration - Exam General Appearance: NAD, awake alert Eye: PERRL ENT: normocephalic atraumatic Heart: RRR, normal peripheral pulses Respiratory: CTAB Gastrointestinal: soft, normal bowel sounds Hosp A/P - Plan suspected sepsis - hypovolumic iwthout shock Sepsis likely also d/t UTI/ bacteremia Dehydration Hypovolumic hyponateremia Hypoglycemia with hx of DM2 Abn troponin d/t sepsis, type II. --> plateaued. ESBL E.coli bcateremia -u cx - neg. -flu neg -repeating the blood shanta / -wbcs trending down. blood shanta no growth x 48hrs---> vanc. ---> dc'd. -on vanc + cefepime-----------> merum -pharm c/s -IV NS Recurrent UTI -last one in july -ineffective tx in the past w.. macrobid. even though u shanta < 5000 colonies of GNR, blood shanta positive--repet bl cx neg 5 days --Echo - mitral v calcification, no marvin vegetation, nl EF. -started on merum for 2 weeks-- --PICC line in place. -appreciate ID help. Ileus - NG tube put out over 500 ml last night and this PM, 200 ml. -will clamp and trial of CLD.-->repeat KUB - coiled in hiatal hernia - MBS study done on --- puree/nectar BP is better NGT replaced again this am - - if no output, then she likely go for gastrograffin study -appreciate GI help. hyponateremia on NS. goal 6-8 meq/23hrs, renal consult placed. Hypokalemia----------------> improved Hypocalcemia-------> corrected Hypomagnesemia-----> corrected LUE edema/swelling after PICC insertion -- neg for DVT HTN off cloinidine up on hydralazine. full code
[2019-10-06 14:40] LABS: pH, Arterial 7.21 (7.35-7.45)
[2019-10-06] MEDS ORDERED: fentaNYL Citrate/PF 2,000 MCG in Sodium Chloride 0.9% 60 ML IV SCH (14:40)
[2019-10-06] MEDS ORDERED: Fentanyl BOLUS 250 ML IVPB PRN (14:40)
[2019-10-06] MEDS ORDERED: DISCONTINUE PREVIOUS NARCOTIC PAIN MEDICATIONS AND BENZODIAZEPINES FS SCH (14:40)
[2019-10-06] MEDS ORDERED: Lorazepam 2 MG/ML VIAL SLOW IVP PRN (14:40)
[2019-10-06] MEDS ORDERED: Propofol BOLUS 1,000 MG/100 ML VIAL IV PRN (14:40)
[2019-10-06] MEDS ORDERED: Morphine 2 MG/ML SYRINGE SLOW IVP PRN (14:40)
[2019-10-06 14:41] LABS: O2 Tension (PaO2) 54.9 mmHg (> 70.0); Peep/CPAP 8.5 cmH2O; Puncture Site LRA
--- NOTE | 2019-10-06 14:45 | PRG ---
DATE OF SERVICE: 10/06/2019 SERVICE: Pulmonary Medicine. INTERVAL HISTORY: The patient is doing poorly from respiratory standpoint. She was weaned back down to room air yesterday, but once again overnight had another aspiration event. She is not strong enough to cough up the mucus from her lungs. She had NT suctioning and she had nothing, but GI contents coming out of her lungs. She cannot provide any additional elements of the history. She had an increasing respiratory distress once again. She was placed on BiPAP, but today, she did not recover. She is being moved to the ICU, and we are electing to intubate her moving forward. PHYSICAL EXAMINATION: VITAL SIGNS: Afebrile, pulse 71, blood pressure 141/55, respirations 20, and saturation 98% currently on 80% FiO2 delivered via BiPAP. GENERAL: The patient is awake and alert. She is in some respiratory distress. HEENT: Normocephalic and atraumatic. Sclerae white. Conjunctivae pink. Oral mucosa is moist without lesions. LUNGS: Decent air entry. Extensive rhonchi are present throughout bilateral lung ogden with dependent crackles. There is decreased air entry at the right base. HEART: Normal rate. Regular. ABDOMEN: Soft, nontender, and nondistended. Bowel sounds are positive. MUSCULOSKELETAL: No cyanosis or clubbing. There is diffuse 1 to 2+ pitting throughout. NEUROLOGIC: Grossly nonfocal. LABORATORY DATA: WBC 8.4, hemoglobin 9.6, platelets 372,000. A pH 7.28, pCO2 of 47, pO2 of 60. Creatinine 2.07, continues to trend upward. BUN 35. Basic metabolic profile is otherwise unremarkable. Sodium 131 and gently uptrending. Urinalysis is unremarkable. Urine sodium 20, osmolality 289. Vancomycin trough 14.1. Respiratory culture is growing Celia albicans. E coli is growing in the blood, which is fairly resistant. Urine culture also demonstrates gram-negative rods. IMAGIN. KUB demonstrates an enteric catheter coursing into the region of the stomach midline below the level of the diaphragm. There is interval removal of the previously placed Dobbhoff tube. 2. Chest x-ray demonstrates interval placement of an endotracheal tube in the right mainstem. This has subsequently been retracted by 2 to 3 cm. She has an enteric catheter coursing midline below the level of the diaphragm. There is an infiltrate in the right lung, there is a possible effusion over that side too. ASSESSMENT: 1. Acute hypoxic respiratory failure. 2. Acute kidney injury on chronic kidney disease, stage 4. 3. Acute on chronic diastolic heart failure. 4. Bacteremia secondary to olivera resistant Escherichia coli. 5. Severe sepsis. 6. Urinary tract infection. 7. Abnormal sputum culture, growing Celia albicans. DISCUSSION AND PLAN: At this point, her biggest problem is that her weakness that she has developed while being here has caused her to have significant aspiration related events that have caused lung injury. We will move forward with intubation. Hopefully over the next 24 to 48 hours when she defervesced and her oxygen requirements decreased, we can consider her for extubation. She will need a 14-day course of antibiotics directed at her olivera resistant organism. Aztreonam is not adding anything here and will be interrupted. Meropenem will be continued through time. Critical Care will follow. CRITICAL CARE TIME: 30 minutes. Job ID: [id number]
[2019-10-06] MEDS: Propofol 1,000 MG/100 ML VIAL IV PRN ×2 (14:53→17:15)
--- NOTE | 2019-10-06 17:00 | PRG ---
DATE OF SERVICE: 10/06/2019 SUBJECTIVE: The patient was seen, ventilator assistance not being too great with following vital signs. OBJECTIVE: VITAL SIGNS: Blood pressure 141/55, respiratory rate 20, pulse 71, 98% O2 saturation with 80% FiO2. HEENT: Remarkable for BiPAP mask in place. CARDIOVASCULAR: First and second heart sounds were heard. RESPIRATORY: Revealed a lot of transmitted sounds. DIGESTIVE SYSTEM: Revealed a benign abdomen. EXTREMITIES: No peripheral edema. IMPRESSION: 1. Pdpfr-at-owmstex kidney disease. 2. Diastolic congestive heart failure. 3. Acute respiratory failure. 4. Sepsis. PLAN: 1. Continue respiratory supportive measures. 2. Renally dose all medications. 3. Further management to be dependent on the clinical course. Job ID: [id number]
[2019-10-06] MEDS: HumaLOG 300 UNITS/3 ML VIAL SC PRN (17:09)
[2019-10-06] MEDS: Pravastatin Sodium 20 MG TAB PO SCH (21:21)
[2019-10-06] MEDS: Latanoprost 0.005% Ophth Soln 2.5 ml Bottle L EYE SCH (21:45)
[2019-10-07] MEDS: Propofol 1,000 MG/100 ML VIAL IV PRN ×3 (00:53→20:56)
[2019-10-07] MEDS: MEROPENEM 1 GM/50 ML 1 GM in Premix Bag 1 BAG IVPB SCH ×2 (03:26→15:32)
[2019-10-07 04:31] LABS: #Eosinphils 0.1 thou/uL (0.0-0.7); #Lymphocytes 1.6 thou/uL (1.20-3.40); #Monocytes 0.6 thou/uL (0.11-0.59); #Neutrophils 16.2 thou/uL (1.40-6.50); %Basophils 0.1 % (0.0-1.0); %Eosinophils 0.3 % (0.0-10.0); %Lymphocytes 8.6 % (21.0-51.0); %Monocytes 3.5 % (0.0-10.0); %Neutrophils 87.6 % (42.0-75.0); Hemoglobin 8.1 g/dL (12.0-16.0); Mean Corpuscular HGB CONC 33.5 g/dL (32.0-36.0); Mean Corpuscular Hemoglobin 29.5 pg (27.0-31.0); Mean Corpuscular Volume 88.1 fL (78.0-98.0); Mean Platelet Volume 7.3 fL (7.4-10.4); Platelet Count 351 thou/uL (130-400); RBC Distribution Width 13.2 % (11.5-14.5); Red Blood Cell (RBC) Count 2.75 mill/uL (4.20-5.40); White Blood Cell (WBC) Count 18.5 thou/uL (4.8-10.8)
[2019-10-07 04:59] LABS: Anion Gap 16 mmol/L (10-20); BUN (Urea Nitrogen) 38 mg/dL (9.8-20.1); Calc. Creatinine Clearance 21 mL/min (70-130); Calcium 7.8 mg/dL (7.8-10.44); Carbon Dioxide 17 mmol/L (23-31); Chloride 101 mmol/L (98-107); Estimated GFR-MDRD 18; Glucose 140 mg/dL (83-110); Magnesium 2.1 mg/dL (1.6-2.6); Phosphorus 5.7 mg/dL (2.3-4.7); Potassium 4.5 mmol/L (3.5-5.1); Sodium 129 mmol/L (136-145)
[2019-10-07] MEDS ORDERED: MD-Gastroview 120 ML BOT ONE (08:53)
[2019-10-07] MEDS: Metoclopramide HCl 10 MG/2 ML VIAL IVP SCH ×3 (09:12→23:44)
[2019-10-07] MEDS: Insulin Glargine 10 UNITS in Pre-Filled Syringe 1 EACH SC SCH ×2 (09:13→21:37)
[2019-10-07] MEDS: Enoxaparin Sodium 30 MG/0.3 ML SYRINGE SC SCH (09:35)
[2019-10-07] MEDS: Artificial Tears 18 DROP/0.9 ML EA EYE SCH ×2 (09:35→20:35)
[2019-10-07] MEDS: Aspirin Chewable 81 MG TAB PO SCH (09:36)
[2019-10-07] MEDS: DorzolamidE/Timolol 2%/0.5% Ophth Soln 10 ml Bottle L EYE SCH ×2 (09:37→20:27)
[2019-10-07] MEDS: Famotidine 20 MG TAB PO SCH (09:38)
[2019-10-07] MEDS: Fluconazole 100 MG TAB PO SCH (09:38)
[2019-10-07] MEDS: Senokot S 8.6-50 MG TAB PO SCH ×2 (09:38→20:36)
[2019-10-07] MEDS: Tetrahydrozoline 0.05% OPTH 15 ML BOT L EYE SCH ×2 (09:42→20:37)
[2019-10-07] MEDS: Sodium Bicarbonate Tab 325 MG TAB PO SCH ×2 (09:45→20:36)
--- NOTE | 2019-10-07 10:10 | PRG ---
DATE OF SERVICE: 10/07/2019 SERVICE: Pulmonary Medicine. INTERVAL HISTORY: The patient is doing really well from respiratory standpoint. Breathing comfortably. Overnight, there were no events. She remains on mechanical ventilation, and she required some sedation. With the epinephrine drip, her heart rate is up, her blood pressure is doing fantastic. She is yet to make any significant urine output. PHYSICAL EXAMINATION: VITAL SIGNS: Afebrile, pulse is 68, blood pressure 149/46, respirations 24, saturation 95%, currently on 53% FiO2 and a PEEP of 7. HEENT: Normocephalic and atraumatic. Sclerae white. Conjunctivae pink. Oral mucosa is moist without lesions. LUNGS: Decent air entry. Crackles are present. No prolonged expiratory phase or wheezing is appreciated. HEART: Normal rate. Regular. ABDOMEN: Soft, nontender, nondistended. Bowel sounds are positive. MUSCULOSKELETAL: No cyanosis or clubbing. Diffuse edema is present. NEUROLOGIC: Grossly nonfocal. She moves all 4 extremities. LABORATORY DATA: WBC 18.5, hemoglobin 8.1, platelets 351,000. PH 7.21, pCO2 of 50, and pO2 of 54 at that time. Creatinine 2.59 and gently up trending, BUN 38. Sodium is up trending to 129. Basic metabolic profile; phosphorus is 5.7, magnesium 2.1. Urinalysis is positive for bacteria and yeast. E coli is growing in both blood cultures, and urine culture. Celia albicans was growing in a urine culture. Repeat blood cultures from the are unremarkable. IMAGING STUDIES: Chest x-ray following intubation demonstrates ET tube in the right mainstem bronchus that was subsequently retracted by 2 cm. Right-sided pleural-parenchymal disease is present. Right-sided layering effusion is also noted. ASSESSMENT: 1. Acute hypoxic respiratory failure. 2. Acute kidney injury on chronic kidney disease 4. 3. Acute on chronic diastolic heart failure. 4. Sinus bradycardia. 5. Severe sepsis. 6. Bacteremia secondary to olivera resistant Escherichia coli. 7. Urinary tract infection secondary to gram-negative eber. 8. Abnormal Celia growing from sputum. DISCUSSION AND PLAN: I will send sent off a sputum for Gram stain and culture. We are looking for Staph aureus to see whether or not we need to broaden out her antibiotic coverage, but for the time being, we will hold course. We will watch urine output closely over the next 24 to 48 hours. We will try to minimize fluids, and we will not provide any diuretics for the time being. Critical Care will follow. Critical care time: 30 minutes. Job ID: [id number] MTDD
--- NOTE | 2019-10-07 10:53 | CON ---
DATE OF CONSULTATION: HISTORY OF PRESENT ILLNESS: Sharri Mendoza is a 79-year-old female who was hospitalized on September 29, 2019, with 3 days of nausea and vomiting. She had recently been hospitalized in July 2019 with urinary tract infection and sepsis syndrome. Urine cultures grew E coli. Blood cultures were negative. She also complained of lower abdominal pain this admission. Blood and urine cultures have grown E coli, which was resistant to most antibiotics. She was transferred to the unit on October 03 due to concerns regarding possible aspiration pneumonia. She was placed on oxygen and BiPAP and ultimately her breathing improved and she was weaned down to room air and transferred to the intermediate care unit. Then yesterday on October 05, she had another aspiration event overnight. She was hypothermic with a temperature of 95.2 and with increased respiratory distress, she was transferred back to the ICU and underwent intubation. At times, she would be bradycardic with sinus bradycardia with rates in the 30s. In the unit, she has been intubated, placed on low-dose epinephrine and rewarmed and her heart rate stays in the 70s at the present time. The patient is intubated and unable to give any history. PAST MEDICAL HISTORY: Remarkable for diabetes, hypothyroidism, hypercholesterolemia, hypertension, probable gastroparesis. PAST SURGICAL HISTORY: Cholecystectomy, right great toe amputation. HOME MEDICATIONS: Include: 1. Amlodipine 5 mg daily. 2. Aspirin 81 daily. 3. Ferrous sulfate daily. 4. Glipizide 5 mg daily. 5. Levemir. 6. Nitrofurantoin 100 daily. 7. Olmesartan/hydrochlorothiazide 40/12.5 q.a.m. 8. Omeprazole 40 daily. 9. Pravastatin 20 q.p.m. ALLERGIES: PENICILLIN. SOCIAL HISTORY: She apparently does not smoke or drink. FAMILY HISTORY: Unobtainable with the patient being sedated and intubated. REVIEW OF SYSTEMS: Unobtainable with the patient being sedated and intubated. PHYSICAL EXAMINATION: VITAL SIGNS: Blood pressure 149/46, pulse of 68. HEENT: PERRL. NECK: Supple. CHEST: Reveals rhonchi on the right, left is fairly clear. CARDIOVASCULAR: S1 and S2 normal without any S3, S4, or murmurs. ABDOMEN: Normal bowel sounds. Abdomen is obese. EXTREMITIES: Reveal 2+ arm edema, 1+ leg edema. NEUROLOGIC: The patient is sedated. LABORATORY DATA: I do not see an EKG on the chart. Echocardiogram revealed technically difficult study with ejection fraction of 55% to 60%, mild left atrial enlargement, evidence for diastolic dysfunction, mild tricuspid regurgitation. Hemoglobin 8.1, hematocrit 24.2, white count 18,500, platelets 351,000. ABG prior to intubation, pH 7.21, pCO2 of 50.6, pO2 of 54.9. Sodium 129, potassium 4.5, chloride 101, carbon dioxide 17, BUN 38, creatinine 2.59. She has had a sodium as low as 116 during this admission. Creatinine at time of admission was 1.55 and a day after that was 1.20. BNP 382. IMPRESSION: 1. Bradycardia, which appears to have resolved with rewarming and low-dose epinephrine. 2. Pmvyd-mt-idfockp diastolic heart failure. 3. Escherichia coli sepsis, multiply resistant. 4. Chronic kidney disease. 5. Hypertension. 6. Hypercholesterolemia. 7. Diabetes. PLAN: EKG will be obtained. At the present time, she has adequate heart rate after rewarming and on low-dose epinephrine. I will continue to follow the patient with you. Job ID: [id number] MTDD
--- NOTE | 2019-10-07 13:11 | PRG ---
DATE OF SERVICE: 10/07/2019 SUBJECTIVE: Ms. Mendoza had further decline in her respiratory status yesterday and required intubation and mechanical ventilation. She has had no stool output today. PHYSICAL EXAMINATION: VITAL SIGNS: Temperature 98.8, blood pressure 154/51, pulse 65. GENERAL: She is sedated on the vent. LUNGS: Have bilateral coarse breath sounds diffusely. HEART: Regular rate and rhythm without murmur. ABDOMEN: Soft and nondistended. Bowel sounds are present. EXTREMITIES: No lower extremity edema. LABORATORY DATA: White blood cell count 18.5, hemoglobin 8.1, platelets 351. Creatinine 2.59. IMPRESSION: 1. Dysphagia and aspiration pneumonia. She has respiratory failure associated with this and acute renal failure. 2. Ileus. She has an NG tube now down passed her hiatal hernia into the stomach. She has had no significant return with suction from the NG tube. We can put some Gastrografin through the tube now and if this passes on down, then she could start feeds through the NG tube. RECOMMENDATIONS: 1. Gastrografin imaging study verified there was no gastric outlet obstruction and that the contrast will advance distally. 2. If the contrast study is clear, then she can start tube feeds through the NG tube. Job ID: [id number]
--- NOTE | 2019-10-07 13:32 | PDOC.HOSPP ---
- Subjective Encounter Date: 10/07/19 Encounter Time: 11:30 Subjective: Per nursing staff, patient underwent barium swallow and passed it. Patient supposedly aspirated, desaturated to 75% on 4L nasal cannula. Patient was placed on BIPAP and was hypoxic to 85%. RT suctioned a lot of emesis and then patient ended up intubated. - Objective Vital Signs & Weight: Vital Signs (12 hours) Temp Pulse Resp BP Pulse Ox 10/07/19 12:00 19 10/07/19 11:00 98.8 F 10/07/19 10:18 71 134/50 L 10/07/19 10:00 18 10/07/19 08:00 20 96 10/07/19 07:22 66 127/54 L 10/07/19 07:00 99 F 10/07/19 06:00 15 10/07/19 05:06 48 L 122/41 L 10/07/19 04:00 98.6 F 17 10/07/19 02:07 45 L 132/37 L 10/07/19 02:06 99 10/07/19 02:00 15 Weight Admit Weight 167 lb 8 oz Weight 193 lb 12.581 oz Most Recent Monitor Data Heart Rate from ECG 67 NIBP 153/52 NIBP BP-Mean 85 Respiration from ECG 20 SpO2 95 I&O: 10/06/19 10/07/19 10/08/19 06:59 06:59 06:59 Intake Total 390 908 120 Output Total 250 85 35 Balance 140 823 85 Result Diagrams: 10/07/19 03:55 10/07/19 03:55 Hospitalist ROS - Review of Systems ROS unobtainable: due to endotracheal tube - Medication Medications: Active Medications Generic Name Dose Route Start Last Admin Trade Name Freq PRN Reason Stop Dose Admin Lipase/Protease/Amylase 1 cap 10/02/19 23:57 10/03/19 00:08 Mack Gannon [id number] FS 1 cap .PER PROTOCOL PRN Administration TUBE OCCLUSION PROTOCOL Artificial Tears 1 drop 10/04/19 21:00 10/07/19 09:35 Tears Naturale EA EYE 1 drop BID CLARISA Administration Aspirin 81 mg 09/30/19 09:00 10/07/19 09:36 Aspirin Chewable PO 81 mg DAILY CLARISA Administration Dorzolamide/Timolol 1 drop 10/05/19 21:00 10/07/19 09:37 Cosopt 2-0.5% Ophth Soln L EYE 1 drop BID CLARISA Administration Famotidine 20 mg 09/30/19 09:00 10/07/19 09:38 Pepcid PO 20 mg QAM CLARISA Administration Fluconazole 100 mg 09/30/19 09:00 10/07/19 09:38 Diflucan PO 100 mg DAILY CLARISA Administration Insulin Glargine 10 units/ 0.1 mls @ 0 mls/hr 09/30/19 21:00 10/07/19 09:13 Miscellaneous Medication SC 0.1 mls BID CLARISA Administration Meropenem 1 gm/ Device 50 mls @ 100 mls/hr 10/01/19 04:00 10/07/19 03:26 IVPB 50 mls 0400,1600 CLARISA Administration Norepinephrine Bitartrate 250 mls @ 0 mls/hr 10/06/19 14:15 10/06/19 14:53 Levophed IVPB 250 mls PRN PRN Administration To maintain MAP > 65 Protocol Titrate Epinephrine 2 mg/ Dextrose/ 252 mls @ 0 mls/hr 10/06/19 15:30 10/07/19 03:25 Water IVPB 252 mls INF CLARISA Administration Protocol Titrate Insulin Human Lispro 0 units 09/30/19 14:58 10/06/19 17:09 Humalog SC 2 units .MODERATE SLIDING SC PRN Administration Moderate Correctional Scale Latanoprost 1 drop 10/05/19 21:00 10/06/19 21:45 Xalatan 0.005% Ophth Soln L EYE 1 drop HS CLARISA Administration Lorazepam 2 mg 10/06/19 14:40 10/06/19 14:54 Ativan SLOW IVP 11/05/19 14:40 2 mg Q1H PRN Administration Breakthrough agitation Metoclopramide HCl 10 mg 10/04/19 15:30 10/07/19 09:12 Reglan IVP 10 mg Q8H CLARISA Administration Ondansetron HCl 4 mg 09/29/19 22:09 10/06/19 13:00 Zofran IVP 4 mg Q6H PRN Administration Nausea/Vomiting Pravastatin Sodium 20 mg 09/30/19 21:00 10/06/19 21:21 Pravachol PO 20 mg QPM CLARISA Administration Propofol 1,000 mg 10/06/19 14:40 10/07/19 10:36 Diprivan IV 11/05/19 14:40 1,000 mg INF PRN Administration TO ACHIEVE GOAL RASS Protocol Senna/Docusate Sodium 2 tab 09/30/19 09:00 10/07/19 09:38 Senokot S PO 2 tab BID CLARISA Administration Sodium Bicarbonate 650 mg 10/02/19 23:57 10/03/19 00:08 Bicarbonate, Sodium PER TUBE 650 mg .PER PROTOCOL PRN Administration ENTERAL TUBE OCCLUSION Sodium Bicarbonate 650 mg 10/04/19 21:00 10/07/19 09:45 Bicarbonate, Sodium PO 650 mg BID CLARISA Administration Sodium Chloride 10 ml 09/30/19 09:00 10/07/19 09:42 Flush - Normal Saline IVF 10 ml Q12HR CLARISA Administration Sodium Chloride 0 ml 10/01/19 01:10 10/01/19 01:32 [place] Nasal [place] 0.65% EA NARE 2 spray TID PRN Administration Nasal Congestion Tetrahydrozoline HCl 1 drop 10/04/19 21:00 10/07/19 09:42 Visine Ac 0.05% Opth L EYE 1 drop BID CLARISA Administration - Exam General Appearance: NAD, awake alert Eye: PERRL, anicteric sclera ENT: normocephalic atraumatic, no oropharyngeal lesions Neck: supple, no JVD Heart: RRR, no murmur, no gallops, no rubs Respiratory - other findings: bilateral rhonchi Gastrointestinal: soft, non-tender, non-distended Extremities: no cyanosis, no clubbing, no edema Hosp A/P - Plan This is 79 year old female who presented with severe intractable nausea and vomiting, treated for sepsis. Required intubation due to aspiration yesterday. Septic shock secondary to UTI - patient currently on meropenem and pressors - blood cultures 2/2 E coli on 09/28, repeat blood cultures negative. Urine culture growing gram negative eber, pending speciation - Chest X ray 10/05 unremarkable, will repeat - WBC up to 18.4, will add vancomycin #Hyponatremia #Acute Kidney Injury - sodium dropped from 131 to 129 - creatinine increase from 2.07 to 2.59 - will add IV fluids #Ileus - small bowel X ray ordered, results pending - GI is following #Type II diabetes - on glargine 10, blood sugars controlled #Anemia - Hb 8.1, will monitor DVT prophylaxis: lovenox Code status: full code
[2019-10-07] MEDS ORDERED: Vancomycin 1 GM in Premix Bag 1 BAG IVPB SCH ×3 (13:36→15:45)
[2019-10-07] MEDS ORDERED: Sodium Chloride 0.9% 1,000 ML IV SCH (13:45)
[2019-10-07] MEDS ORDERED: Vancomycin HCl 1.25 GM in Sodium Chloride 0.9% 250 ML 250 ML IVPB SCH (14:00)
--- NOTE | 2019-10-07 14:11 | RAD ---
EXAM: CHEST ONE VIEW HISTORY: Bronchi COMPARISON: 10/06/2019 FINDINGS: Patient is rotated to the right. Endotracheal tube, nasogastric tube, and left-sided PICC line remain in place. There is contrast overlying the distal esophagus and in the stomach related to recent injection of contrast via nasogastric tube. Bilateral pleural effusions are again seen. Parenchymal a irspace opacities are also seen bilaterally which have increased on the left. Increase in bilateral perihilar interstitial densities are also again noted. Cardiac silhouette is magnified by projection. Pulmonary vasculature is at the upper limits of normal. No other interval change. IMPRESSION: 1. Bilateral pleural effusions and increased interstitial as well as parenchymal airspace opacities i n the perihilar regions which may be related to either pulmonary edema or infectious process. 2. Lines and tubes stable in position. Contrast is seen overlying the distal esophagus and in the vis ualized fundus of the stomach
--- NOTE | 2019-10-07 15:53 | RAD ---
EXAM: XR Small Bowel STANDARD PROVIDED CLINICAL HISTORY: Evaluate for gastric outlet obstruction. COMPARISON: None FINDINGS: Nasogastric tube is noted in place with the tip of the nasogastric tube overlying the proximal body o f the stomach and most proximal sidehole likely overlying the region of the GE junction. Filer Helper image demonstrates small amount of contrast overlying the distal esophagus. Residual contrast is seen in the transverse colon and at the hepatic and splenic flexures. Bibasilar pleural and parenchymal lung changes are seen which may represent bilateral pleural effusions and atelectasis. Pneumonia at t he right lung base is a possibility. Normal caliber loops of small bowel are seen. There is increase in amount of contrast in the colon on the 30 minute image and certainly on the 90 minute image. On the 90 minute image, there is contrast seen in the distal esophagus related to reflux. IMPRESSION: 1. No dilated loops of small bowel are seen. Progression of contrast into the colon is approximately 30 minutes. 2. Bibasilar pleural and parenchymal lung changes greater on the right which may be related to bilate ral pleural effusions and atelectasis. Superimposed pneumonia right lung base is a possibility.
--- NOTE | 2019-10-07 18:30 | OP ---
DATE OF PROCEDURE: 10/06/2019 SERVICE: Pulmonary Medicine. PROCEDURE PERFORMED: Emergent endotracheal intubation. CONSENT: Procedure was performed emergently secondary to clinical deterioration and respiratory failure. MEDICATIONS USED: Propofol 80 mg IV push. PREPROCEDURE DIAGNOSES: 1. Acute hypoxic respiratory failure. 2. Aspiration pneumonitis. POSTPROCEDURE DIAGNOSES: 1. Acute hypoxic respiratory failure. 2. Aspiration pneumonitis. DESCRIPTION OF PROCEDURE: Vital sign monitoring was accomplished by noninvasive hemodynamic monitoring, pulse oximetry, and telemetry. In the supine position, the patient was preoxygenated with BiPAP and maintained with saturations of 100%. Following induction of anesthesia, a Mac-3 blade was inserted in the posterior oropharynx offering clear identification of the posterior oropharynx, but only a grade 3 view was obtained as she had quite an anterior profile. A 7.5-Sammarinese endotracheal tube was visualized passing through the vocal cords. Placement was confirmed by condensation in endotracheal tube and bi- axillary chest auscultation. Endotracheal tube was secured at 24 cm, measured at the teeth. The patient was placed on mechanical ventilation with good return of volumes. Postprocedure x-ray demonstrated good location for the endotracheal tube within the trachea. ESTIMATED BLOOD LOSS: None. COMPLICATIONS: Aspiration of abdominal contents, and transient hypotension that resolved fairly quickly. Job ID: [id number] [facility]
--- NOTE | 2019-10-07 19:49 | PRG ---
DATE OF SERVICE: 10/07/2019 SUBJECTIVE: The patient Noted with the following vital signs. OBJECTIVE: VITAL SIGNS: Blood pressure respiratory rate of 18, pulse 69, O2 sat of 96% on life support. HEENT: Remarkable for endotracheal tube in place. CARDIOVASCULAR SYSTEM: First and second heart sounds were heard. RESPIRATORY SYSTEM: Revealed vented sounds. DIGESTIVE SYSTEM: Revealed a benign abdomen. EXTREMITIES: Show some peripheral edema. SKIN: No new gross rash. LYMPHATICS: No peripheral lymphadenopathy. LABORATORY INVESTIGATION: Showed a white count of 18,500, hemoglobin of 8.1. Chemistry showed a sodium of 129, bicarb of 17 with a creatinine of 2.59. IMPRESSION: 1. Worsening acute on chronic kidney disease. 2. Hyponatremia. 3. Metabolic acidosis. 4. Cardiopulmonary failure, on life support. PLAN: 1. We will continue to renally dose all medications. 2. Avoid potentially nephrotoxic agents. 3. Further management will be dependent on the clinical course. Job ID: [id number]
[2019-10-07] MEDS: Heparin 5,000 UNITS/ML VIAL SC SCH (20:34)
[2019-10-07] MEDS: Pravastatin Sodium 20 MG TAB PO SCH (20:36)
[2019-10-07] MEDS: Latanoprost 0.005% Ophth Soln 2.5 ml Bottle L EYE SCH (20:37)
[2019-10-07] MEDS: Dextrose 50% Abboject 50 ML SYRINGE SLOW IVP PRN (20:45)
[2019-10-08] MEDS: MEROPENEM 1 GM/50 ML 1 GM in Premix Bag 1 BAG IVPB SCH ×2 (03:19→15:36)
[2019-10-08 03:44] LABS: #Eosinphils 0.3 thou/uL (0.0-0.7); #Lymphocytes 2.1 thou/uL (1.20-3.40); #Monocytes 0.6 thou/uL (0.11-0.59); #Neutrophils 13.8 thou/uL (1.40-6.50); %Basophils 0.3 % (0.0-1.0); %Eosinophils 1.5 % (0.0-10.0); %Lymphocytes 12.6 % (21.0-51.0); %Monocytes 3.5 % (0.0-10.0); %Neutrophils 82.1 % (42.0-75.0); Hemoglobin 8.2 g/dL (12.0-16.0); Mean Corpuscular HGB CONC 33.8 g/dL (32.0-36.0); Mean Corpuscular Hemoglobin 29.7 pg (27.0-31.0); Mean Corpuscular Volume 87.9 fL (78.0-98.0); Mean Platelet Volume 7.3 fL (7.4-10.4); Platelet Count 333 thou/uL (130-400); RBC Distribution Width 13.5 % (11.5-14.5); Red Blood Cell (RBC) Count 2.75 mill/uL (4.20-5.40); White Blood Cell (WBC) Count 16.8 thou/uL (4.8-10.8)
[2019-10-08] MEDS: Propofol 1,000 MG/100 ML VIAL IV PRN ×3 (03:48→18:34)
[2019-10-08 04:00] LABS: Anion Gap 15 mmol/L (10-20); BUN (Urea Nitrogen) 41 mg/dL (9.8-20.1); Calc. Creatinine Clearance 23 mL/min (70-130); Calcium 7.9 mg/dL (7.8-10.44); Carbon Dioxide 19 mmol/L (23-31); Chloride 102 mmol/L (98-107); Estimated GFR-MDRD 17; Potassium 4.1 mmol/L (3.5-5.1); Sodium 132 mmol/L (136-145)
[2019-10-08 04:03] LABS: Glucose 46 mg/dL (83-110)
[2019-10-08] MEDS: Dextrose 50% Abboject 50 ML SYRINGE SLOW IVP PRN ×2 (04:11→12:16)
[2019-10-08] MEDS: Metoclopramide HCl 10 MG/2 ML VIAL IVP SCH ×2 (07:46→14:53)
[2019-10-08] MEDS: Aspirin Chewable 81 MG TAB PO SCH (09:15)
[2019-10-08] MEDS: Artificial Tears 18 DROP/0.9 ML EA EYE SCH ×2 (09:15→20:35)
[2019-10-08] MEDS: DorzolamidE/Timolol 2%/0.5% Ophth Soln 10 ml Bottle L EYE SCH ×2 (09:16→20:30)
[2019-10-08] MEDS: Heparin 5,000 UNITS/ML VIAL SC SCH ×2 (09:17→20:29)
[2019-10-08] MEDS: Famotidine 20 MG TAB PO SCH (09:17)
[2019-10-08] MEDS: Scopolamine 1.5 mg/72 hour Patch TD SCH (09:18)
[2019-10-08] MEDS: Sodium Bicarbonate Tab 325 MG TAB PO SCH ×2 (09:20→20:29)
[2019-10-08] MEDS: Senokot S 8.6-50 MG TAB PO SCH ×2 (09:20→20:29)
[2019-10-08] MEDS: Tetrahydrozoline 0.05% OPTH 15 ML BOT L EYE SCH ×2 (09:21→20:31)
--- NOTE | 2019-10-08 09:30 | PRG ---
DATE OF SERVICE: 10/08/2019 SERVICE: Pulmonary Medicine. INTERVAL HISTORY: The patient started making a little bit of urine. She is at 30 cc/h. Otherwise, there has been no real interval change to her condition. Vancomycin was initiated yesterday. I am thinking this was done empirically. We do have the results of the bronchial washing back. Many white blood cells were positive as well as gram-positive cocci in clusters. Very few budding yeasts were also identified. Otherwise, the patient cannot provide any interval history. She continues to have sialorrhea, and excessive respiratory secretions. They are quite thin and easy to liberate. Otherwise, there were no significant events. PHYSICAL EXAMINATION: VITAL SIGNS: Afebrile, pulse 72, blood pressure 148/54, respirations 15, saturation 97%, currently on 37% FiO2 and a PEEP of 5. GENERAL: The patient is awake and alert, in no apparent distress. LUNGS: Decent air entry. There are crackles and rhonchi present. There is a slightly prolonged expiratory phase. That being said, I do not hear any of the polyphonic wheezing present. HEART: Normal rate, regular. ABDOMEN: Soft, nontender, nondistended. Bowel sounds are positive. MUSCULOSKELETAL: No cyanosis or clubbing. Diffuse anasarca is present. NEUROLOGIC: Grossly nonfocal. LABORATORY DATA: WBC downtrending to 16.8, hemoglobin 8.2 and stable, platelets 333,000. Creatinine 2.70, BUN 41. Basic metabolic profile is otherwise unremarkable. Glucose 46. Her calcium 7.9. Respiratory culture has gram-positive cocci in clusters. Blood cultures x2 are unremarkable. Original blood cultures were growing E coli from the . Urine culture is growing gram-negative rods. Respiratory culture was originally growing presumptive Celia albicans, but now that component in the sputum is significantly improved. IMAGING: Chest x-ray demonstrates an endotracheal tube roughly 0.5 cm above the level of the kosta. There is probably a retrocardiac infiltrate on the left and small bilateral effusion. There appears to be some volume loss on the right. Otherwise, there is not much of the interval change. ASSESSMENT: 1. Acute hypoxic respiratory failure. 2. Acute kidney injury on chronic kidney disease 4. 3. Acute on chronic diastolic heart failure. 4. Sinus bradycardia, I believe this to be symptomatic. 5. Severe sepsis. 6. Bacteremia secondary to olivera resistant E coli. 7. Urinary tract infection secondary to gram-negative eber. 8. Abnormal Celia and gram-positive cocci in clusters, growing from sputum. DISCUSSION AND PLAN: We can continue our empiric antibiotics. IV fluids will be minimized. We will support her heart rate with minimal dose of epinephrine. Ultimately, when she recovers kidney function, we will try weaning this away, but if her urine output, and heart rate fall off once again, we will need to discuss options moving forward with Cardiology. Fluids will be minimized. Pulmonary/Critical Care will continue to follow in this location. CRITICAL CARE TIME: 30 minutes. Job ID: [id number]
--- NOTE | 2019-10-08 09:34 | RAD ---
PORTABLE CHEST: HISTORY: CCU followup. Intubation. COMPARISON: 10/07/19 FINDINGS: ET tube has tip just above the kosta. NG tube remains in place. Bilateral perihilar infiltrates with bilateral effusions and bibasilar atelectasis and/or infiltrates again noted. No interval change. IMPRESSION: Stable chest findings. POS: AGW
[2019-10-08 13:53] LABS: Vancomycin, Random 18.3 ug/mL (See Comment)
[2019-10-08] MEDS: Dextrose 5 % And 0.9 % NaCl 1,000 ML IV SCH (13:57)
--- NOTE | 2019-10-08 14:43 | PRG ---
DATE OF SERVICE: 10/08/2019 SUBJECTIVE: Ms. Mendoza is sedated on the ventilator. OBJECTIVE: LUNGS: Clear to auscultation anteriorly. HEART: Regular rate and rhythm without murmur. ABDOMEN: Soft, nondistended. Bowel sounds are present. EXTREMITIES: 1+ upper and lower extremity edema. LABORATORY DATA: White blood cell count 16.8, hemoglobin 8.2. Creatinine 2.7. IMPRESSION: 1. Aspiration pneumonia. 2. Recurrent vomiting. Her Gastrografin passed from her stomach to the colon without any problems. She apparently passed the swallowing study from an oropharyngeal dysphagia standpoint with a modified barium. Before she attempts eating again, if she is able to reach that point, we would want a barium esophagogram to assess esophageal motility and rule out significant esophageal obstructive process or complication with a hiatal hernia. At this point, she can receive tube feeds through the NG tube as this passes through hiatal hernia to more distal stomach. She is still at risk for reflux and aspiration, but her stomach appears to be emptying appropriately. RECOMMENDATIONS: 1. Start tube feeds through the NG tube. 2. If she is able to extubate and pass oropharyngeal swallow study in the future, she will need to give a trial of a barium esophagogram before attempting oral intake of food again. Job ID: [id number]
--- NOTE | 2019-10-08 14:45 | PDOC.HOSPP ---
- Subjective Encounter Date: 10/08/19 Encounter Time: 13:00 Subjective: The patient is still intubated. Patietn placed on epi drip due to heart rate being in 30's per nursing staff. Urine output now 100/hour per nurse with BP 170 systolic, but per nurse she had minimal urine output with lower BP in the 120's. - Objective Vital Signs & Weight: Vital Signs (12 hours) Temp Pulse Resp BP Pulse Ox 10/08/19 14:17 79 182/59 H 10/08/19 14:00 19 10/08/19 12:00 14 10/08/19 11:00 98.6 F 10/08/19 10:12 67 157/53 H 10/08/19 10:00 13 10/08/19 08:00 16 10/08/19 07:30 98 10/08/19 07:00 98.1 F 10/08/19 06:42 72 156/54 H 10/08/19 06:00 14 10/08/19 04:15 75 168/56 H 10/08/19 04:00 98.2 F 15 Weight Admit Weight 167 lb 8 oz Weight 191 lb 12.835 oz Most Recent Monitor Data Heart Rate from ECG 64 NIBP 182/56 NIBP BP-Mean 98 Respiration from ECG 19 SpO2 90 I&O: 10/07/19 10/08/19 10/09/19 06:59 06:59 06:59 Intake Total 908 1296 60 Output Total 85 815 660 Balance 823 481 -600 Result Diagrams: 10/08/19 03:25 10/08/19 03:25 Additional Labs: Accuchecks 10/08/19 10/08/19 10/08/19 12:16 09:04 04:53 POC Glucose 59 L* 71 121 H 10/07/19 10/07/19 10/07/19 21:06 15:51 10:24 POC Glucose 160 H 81 128 H 10/06/19 10/06/19 21:25 17:06 POC Glucose 168 H 196 H Hospitalist ROS - Review of Systems ROS unobtainable: due to endotracheal tube - Medication Medications: Active Medications Generic Name Dose Route Start Last Admin Trade Name Freq PRN Reason Stop Dose Admin Lipase/Protease/Amylase 1 cap 10/02/19 23:57 10/03/19 00:08 Mack G[place] [id number] FS 1 cap .PER PROTOCOL PRN Administration TUBE OCCLUSION PROTOCOL Artificial Tears 1 drop 10/04/19 21:00 10/08/19 09:15 Tears Naturale EA EYE 1 drop BID CLARISA Administration Aspirin 81 mg 09/30/19 09:00 10/08/19 09:15 Aspirin Chewable PO 81 mg DAILY CLARISA Administration Dextrose/Water 25 gm 09/30/19 14:58 10/08/19 12:16 Dextrose 50% SLOW IVP 25 gm PRN PRN Administration Hypoglycemia Dorzolamide/Timolol 1 drop 10/05/19 21:00 10/08/19 09:16 Cosopt 2-0.5% Ophth Soln L EYE 1 drop BID CLARISA Administration Famotidine 20 mg 09/30/19 09:00 10/08/19 09:17 Pepcid PO 20 mg QAM CLARISA Administration Heparin Sodium (Porcine) 5,000 units 10/07/19 21:00 10/08/19 09:17 Heparin SC 5,000 units BID CLARISA Administration Meropenem 1 gm/ Device 50 mls @ 100 mls/hr 10/01/19 04:00 10/08/19 03:19 IVPB 50 mls 0400,1600 CLARISA Administration Norepinephrine Bitartrate 250 mls @ 0 mls/hr 10/06/19 14:15 10/06/19 14:53 Levophed IVPB 250 mls PRN PRN Administration To maintain MAP > 65 Protocol Titrate Epinephrine 2 mg/ Dextrose/ 252 mls @ 0 mls/hr 10/06/19 15:30 10/07/19 23:44 Water IVPB 252 mls INF CLARISA Administration Protocol Titrate Dextrose/Sodium Chloride 1,000 mls @ 20 mls/hr 10/08/19 14:00 10/08/19 13:57 D5 0.9% Ns IV 1,000 mls .Q24H CLARISA Administration Insulin Human Lispro 0 units 09/30/19 14:58 10/06/19 17:09 Humalog SC 2 units .MODERATE SLIDING SC PRN Administration Moderate Correctional Scale Latanoprost 1 drop 10/05/19 21:00 10/07/19 20:37 Xalatan 0.005% Ophth Soln L EYE 1 drop HS CLARISA Administration Lorazepam 2 mg 10/06/19 14:40 10/06/19 14:54 Ativan SLOW IVP 11/05/19 14:40 2 mg Q1H PRN Administration Breakthrough agitation Metoclopramide HCl 10 mg 10/04/19 15:30 10/08/19 07:46 Reglan IVP 10 mg Q8H CLARISA Administration Ondansetron HCl 4 mg 09/29/19 22:09 10/06/19 13:00 Zofran IVP 4 mg Q6H PRN Administration Nausea/Vomiting Pravastatin Sodium 20 mg 09/30/19 21:00 10/07/19 20:36 Pravachol PO Not Given QPM CLARISA Propofol 1,000 mg 10/06/19 14:40 10/08/19 11:26 Diprivan IV 11/05/19 14:40 1,000 mg INF PRN Administration TO ACHIEVE GOAL RASS Protocol Scopolamine 1.5 mg 10/08/19 09:00 10/08/19 09:18 Transderm Scop TD 1.5 mg Q3D CLARISA Administration Senna/Docusate Sodium 2 tab 09/30/19 09:00 10/08/19 09:20 Senokot S PO Not Given BID CLARISA Sodium Bicarbonate 650 mg 10/02/19 23:57 10/03/19 00:08 Bicarbonate, Sodium PER TUBE 650 mg .PER PROTOCOL PRN Administration ENTERAL TUBE OCCLUSION Sodium Bicarbonate 650 mg 10/04/19 21:00 10/08/19 09:20 Bicarbonate, Sodium PO 650 mg BID CLARISA Administration Sodium Chloride 10 ml 09/30/19 09:00 10/08/19 09:20 Flush - Normal Saline IVF 10 ml Q12HR CLARISA Administration Sodium Chloride 0 ml 10/01/19 01:10 10/01/19 01:32 [place] Nasal [place] 0.65% EA NARE 2 spray TID PRN Administration Nasal Congestion Tetrahydrozoline HCl 1 drop 10/04/19 21:00 10/08/19 09:21 Visine Ac 0.05% Opth L EYE 1 drop BID CLARISA Administration - Exam General - other findings: intubated Eye: anicteric sclera ENT: normocephalic atraumatic, no oropharyngeal lesions Neck: supple, no JVD Heart: RRR, no murmur, no gallops, no rubs Respiratory: rales Respiratory - other findings: mild bilaterally Gastrointestinal: soft, non-tender, non-distended Extremities: no cyanosis, no clubbing Extremities - other findings: 3+ upper extremity edema Skin: normal turgor, no lesions, no rashes Hosp A/P - Plan Chest Xray 10/07; bilateral infiltrates with effusions ECHO 09/30: EF 55-60%, diastolic dysfunction, mildly dilated LA Small bowel Xray: no dilated loops of bowel. Progression of contrast into the colon noted This is 79 year old female who presented with severe intractable nausea and vomiting, treated for sepsis. Required intubation due to aspiration yesterday. Septic shock secondary to UTI vs pneumonia - patient was on meropenem due to E coli bacteremia. Urine culture growing gram negative eber, pending speciation - vanc added due to increasing leukocytosis and being intubated. WBC improved to 16 - blood cultures 2/2 E coli on 09/28, repeat blood cultures negative. Urine culture growing gram negative eber, pending speciation Severe bradycardia - currently on epinephrine. Appreciate card recs regarding switching to alternative pressor or not LISSET Hyponatremia - creatinine worsened to 2.70. Appreciate nephrology input. - urine output seems to have improved per nurse #Hypoglycemia #Type II Diabetes -blood sugar 46 start D5NS at 20/hour - d/c glargine #Ileus - small bowel X ray ordered and showed no ileus however patient aspirated feeds yesterday - currently on tube feeds to suction. Can likely restart today per GI #Anemia - Hb 8.1, will monitor DVT prophylaxis: lovenox Code status: full code
[2019-10-08] MEDS: Vancomycin HCl 750 MG in Sodium Chloride 0.9% 250 ML 250 ML IVPB SCH (14:53)
[2019-10-08] MEDS: Pravastatin Sodium 20 MG TAB PO SCH (20:29)
[2019-10-08] MEDS: Latanoprost 0.005% Ophth Soln 2.5 ml Bottle L EYE SCH (20:36)
[2019-10-08] MEDS ORDERED: Insulin Glargine 10 UNITS in Pre-Filled Syringe 1 EACH SC SCH (21:00)
[2019-10-09] MEDS: Metoclopramide HCl 10 MG/2 ML VIAL IVP SCH ×4 (00:02→23:17)
[2019-10-09] MEDS: Propofol 1,000 MG/100 ML VIAL IV PRN ×4 (02:30→18:53)
[2019-10-09] MEDS: MEROPENEM 1 GM/50 ML 1 GM in Premix Bag 1 BAG IVPB SCH ×2 (05:05→17:14)
--- NOTE | 2019-10-09 07:07 | PRG ---
DATE OF SERVICE: 10/08/2019 SUBJECTIVE: The patient was seen and examined, she was intubated. Noted with the following vital signs. OBJECTIVE: VITAL SIGNS: Blood pressure 172/70, pulse 74, respiratory rate of 13. HEENT: Remarkable for endotracheal tube in place. CARDIOVASCULAR: First and second heart sounds were heard. RESPIRATORY: Vented sounds. DIGESTIVE: Obese abdomen. EXTREMITIES: Some peripheral edema. LABORATORY INVESTIGATION: Hemoglobin of 8.2. Chemistry showed a creatinine of 2.70, BUN 41 sodium 132, bicarb of 19. IMPRESSION: 1. Qmnqi-ha-yvoyffo kidney disease. The patient seems to be maintaining improved urine output with improvement in the hemodynamics. 2. Hypervolemia. 3. Hyponatremia. 4. Metabolic acidosis. PLAN: 1. As the patient is beginning to diurese better now, will probably use p.r.n. diuretics and not hemodialysis at this point. However, if the renal function of this patient deteriorates and begins to hamper the progress of the clinical recovery of this patient, this modality of treatment might become indicated, but at this point, no emergent indication for such treatment. 2. Further management to be dependent on the clinical course. Job ID: [id number]
[2019-10-09] MEDS: HumaLOG 300 UNITS/3 ML VIAL SC PRN ×2 (08:30→21:11)
[2019-10-09] MEDS: Artificial Tears 18 DROP/0.9 ML EA EYE SCH ×2 (09:52→21:02)
[2019-10-09] MEDS: DorzolamidE/Timolol 2%/0.5% Ophth Soln 10 ml Bottle L EYE SCH ×2 (09:53→21:10)
[2019-10-09] MEDS: Aspirin Chewable 81 MG TAB PO SCH (09:53)
[2019-10-09] MEDS: Sodium Bicarbonate Tab 325 MG TAB PO SCH ×2 (09:54→21:09)
[2019-10-09] MEDS: Heparin 5,000 UNITS/ML VIAL SC SCH ×2 (09:54→21:06)
[2019-10-09] MEDS: Senokot S 8.6-50 MG TAB PO SCH ×2 (09:54→23:16)
[2019-10-09] MEDS: Famotidine 20 MG TAB PO SCH (09:54)
[2019-10-09] MEDS: Tetrahydrozoline 0.05% OPTH 15 ML BOT L EYE SCH ×2 (09:55→21:08)
[2019-10-09 10:33] LABS: White Blood Cell (WBC) Count 10.8 thou/uL (4.8-10.8)
[2019-10-09 10:51] LABS: Band 1 % (5-11); Eosinophils 3 % (0-10); Lymphocytes 16 % (21-51); MDiff Complete? YES; Mean Corpuscular HGB CONC 33.5 g/dL (32.0-36.0); Mean Corpuscular Hemoglobin 29.5 pg (27.0-31.0); Mean Platelet Volume 7.8 fL (7.4-10.4); Metamyelocyte 3 % (0-0); Monocytes 2 % (0-10); Neutrophil 75 % (42-75); Platelet Count 285 thou/uL (130-400); Platelet Morphology Comment Appears Adequate; RBC Distribution Width 13.8 % (11.5-14.5); RBC Morphology Normal; Red Blood Cell (RBC) Count 3.06 mill/uL (4.20-5.40)
[2019-10-09 10:58] LABS: Anion Gap 17 mmol/L (10-20); BUN (Urea Nitrogen) 39 mg/dL (9.8-20.1); Calc. Creatinine Clearance 26 mL/min (70-130); Calcium 7.9 mg/dL (7.8-10.44); Carbon Dioxide 17 mmol/L (23-31); Chloride 104 mmol/L (98-107); Estimated GFR-MDRD 20; Glucose 230 mg/dL (83-110); Potassium 5.5 mmol/L (3.5-5.1); Sodium 132 mmol/L (136-145)
[2019-10-09] MEDS ORDERED: Furosemide 20 MG/2 ML VIAL SLOW IVP SCH ×2 (12:30→15:45)
[2019-10-09] MEDS: Dextrose 5 % And 0.9 % NaCl 1,000 ML IV SCH (13:06)
--- NOTE | 2019-10-09 13:29 | PRG ---
DATE OF SERVICE: 10/09/2019 SUBJECTIVE: Ms. Mendoza remains sedated on the ventilator. OBJECTIVE: LUNGS: Her lungs have coarse breath sounds bilaterally. HEART: Regular rate and rhythm without murmur. ABDOMEN: Soft, nontender, and nondistended. Bowel sounds are present. EXTREMITIES: 1+ peripheral edema. LABORATORY DATA: White blood cell count 10.8, hemoglobin 9.0, platelets 285. Creatinine 2.37. IMPRESSION: 1. Aspiration pneumonia and respiratory failure, sedated on ventilator now. 2. Acute on chronic kidney disease. 3. Bacteremia secondary to resistant Escherichia coli from urinary tract origin. 4. She is tolerating tube feeds through the nasogastric tube well currently. RECOMMENDATIONS: 1. Continue NG tube feeds. 2. When she is able to extubate and again pass this swallowing evaluation, I would recommend a barium esophagogram to evaluate the esophagus and hiatal hernia prior to feeding. 3. In the meantime, I will sign off. Please call if GI can be of assistance. Job ID: [id number]
--- NOTE | 2019-10-09 14:34 | PDOC.HOSPP ---
- Subjective Encounter Date: 10/09/19 Encounter Time: 12:30 Subjective: F/u: aspiration pneumonia The patient is still intubated. Patient seems to have good urine output today - Objective Vital Signs & Weight: Vital Signs (12 hours) Temp Pulse Resp BP Pulse Ox 10/09/19 14:00 15 10/09/19 12:00 13 10/09/19 10:52 76 166/66 H 10/09/19 10:00 19 10/09/19 08:00 13 95 10/09/19 07:32 76 171/56 H 10/09/19 07:00 98.6 F 10/09/19 06:00 13 10/09/19 04:00 98.6 F 24 H 10/09/19 03:47 71 154/57 H Weight Admit Weight 167 lb 8 oz Weight 190 lb 7.67 oz Most Recent Monitor Data Heart Rate from ECG 74 NIBP 112/92 NIBP BP-Mean 98 Respiration from ECG 19 SpO2 89 I&O: 10/08/19 10/09/19 10/10/19 06:59 06:59 06:59 Intake Total 1296 1864.4 Output Total 815 1747 500 Balance 481 117.4 -500 Result Diagrams: 10/09/19 10:24 10/09/19 10:27 Additional Labs: Accuchecks 10/09/19 10/08/19 10/08/19 05:07 20:32 16:16 POC Glucose 191 H 114 H 78 10/08/19 10/07/19 13:03 20:45 POC Glucose 119 H 52 L* Hospitalist ROS - Medication Medications: Active Medications Generic Name Dose Route Start Last Admin Trade Name Freq PRN Reason Stop Dose Admin Lipase/Protease/Amylase 1 cap 10/02/19 23:57 10/03/19 00:08 Mack Gannon [id number] FS 1 cap .PER PROTOCOL PRN Administration TUBE OCCLUSION PROTOCOL Artificial Tears 1 drop 10/04/19 21:00 10/09/19 09:52 Tears Naturale EA EYE 1 drop BID CLARISA Administration Aspirin 81 mg 09/30/19 09:00 10/09/19 09:53 Aspirin Chewable PO 81 mg DAILY CLARISA Administration Dextrose/Water 25 gm 09/30/19 14:58 10/08/19 12:16 Dextrose 50% SLOW IVP 25 gm PRN PRN Administration Hypoglycemia Dorzolamide/Timolol 1 drop 10/05/19 21:00 10/09/19 09:53 Cosopt 2-0.5% Ophth Soln L EYE 1 drop BID CLARISA Administration Famotidine 20 mg 09/30/19 09:00 10/09/19 09:54 Pepcid PO 20 mg QAM CLARISA Administration Furosemide 20 mg 10/09/19 12:30 10/09/19 13:06 Lasix SLOW IVP 10/09/19 15:00 20 mg NOW CLARISA Administration Heparin Sodium (Porcine) 5,000 units 10/07/19 21:00 10/09/19 09:54 Heparin SC 5,000 units BID CLARISA Administration Meropenem 1 gm/ Device 50 mls @ 100 mls/hr 10/01/19 04:00 10/09/19 05:05 IVPB 50 mls 0400,1600 CLARISA Administration Norepinephrine Bitartrate 250 mls @ 0 mls/hr 10/06/19 14:15 10/06/19 14:53 Levophed IVPB 250 mls PRN PRN Administration To maintain MAP > 65 Protocol Titrate Epinephrine 2 mg/ Dextrose/ 252 mls @ 0 mls/hr 10/06/19 15:30 10/08/19 15:35 Water IVPB 252 mls INF CLARISA Administration Protocol Titrate Dextrose/Sodium Chloride 1,000 mls @ 20 mls/hr 10/08/19 14:00 10/09/19 13:06 D5 0.9% Ns IV 1,000 mls .Q24H CLARISA Administration Vancomycin HCl 750 mg/ Sodium 250 mls @ 250 mls/hr 10/08/19 15:00 10/08/19 14 :53 Chloride IVPB 250 mls 1500 CLARISA Administration Insulin Human Lispro 0 units 09/30/19 14:58 10/09/19 08:30 Humalog SC 6 units .MODERATE SLIDING SC PRN Administration Moderate Correctional Scale Latanoprost 1 drop 10/05/19 21:00 10/08/19 20:36 Xalatan 0.005% Ophth Soln L EYE 1 drop HS CLARISA Administration Lorazepam 2 mg 10/06/19 14:40 10/06/19 14:54 Ativan SLOW IVP 11/05/19 14:40 2 mg Q1H PRN Administration Breakthrough agitation Metoclopramide HCl 10 mg 10/04/19 15:30 10/09/19 07:34 Reglan IVP 10 mg Q8H CLARISA Administration Ondansetron HCl 4 mg 09/29/19 22:09 10/06/19 13:00 Zofran IVP 4 mg Q6H PRN Administration Nausea/Vomiting Pravastatin Sodium 20 mg 09/30/19 21:00 10/08/19 20:29 Pravachol PO 20 mg QPM CLARISA Administration Propofol 1,000 mg 10/06/19 14:40 10/09/19 12:13 Diprivan IV 11/05/19 14:40 1,000 mg INF PRN Administration TO ACHIEVE GOAL RASS Protocol Scopolamine 1.5 mg 10/08/19 09:00 10/08/19 09:18 Transderm Scop TD 1.5 mg Q3D CLARISA Administration Senna/Docusate Sodium 2 tab 09/30/19 09:00 10/09/19 09:54 Senokot S PO 2 tab BID CLARISA Administration Sodium Bicarbonate 650 mg 10/02/19 23:57 10/03/19 00:08 Bicarbonate, Sodium PER TUBE 650 mg .PER PROTOCOL PRN Administration ENTERAL TUBE OCCLUSION Sodium Bicarbonate 650 mg 10/04/19 21:00 10/09/19 09:54 Bicarbonate, Sodium PO 650 mg BID CLARISA Administration Sodium Chloride 10 ml 09/30/19 09:00 10/09/19 09:55 Flush - Normal Saline IVF 10 ml Q12HR CLARISA Administration Sodium Chloride 0 ml 10/01/19 01:10 10/01/19 01:32 [place] Nasal [place] 0.65% EA NARE 2 spray TID PRN Administration Nasal Congestion Sodium Polystyrene Sulfonate 30 gm 10/09/19 12:30 10/09/19 13:07 Kayexalate Oral Susp 15 Gm/60 Ml PO 10/09/19 16:00 30 gm NOW CLARISA Administration Tetrahydrozoline HCl 1 drop 10/04/19 21:00 10/09/19 09:55 Visine Ac 0.05% Opth L EYE 1 drop BID CLARISA Administration - Exam General Appearance: NAD, awake alert Eye: PERRL, anicteric sclera ENT: normocephalic atraumatic, no oropharyngeal lesions Neck: no JVD Heart: RRR, no murmur, no gallops, no rubs Respiratory: CTAB, no wheezes, no rales, no ronchi Gastrointestinal: soft, non-tender, non-distended, normal bowel sounds Extremities: no cyanosis, no clubbing, no edema Hosp A/P - Plan Chest Xray 10/07; bilateral infiltrates with effusions ECHO 09/30: EF 55-60%, diastolic dysfunction, mildly dilated LA Small bowel Xray: no dilated loops of bowel. Progression of contrast into the colon noted This is 79 year old female who presented with severe intractable nausea and vomiting, treated for sepsis. Required intubation due to aspiration Septic shock secondary to UTI vs pneumonia - patient was on meropenem due to E coli bacteremia. Urine culture growing gram negative eber, pending speciation - vanc added due to increasing leukocytosis and being intubated. WBC improved to 10. Continue for now Severe bradycardia - currently on epinephrine. Cardiology following Acute diastolic heart failure - has profound edema more in upper extremities, chest X ray 10/07 showed bilateral infiltrates. Will repeat chest X ray today - giving lasix 20 mg IV today - on epi drip as wel #LISSET - likely cardiorenal #Hyponatremia #Hyperkalemia - creatinine improved, sodium stable at 132 - potassium 5.5. Likely from fluid retention. Will check EKG, order kayexelate and lasix 20 mg IV x 1 #Hypoglycemia - resolved #Type II Diabetes -on low dose D5 maintenance fluids due to hypoglycemia #Ileus - small bowel X ray ordered and showed no ileus however patient aspirated feeds 10/06 - on tube feeds to suction #Anemia - Hb 9.0 will monitor DVT prophylaxis: lovenox Code status: full code
[2019-10-09 14:42] LABS: Vancomycin, Random 19.3 ug/mL (See Comment)
[2019-10-09] MEDS: Vancomycin HCl 750 MG in Sodium Chloride 0.9% 250 ML 250 ML IVPB SCH (14:48)
--- NOTE | 2019-10-09 15:27 | RAD ---
PORTABLE CHEST: Date: 10/09/2019 PROVIDED CLINICAL HISTORY: Respiratory insufficiency. FINDINGS: Comparison with 10/08/2019. The cardiac and mediastinal silhouette is unchanged in appearance. Endotracheal tube is again noted, the tip of which projects just proximal to the kosta and could be retracted several centimeters. Ent shari catheter is again noted, the tip of which is not well visualized. Persistent bibasilar pleural p arenchymal opacity, slightly worsened with respect to prior. No evidence for pneumothorax. Left subcl audrey central line is in similar position. IMPRESSION: Persistent and slightly increased in conspicuity bibasilar pleural parenchymal opacity. POS: CRISTELA
[2019-10-09 15:41] LABS: Actual Bicarbonate (HCO3a) 22.2 mEq/L (22-28); Base Excess (BEa) -2.9 mEq/L (-2.0 to +3.0); CO2 Tension 39.8 mmHg (35.0-45.0); Calcium, Ionized 1.13 mmol/L (1.12-1.30); Carboxyhemoglobin (COHb) 1.8 gm% (0.0-3.0); Hemoglobin (Hb) 7.9 g/dL (12.0-16.0); O2 Tension (PaO2) 78.2 mmHg (> 70.0); Potassium - ABG Lab 3.53 mmol/L (3.70-5.30); pH, Arterial 7.36 (7.35-7.45)
[2019-10-09 15:42] LABS: Puncture Site LRA
--- NOTE | 2019-10-09 15:51 | PRG ---
DATE OF SERVICE: 10/09/2019 SERVICE: Pulmonary Medicine. INTERVAL HISTORY: The patient is once again improving urine output. She has no complaints of chest discomfort, nausea, or vomiting. Otherwise, there has been no interval change to her condition. Blood pressures remain much improved. Her heart rate is elevated despite the fact epinephrine has been weaned off. PHYSICAL EXAMINATION: VITAL SIGNS: Afebrile, pulse 74, blood pressure 112/92, respirations 19, saturation 95% on 39% FiO2 with a PEEP of 5. GENERAL: Patient is intubated and sedated. HEENT: Normocephalic and atraumatic. Sclerae white. Conjunctivae pink. Oral mucosa is moist without lesions. LUNGS: Decent air entry. There is no prolonged expiratory phase. Crackles are not present. No wheezing or rhonchi appreciated. Crackles are present. Rhonchi improved. No wheezing. HEART: Normal rate, regular. ABDOMEN: Soft, nontender, nondistended. Bowel sounds positive. MUSCULOSKELETAL: No cyanosis or clubbing. There is no pitting in the bilateral lower extremities. NEUROLOGIC: Grossly nonfocal. LABORATORY DATA: WBC 10.8, hemoglobin 9.0, and platelets 285,000. Sodium 132 and stable. Potassium 5.5, is gently up trending. Creatinine has improved to 2.37. Basic metabolic profile is otherwise unremarkable. Blood sugar is currently 191. Lactate 7.9. Bacteria and yeast are in the urine. IMAGING: CXR shows bilateral pleural parenchymal opacifications. There are also bilateral effusions. There is pulmonary vascular congestion. Enteric catheter courses midline below the level of the diaphragm. There is an endotracheal tube at the level of the k[place]. All told, there is minimal improvement in aerated lung. ASSESSMENT: 1. Acute hypoxic respiratory failure. 2. Acute kidney injury on chronic kidney disease 4. 3. Acute on chronic diastolic heart failure. 4. Septic shock. 5. Bacteremia secondary to olivera resistant E coli. 6. Urinary tract infection secondary to gram-negative eber. 7. Abnormal Celia and gram-positive cocci in clusters, growing from sputum. DISCUSSION AND PLAN: The patient is doing great from respiratory standpoint. Hopefully, tomorrow, we can start reintroducing some Lasix to see if we can get her volume off. If she develops recurrence in bradyarrhythmia, epinephrine will be restarted despite whatever blood pressure she has. Critical Care will continue to follow along. CRITICAL CARE TIME: 30 minutes. Job ID: [id number] MTDD
--- NOTE | 2019-10-09 20:40 | PRG ---
DATE OF SERVICE: 10/09/2019 SUBJECTIVE: The patient was seen and examined, noted with the following vital signs. OBJECTIVE: VITAL SIGNS: Pulse of 69, blood pressure 115/64, respiratory rate of 16, O2 saturation of 93%. HEENT: Remarkable for endotracheal tube in place. CARDIOVASCULAR: First and second heart sounds were heard. RESPIRATORY: Revealed vented sounds. DIGESTIVE SYSTEM: Revealed an obese abdomen. EXTREMITIES: Showed some peripheral edema. LABORATORY INVESTIGATION: Showed hemoglobin of 9.0. Chemistry showed creatinine down to 2.37 with BUN of 39, potassium 5.5, and sodium of 132. IMPRESSION: 1. [id number] kidney disease, which seems to be improving with improvement in the patient's hemodynamics. 2. Hyperkalemia. 3. Hyponatremia. PLAN: 1. We will continue with current renal supportive measures. 2. Pay very close attention to this patient's potassium level and treat accordingly. 3. Further management to be dependent on the clinical course. Job ID: [id number]
--- NOTE | 2019-10-09 20:54 | EKG ---
Test Reason : Blood Pressure : / mmHG Vent. Rate : 070 BPM Atrial Rate : 070 BPM P-R Int : 166 ms QRS Dur : 090 ms QT Int : 368 ms P-R-T Axes : 074 075 101 degrees QTc Int : 397 ms Normal sinus rhythm Low voltage QRS Nonspecific T wave abnormality Abnormal ECG When compared with ECG of 29-SEP-2019 19:06, Vent. rate has decreased BY 37 BPM Nonspecific T wave abnormality now evident in Inferior leads Nonspecific T wave abnormality, worse in Anterolateral leads Confirmed by Brandon VOGT ([id number]) on 10/09/2019 8:54:38 PM Referred By: Confirmed By:Brandon VOGT
[2019-10-09] MEDS: Latanoprost 0.005% Ophth Soln 2.5 ml Bottle L EYE SCH (21:06)
[2019-10-09] MEDS: Pravastatin Sodium 20 MG TAB PO SCH (21:09)
[2019-10-10] MEDS: Furosemide 40 MG/4 ML VIAL SLOW IVP SCH (05:01)
[2019-10-10] MEDS: MEROPENEM 1 GM/50 ML 1 GM in Premix Bag 1 BAG IVPB SCH ×2 (05:01→15:07)
[2019-10-10 05:25] LABS: Hemoglobin 8.2 g/dL (12.0-16.0); Mean Corpuscular HGB CONC 35.2 g/dL (32.0-36.0); Mean Corpuscular Hemoglobin 30.9 pg (27.0-31.0); Mean Corpuscular Volume 87.8 fL (78.0-98.0); Mean Platelet Volume 7.7 fL (7.4-10.4); Platelet Count 297 thou/uL (130-400); RBC Distribution Width 13.5 % (11.5-14.5); Red Blood Cell (RBC) Count 2.65 mill/uL (4.20-5.40); White Blood Cell (WBC) Count 10.4 thou/uL (4.8-10.8)
[2019-10-10 05:52] LABS: ALT (SGPT) 16 U/L (8-55); AST (SGOT) 40 U/L (5-34); Alkaline Phosphatase 122 U/L (40-110); Anion Gap 13 mmol/L (10-20); BUN (Urea Nitrogen) 37 mg/dL (9.8-20.1); Bilirubin, Total 0.2 mg/dL (0.2-1.2); Calc. Creatinine Clearance 31 mL/min (70-130); Calcium 8.1 mg/dL (7.8-10.44); Carbon Dioxide 24 mmol/L (23-31); Chloride 102 mmol/L (98-107); Estimated GFR-MDRD 24; Globulin 3.7 g/dL (2.4-3.5); Glucose 224 mg/dL (83-110); Phosphorus 4.8 mg/dL (2.3-4.7); Potassium 3.5 mmol/L (3.5-5.1); Protein, Total 5.7 g/dL (6.0-8.3); Sodium 135 mmol/L (136-145)
[2019-10-10] MEDS: HumaLOG 300 UNITS/3 ML VIAL SC PRN ×5 (06:14→23:25)
--- NOTE | 2019-10-10 08:08 | PRG ---
DATE OF SERVICE: 10/10/2019 SERVICE: Pulmonary Medicine. INTERVAL HISTORY: The patient is doing good from respiratory standpoint. Finally, she started open it up and making urine. She cannot provide any additional elements of the history. She requires sedation in order to maintain comfort and prevent her from having significant dyssynchrony with the ventilator. Otherwise, there has been no interval change to her condition. PHYSICAL EXAMINATION: VITAL SIGNS: Afebrile, pulse 72, blood pressure 163/107, respirations 20, saturations 93%, currently on 37% FiO2 and a PEEP of 5. GENERAL: The patient is intubated and sedated. HEENT: Normocephalic and atraumatic. Sclerae white. Conjunctivae pink. Oral mucosa is moist without lesions. LUNGS: Decent air entry. Crackles are present. Decreased air entry at the bibasilar regions. No prolonged expiratory phase present at this point. HEART: Normal rate and regular. ABDOMEN: Soft, nontender, and nondistended. Bowel sounds are positive. MUSCULOSKELETAL: No cyanosis or clubbing. No pitting in the bilateral lower extremities. NEUROLOGIC: Grossly nonfocal. LABORATORY DATA: WBC 10.4, hemoglobin 8.2, and platelets 297,000. Creatinine 2.02 and gently downtrending. Basic metabolic profile is otherwise unremarkable. Liver function studies are also unremarkable. Respiratory culture is growing Celia albicans. Gram-negative eber is in the urine. Blood culture x2 are growing E. coli, which is fairly resistant or species. Repeat blood cultures x2 on the are unremarkable. Repeat respiratory culture was negative, but there was significant gram-positive cocci in clusters present. ASSESSMENT: 1. Acute hypoxic respiratory failure, improving. 2. Acute kidney injury on chronic kidney disease 4, resolving. 3. Acute on chronic diastolic heart failure. 4. Septic shock. 5. Bacteremia secondary to olivera-resistant escherichia coli. 6. Urinary tract infection secondary to gram-negative eber. 7. Abnormal Celia and gram-positive cocci in clusters in sputum. DISCUSSION AND PLAN: The patient is doing great from respiratory standpoint. 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 We will continue to diurese her through time. Once her oxygen requirements are slightly better, we will likely proceed with spontaneous breathing trial, and possible extubation, though she has been on mechanical ventilator for 4 days at this time. CRITICAL CARE TIME: 30 minutes. Job ID: [id number]
[2019-10-10] MEDS: Sodium Bicarbonate Tab 325 MG TAB PO SCH ×2 (08:40→20:17)
[2019-10-10] MEDS: Aspirin Chewable 81 MG TAB PO SCH (08:40)
[2019-10-10] MEDS: Heparin 5,000 UNITS/ML VIAL SC SCH ×2 (08:40→20:16)
[2019-10-10] MEDS: DorzolamidE/Timolol 2%/0.5% Ophth Soln 10 ml Bottle L EYE SCH ×2 (08:45→20:16)
--- NOTE | 2019-10-10 08:48 | RAD ---
PORTABLE CHEST: HISTORY: Intubation. CCU followup. COMPARISON: 10/09/2019. FINDINGS: There are bilateral infiltrates. Confluent infiltrate in the right mid lung and perihilar region ext ending into the right lower lobe. Left lower lobe infiltrate and atelectasis. Bilateral effusions. ET tube and NG Tube remain in place. IMPRESSION: Bilateral infiltrates and bilateral effusions, not significantly changed from yesterday. POS: [facility]
[2019-10-10] MEDS: Senokot S 8.6-50 MG TAB PO SCH ×2 (08:52→20:17)
[2019-10-10] MEDS: Tetrahydrozoline 0.05% OPTH 15 ML BOT L EYE SCH ×2 (09:03→20:17)
[2019-10-10] MEDS: Artificial Tears 18 DROP/0.9 ML EA EYE SCH ×2 (09:05→20:16)
[2019-10-10] MEDS: hydrALAZINE 20 MG/ML VIAL SLOW IVP PRN ×2 (09:30→21:11)
[2019-10-10] MEDS: Metoclopramide HCl 10 MG/2 ML VIAL IVP SCH ×3 (09:30→22:36)
[2019-10-10] MEDS: Propofol 1,000 MG/100 ML VIAL IV PRN ×2 (11:19→23:56)
--- NOTE | 2019-10-10 13:04 | PDOC.HOSPP ---
- Subjective Encounter Date: 10/10/19 Encounter Time: 13:02 Subjective: The patient is still intubated. She is diuresing well. Currently sedated - Objective Vital Signs & Weight: Vital Signs (12 hours) Temp Pulse Resp BP Pulse Ox 10/10/19 12:00 97.7 F 12 10/10/19 11:15 69 135/52 L 10/10/19 10:00 13 10/10/19 09:30 87 182/114 H 10/10/19 08:00 97.5 F L 15 93 L 10/10/19 07:03 72 163/107 H 10/10/19 06:00 14 10/10/19 04:00 97.7 F 15 10/10/19 02:00 11 L 10/10/19 01:40 68 Weight Admit Weight 167 lb 8 oz Weight 190 lb 0.615 oz Most Recent Monitor Data Heart Rate from ECG 64 NIBP 140/49 NIBP BP-Mean 79 Respiration from ECG 17 SpO2 98 I&O: 10/09/19 10/10/19 10/11/19 06:59 06:59 06:59 Intake Total 1864.4 2235 120 Output Total 1747 3170 840 Balance 117.4 -935 -720 Result Diagrams: 10/10/19 05:10 10/10/19 05:10 Additional Labs: Accuchecks 10/10/19 10/09/19 10/09/19 00:32 21:00 16:23 POC Glucose 161 H 216 H 131 H 10/09/19 12:48 POC Glucose 143 H Hospitalist ROS - Review of Systems Constitutional: denies: fever, chills - Medication Medications: Active Medications Generic Name Dose Route Start Last Admin Trade Name Freq PRN Reason Stop Dose Admin Lipase/Protease/Amylase 1 cap 10/02/19 23:57 10/03/19 00:08 [place] G[place] [id number] FS 1 cap .PER PROTOCOL PRN Administration TUBE OCCLUSION PROTOCOL Artificial Tears 1 drop 10/04/19 21:00 10/10/19 09:05 Tears Naturale EA EYE 1 drop BID CLARISA Administration Aspirin 81 mg 09/30/19 09:00 10/10/19 08:40 Aspirin Chewable PO 81 mg DAILY CLARISA Administration Dextrose/Water 25 gm 09/30/19 14:58 10/08/19 12:16 Dextrose 50% SLOW IVP 25 gm PRN PRN Administration Hypoglycemia Dorzolamide/Timolol 1 drop 10/05/19 21:00 10/10/19 08:45 Cosopt 2-0.5% Ophth Soln L EYE 1 drop BID CLARISA Administration Furosemide 40 mg 10/10/19 06:00 10/10/19 05:01 Lasix SLOW IVP 40 mg 0600 CLARISA Administration Furosemide 40 mg 10/10/19 14:00 10/10/19 13:00 Lasix SLOW IVP 10/10/19 16:00 40 mg 1400 CLARISA Administration Heparin Sodium (Porcine) 5,000 units 10/07/19 21:00 10/10/19 08:40 Heparin SC 5,000 units BID CLARISA Administration Hydralazine HCl 10 mg 10/02/19 23:00 10/10/19 09:30 Apresoline SLOW IVP 10 mg Q4H PRN Administration SBP Greater Than 170 Meropenem 1 gm/ Device 50 mls @ 100 mls/hr 10/01/19 04:00 10/10/19 05:01 IVPB 50 mls 0400,1600 CLARISA Administration Norepinephrine Bitartrate 250 mls @ 0 mls/hr 10/06/19 14:15 10/06/19 14:53 Levophed IVPB 250 mls PRN PRN Administration To maintain MAP > 65 Protocol Titrate Dextrose/Sodium Chloride 1,000 mls @ 20 mls/hr 10/08/19 14:00 10/09/19 13:06 D5 0.9% Ns IV 1,000 mls .Q24H CLARISA Administration Vancomycin HCl 750 mg/ Sodium 250 mls @ 250 mls/hr 10/08/19 15:00 10/09/19 14 :48 Chloride IVPB 250 mls 1500 CLARISA Administration Insulin Human Lispro 0 units 09/29/19 22:09 10/09/19 21:11 Humalog SC 2 unit .BEDTIME SLIDING SC PRN Administration Bedtime Correctional Scale Insulin Human Lispro 0 units 09/30/19 14:58 10/10/19 11:26 Humalog SC 2 units .MODERATE SLIDING SC PRN Administration Moderate Correctional Scale Latanoprost 1 drop 10/05/19 21:00 10/09/19 21:06 Xalatan 0.005% Ophth Soln L EYE 1 drop HS CLARISA Administration Lorazepam 2 mg 10/06/19 14:40 10/06/19 14:54 Ativan SLOW IVP 11/05/19 14:40 2 mg Q1H PRN Administration Breakthrough agitation Metoclopramide HCl 10 mg 10/04/19 15:30 10/10/19 09:30 Reglan IVP 10 mg Q8H CLARISA Administration Ondansetron HCl 4 mg 09/29/19 22:09 10/06/19 13:00 Zofran IVP 4 mg Q6H PRN Administration Nausea/Vomiting Pravastatin Sodium 20 mg 09/30/19 21:00 10/09/19 21:09 Pravachol PO 20 mg QPM CLARISA Administration Propofol 1,000 mg 10/06/19 14:40 10/10/19 11:19 Diprivan IV 11/05/19 14:40 1,000 mg INF PRN Administration TO ACHIEVE GOAL RASS Protocol Scopolamine 1.5 mg 10/08/19 09:00 10/08/19 09:18 Transderm Scop TD 1.5 mg Q3D CLARISA Administration Senna/Docusate Sodium 2 tab 09/30/19 09:00 10/10/19 08:52 Senokot S PO Not Given BID CLARISA Sodium Bicarbonate 650 mg 10/02/19 23:57 10/03/19 00:08 Bicarbonate, Sodium PER TUBE 650 mg .PER PROTOCOL PRN Administration ENTERAL TUBE OCCLUSION Sodium Bicarbonate 650 mg 10/04/19 21:00 10/10/19 08:40 Bicarbonate, Sodium PO 650 mg BID CLARISA Administration Sodium Chloride 10 ml 09/30/19 09:00 10/10/19 08:52 Flush - Normal Saline IVF 10 ml Q12HR CLARISA Administration Sodium Chloride 0 ml 10/01/19 01:10 10/01/19 01:32 [place] Nasal [place] 0.65% EA NARE 2 spray TID PRN Administration Nasal Congestion Tetrahydrozoline HCl 1 drop 10/04/19 21:00 10/10/19 09:03 Visine Ac 0.05% Opth L EYE 1 drop BID CLARISA Administration - Exam General - other findings: intubated Eye: anicteric sclera ENT: normocephalic atraumatic, no oropharyngeal lesions Neck: no JVD Heart: RRR, no murmur, no gallops, no rubs Respiratory - other findings: bilateral crackles Gastrointestinal: soft, non-tender, non-distended, normal bowel sounds Extremities: no cyanosis Extremities - other findings: improving bilateral edema Skin: normal turgor, no lesions, no rashes Neurological: cranial nerve grossly intact, normal sensation to touch, no focal deficits, no new deficit Hosp A/P - Plan Chest Xray 10/07; bilateral infiltrates with effusions ECHO 09/30: EF 55-60%, diastolic dysfunction, mildly dilated LA Small bowel Xray: no dilated loops of bowel. Progression of contrast into the colon noted This is 79 year old female who presented with severe intractable nausea and vomiting, treated for sepsis. Required intubation due to aspiration Septic shock secondary to UTI vs pneumonia - patient was on meropenem due to E coli bacteremia. Urine culture growing gram negative eber, pending speciation - vanc added due to increasing leukocytosis and being intubated. WBC improved to 10. Continue vanc and meropenem Severe bradycardia - epi drip stopped Acute diastolic heart failure - has profound edema more in upper extremities, chest X ray 10/07 showed bilateral infiltrates. Repeat X ray showing effusions still - on lasix 40 mg IV BID #LISSET - likely cardiorenal #Hyponatremia - creatinine improved to 2.02 #Hypoglycemia - resolved #Type II Diabetes -on low dose D5 maintenance fluids due to hypoglycemia #Ileus - small bowel X ray ordered and showed no ileus however patient aspirated feeds 10/06 - on tube feeds to suction #Anemia - Hb 9.0 will monitor DVT prophylaxis: lovenox Code status: full code
[2019-10-10] MEDS: Dextrose 5 % And 0.9 % NaCl 1,000 ML IV SCH (13:07)
[2019-10-10] MEDS ORDERED: Furosemide 40 MG/4 ML VIAL SLOW IVP SCH (14:00)
[2019-10-10 14:28] LABS: Vancomycin, Trough 23.1 ug/mL
[2019-10-10] MEDS: Vancomycin HCl 500 MG in Sodium Chloride 0.9% 100 ML IVPB SCH (16:33)
--- NOTE | 2019-10-10 20:08 | PRG ---
DATE OF SERVICE: 10/10/2019 SUBJECTIVE: The patient was seen and examined, still on life support. Noted with the following vital signs. OBJECTIVE: VITAL SIGNS: Blood pressure , FiO2 of 37, pulse of 74, O2 saturation of 98%. HEENT: Remarkable for endotracheal tube in place. CARDIOVASCULAR: First and second heart sounds were heard. RESPIRATORY: Revealed vented sounds. DIGESTIVE: Revealed obese abdomen. EXTREMITIES: Showed some peripheral edema. SKIN: No new gross rash. LABORATORY INVESTIGATION: Showed a creatinine down to 2.02, BUN of 37. IMPRESSION: 1. Cardiopulmonary failure, on life support. 2. Acute on chronic kidney disease with improvement. 3. Hypervolemia. PLAN: 1. Continue current renal supportive measures. 2. P.r.n. diuresis. 3. Further management to be dependent on the clinical course. Job ID: [id number]
[2019-10-10] MEDS: Latanoprost 0.005% Ophth Soln 2.5 ml Bottle L EYE SCH (20:16)
[2019-10-10] MEDS: Pravastatin Sodium 20 MG TAB PO SCH (20:17)
[2019-10-10] MEDS: Vancomycin HCl 750 MG in Sodium Chloride 0.9% 250 ML 250 ML IVPB SCH (22:42)
[2019-10-11] MEDS: MEROPENEM 1 GM/50 ML 1 GM in Premix Bag 1 BAG IVPB SCH ×2 (03:09→15:02)
[2019-10-11 04:49] LABS: Hemoglobin 8.3 g/dL (12.0-16.0); Mean Corpuscular HGB CONC 33.1 g/dL (32.0-36.0); Mean Corpuscular Hemoglobin 29.7 pg (27.0-31.0); Mean Corpuscular Volume 89.6 fL (78.0-98.0); Mean Platelet Volume 8.1 fL (7.4-10.4); Platelet Count 292 thou/uL (130-400); RBC Distribution Width 13.7 % (11.5-14.5); Red Blood Cell (RBC) Count 2.81 mill/uL (4.20-5.40)
[2019-10-11 05:09] LABS: Anion Gap 13 mmol/L (10-20); BUN (Urea Nitrogen) 39 mg/dL (9.8-20.1); Calc. Creatinine Clearance 36 mL/min (70-130); Calcium 8.5 mg/dL (7.8-10.44); Carbon Dioxide 26 mmol/L (23-31); Chloride 103 mmol/L (98-107); Estimated GFR-MDRD 28; Glucose 180 mg/dL (83-110); Phosphorus 4.4 mg/dL (2.3-4.7); Potassium 3.6 mmol/L (3.5-5.1); Sodium 138 mmol/L (136-145)
[2019-10-11] MEDS: HumaLOG 300 UNITS/3 ML VIAL SC PRN ×4 (05:12→20:29)
[2019-10-11] MEDS: Furosemide 40 MG/4 ML VIAL SLOW IVP SCH (05:12)
[2019-10-11] MEDS: Sodium Bicarbonate Tab 325 MG TAB PO SCH ×2 (08:41→20:32)
[2019-10-11] MEDS: Senokot S 8.6-50 MG TAB PO SCH ×2 (08:41→20:32)
[2019-10-11] MEDS: Aspirin Chewable 81 MG TAB PO SCH (08:41)
[2019-10-11] MEDS: Metoclopramide HCl 10 MG/2 ML VIAL IVP SCH ×2 (08:41→15:02)
[2019-10-11] MEDS: Heparin 5,000 UNITS/ML VIAL SC SCH ×2 (08:42→20:28)
[2019-10-11] MEDS: Scopolamine 1.5 mg/72 hour Patch TD SCH (08:42)
--- NOTE | 2019-10-11 08:45 | PRG ---
DATE OF SERVICE: 10/11/2019 35 minutes critical care time. SUBJECTIVE: The patient remains intubated on mechanical ventilation. She is awake. She seems to respond to commands in [place]. OBJECTIVE: VITAL SIGNS: Her temperature is 98.1, pulse 64, blood pressure 151/56 O2 saturation 100%. A 24-hour intake 1867, output 2645. Weight 188 pounds. HEENT: Unremarkable. NECK: No adenopathy or JVD. LUNGS: Clear anteriorly. CARDIOVASCULAR: S1 and S2, regular without murmur. ABDOMEN: Soft. EXTREMITIES: No edema. LABORATORY DATA: White blood cell count 8, hematocrit 25.1, and platelet count 292. Sodium 138, potassium 3.6, chloride 103, CO2 of 26, BUN 39, creatinine 1.7, glucose 180. She has cultures that are growing out Celia albicans from sputum and E coli from the urine. My thinking is the Celia albicans probably a contaminant. She is currently on vancomycin. I will have to check and see why she is on that. ASSESSMENT: 1. Acute respiratory failure, requiring mechanical ventilation. 2. Escherichia coli urosepsis. 3. Chronic kidney disease. 4. Acute on chronic diastolic heart failure. PLAN: I will go ahead and trial her pressure support breathing. We will stop her propofol and observe pressure support to the point where we can extubate her in the next day or so. I reviewed the other orders in her chart and I tried to clean some of the unnecessary medications of her MAR. Job ID: [id number]
[2019-10-11] MEDS: Tetrahydrozoline 0.05% OPTH 15 ML BOT L EYE SCH ×2 (08:54→20:31)
[2019-10-11] MEDS: Artificial Tears 18 DROP/0.9 ML EA EYE SCH ×2 (08:55→20:36)
[2019-10-11] MEDS: DorzolamidE/Timolol 2%/0.5% Ophth Soln 10 ml Bottle L EYE SCH ×2 (08:55→20:30)
[2019-10-11] MEDS: hydrALAZINE 20 MG/ML VIAL SLOW IVP PRN ×2 (09:15→14:50)
--- NOTE | 2019-10-11 12:48 | PDOC.HOSPP ---
- Subjective Encounter Date: 10/11/19 Encounter Time: 11:00 Subjective: The patient is currently weaned off sedation. She is following commands in [place] and moves all her extremities. NOt able to verbalize. Trying to see if she is extubatable today - Objective Vital Signs & Weight: Vital Signs (12 hours) Temp Pulse Resp BP Pulse Ox 10/11/19 10:29 68 135/51 L 10/11/19 09:15 85 181/69 H 10/11/19 08:00 97.7 F 98 10/11/19 07:41 74 147/55 H 10/11/19 06:00 13 10/11/19 04:00 11 L 10/11/19 03:00 98.1 F 10/11/19 02:01 79 10/11/19 02:00 9 L Weight Admit Weight 167 lb 8 oz Weight 188 lb 7.924 oz Most Recent Monitor Data Heart Rate from ECG 76 NIBP 173/67 NIBP BP-Mean 102 Respiration from ECG 15 SpO2 100 I&O: 10/10/19 10/11/19 10/12/19 06:59 06:59 06:59 Intake Total 2235 1867 60 Output Total 2265 2645 610 Balance -935 -778 -550 Result Diagrams: 10/11/19 03:39 10/11/19 03:39 Additional Labs: Accuchecks 10/11/19 10/10/19 10/10/19 08:10 23:27 20:19 POC Glucose 174 H 220 H 168 H 10/10/19 10/10/19 15:33 08:51 POC Glucose 159 H 169 H Hospitalist ROS - Review of Systems Constitutional: denies: fever, chills, sweats - Medication Medications: Active Medications Generic Name Dose Route Start Last Admin Trade Name Freq PRN Reason Stop Dose Admin Lipase/Protease/Amylase 1 cap 10/02/19 23:57 10/03/19 00:08 Mack Gannon [id number] FS 1 cap .PER PROTOCOL PRN Administration TUBE OCCLUSION PROTOCOL Artificial Tears 1 drop 10/04/19 21:00 10/11/19 08:55 Tears Naturale EA EYE 1 drop BID CLARISA Administration Aspirin 81 mg 09/30/19 09:00 10/11/19 08:41 Aspirin Chewable PO 81 mg DAILY CLARISA Administration Dextrose/Water 25 gm 09/30/19 14:58 10/08/19 12:16 Dextrose 50% SLOW IVP 25 gm PRN PRN Administration Hypoglycemia Dorzolamide/Timolol 1 drop 10/05/19 21:00 10/11/19 08:55 Cosopt 2-0.5% Ophth Soln L EYE 1 drop BID CLARISA Administration Furosemide 40 mg 10/10/19 06:00 10/11/19 05:12 Lasix SLOW IVP 40 mg 0600 CLARISA Administration Heparin Sodium (Porcine) 5,000 units 10/07/19 21:00 10/11/19 08:42 Heparin SC 5,000 units BID CLARISA Administration Hydralazine HCl 10 mg 10/02/19 23:00 10/11/19 09:15 Apresoline SLOW IVP 10 mg Q4H PRN Administration SBP Greater Than 170 Meropenem 1 gm/ Device 50 mls @ 100 mls/hr 10/01/19 04:00 10/11/19 03:09 IVPB 50 mls 0400,1600 CLARISA Administration Dextrose/Sodium Chloride 1,000 mls @ 20 mls/hr 10/08/19 14:00 10/10/19 13:07 D5 0.9% Ns IV 1,000 mls .Q24H CLARISA Administration Vancomycin HCl 500 mg/ Sodium 100 mls @ 100 mls/hr 10/10/19 16:00 10/10/19 16 :33 Chloride IVPB 100 mls 1600 CLARISA Administration Insulin Human Lispro 0 units 09/29/19 22:09 10/10/19 23:25 Humalog SC 2 unit .BEDTIME SLIDING SC PRN Administration Bedtime Correctional Scale Insulin Human Lispro 0 units 09/30/19 14:58 10/11/19 08:42 Humalog SC 2 units .MODERATE SLIDING SC PRN Administration Moderate Correctional Scale Latanoprost 1 drop 10/05/19 21:00 10/10/19 20:16 Xalatan 0.005% Ophth Soln L EYE 1 drop HS CLARISA Administration Lorazepam 2 mg 10/06/19 14:40 10/06/19 14:54 Ativan SLOW IVP 11/05/19 14:40 2 mg Q1H PRN Administration Breakthrough agitation Metoclopramide HCl 10 mg 10/04/19 15:30 10/11/19 08:41 Reglan IVP 10 mg Q8H CLARISA Administration Morphine Sulfate 2 mg 10/06/19 14:40 10/11/19 12:40 Morphine SLOW IVP 11/05/19 14:40 2 mg Q1H PRN Administration BREAKTHROUGH PAIN/Agitation Ondansetron HCl 4 mg 09/29/19 22:09 10/06/19 13:00 Zofran IVP 4 mg Q6H PRN Administration Nausea/Vomiting Pravastatin Sodium 20 mg 09/30/19 21:00 10/10/19 20:17 Pravachol PO 20 mg QPM CLARISA Administration Scopolamine 1.5 mg 10/08/19 09:00 10/11/19 08:42 Transderm Scop TD 1.5 mg Q3D CLARISA Administration Senna/Docusate Sodium 2 tab 09/30/19 09:00 10/11/19 08:41 Senokot S PO Not Given BID [facility] Sodium Bicarbonate 650 mg 10/02/19 23:57 10/03/19 00:08 Bicarbonate, Sodium PER TUBE 650 mg .PER PROTOCOL PRN Administration ENTERAL TUBE OCCLUSION Sodium Bicarbonate 650 mg 10/04/19 21:00 10/11/19 08:41 Bicarbonate, Sodium PO 650 mg BID CLARISA Administration Sodium Chloride 10 ml 09/30/19 09:00 10/11/19 08:44 Flush - Normal Saline IVF 10 ml Q12HR CLARISA Administration Sodium Chloride 0 ml 10/01/19 01:10 10/01/19 01:32 [place] Nasal [place] 0.65% EA NARE 2 spray TID PRN Administration Nasal Congestion Tetrahydrozoline HCl 1 drop 10/04/19 21:00 10/11/19 08:54 Visine Ac 0.05% Opth L EYE 1 drop BID CLARISA Administration - Exam General - other findings: intubated, off sedation, follows commands in [place]: PERRL, anicteric sclera ENT: normocephalic atraumatic, no oropharyngeal lesions Neck: supple, symmetric, no JVD, no thyromegaly Heart: RRR, no murmur, no gallops, no rubs Respiratory - other findings: bilateral rales Gastrointestinal: soft, non-tender, non-distended Extremities: no cyanosis, no clubbing, 2+ LE edema Skin: normal turgor, no lesions, no rashes Neurological: cranial nerve grossly intact, normal sensation to touch, no focal deficits, no new deficit Hosp A/P - Plan Chest Xray 10/07; bilateral infiltrates with effusions ECHO 09/30: EF 55-60%, diastolic dysfunction, mildly dilated LA Small bowel Xray: no dilated loops of bowel. Progression of contrast into the colon noted This is 79 year old female who presented with severe intractable nausea and vomiting, treated for sepsis. Required intubation due to aspiration Septic shock secondary to UTI vs pneumonia - patient was on meropenem due to E coli bacteremia. Urine culture growing gram negative eber - vanc added due to increasing leukocytosis and being intubated. WBC improved to 8. Continue vanc day 3 and meropenem D8 Severe bradycardia - epi drip stopped Acute diastolic heart failure - has profound edema more in upper extremities, chest X ray 10/07 showed bilateral infiltrates. Repeat X ray showing effusions still - on lasix 40 mg IV daily #LISSET - likely cardiorenal #Hyponatremia - creatinine improved to 1.73 #Hypoglycemia - resolved #Type II Diabetes -on low dose D5 maintenance fluids due to hypoglycemia #Ileus - small bowel X ray ordered and showed no ileus however patient aspirated feeds 10/06 - on tube feeds to suction #Anemia - Hb 9.0 will monitor Dispo: decide on possible extubation today DVT prophylaxis: lovenox Code status: full code
[2019-10-11] MEDS: Dextrose 5 % And 0.9 % NaCl 1,000 ML IV SCH (13:18)
[2019-10-11] MEDS: Vancomycin HCl 500 MG in Sodium Chloride 0.9% 100 ML IVPB SCH (15:02)
--- NOTE | 2019-10-11 18:59 | PRG ---
DATE OF SERVICE: 10/11/2019 SUBJECTIVE: The patient was seen and examined, still on life support. Noted with the following vital signs. OBJECTIVE: VITAL SIGNS: Blood pressure pulse 78, respiratory rate of 16, O2 saturations are 99%. HEENT: Remarkable for endotracheal tube in place. CARDIOVASCULAR SYSTEM: First and second heart sounds were heard. RESPIRATORY SYSTEM: Revealed vented sounds. DIGESTIVE SYSTEM: Revealed an obese abdomen. EXTREMITIES: Showed upper extremity peripheral edema. LABORATORY INVESTIGATION: Significant for creatinine down to 1.71. IMPRESSION: 1. The patient seems to be in acute on chronic kidney disease, seems to be maintaining sustained clinical improvement. 2. Cardiopulmonary failure, on life support. 3. Hypervolemia. PLAN: 1. Continue current renal supportive measures hemodynamics. 2. Renally dose all medications. 3. P.r.n. diuretics. Job ID: [id number]
[2019-10-11] MEDS: Latanoprost 0.005% Ophth Soln 2.5 ml Bottle L EYE SCH (20:27)
[2019-10-11] MEDS: Pravastatin Sodium 20 MG TAB PO SCH (20:32)
[2019-10-11] MEDS: Ondansetron PF 4 MG/2 ML Vial IVP PRN (20:37)
[2019-10-12] MEDS: Metoclopramide HCl 10 MG/2 ML VIAL IVP SCH ×4 (00:08→23:05)
[2019-10-12] MEDS: HumaLOG 300 UNITS/3 ML VIAL SC PRN ×5 (00:09→20:43)
[2019-10-12] MEDS: hydrALAZINE 20 MG/ML VIAL SLOW IVP PRN ×3 (02:19→23:05)
[2019-10-12] MEDS: MEROPENEM 1 GM/50 ML 1 GM in Premix Bag 1 BAG IVPB SCH ×2 (04:28→16:13)
[2019-10-12 04:44] LABS: Hemoglobin 8.5 g/dL (12.0-16.0); Mean Corpuscular HGB CONC 33.2 g/dL (32.0-36.0); Mean Corpuscular Hemoglobin 29.9 pg (27.0-31.0); Mean Corpuscular Volume 90.1 fL (78.0-98.0); Platelet Count 285 thou/uL (130-400); RBC Distribution Width 13.7 % (11.5-14.5); Red Blood Cell (RBC) Count 2.83 mill/uL (4.20-5.40); White Blood Cell (WBC) Count 7.3 thou/uL (4.8-10.8)
[2019-10-12] MEDS: Furosemide 40 MG/4 ML VIAL SLOW IVP SCH (05:06)
[2019-10-12 05:08] LABS: Anion Gap 10 mmol/L (10-20); BUN (Urea Nitrogen) 35 mg/dL (9.8-20.1); Calc. Creatinine Clearance 45 mL/min (70-130); Calcium 8.9 mg/dL (7.8-10.44); Carbon Dioxide 31 mmol/L (23-31); Chloride 103 mmol/L (98-107); Estimated GFR-MDRD 37; Glucose 142 mg/dL (83-110); Phosphorus 4.1 mg/dL (2.3-4.7); Potassium 3.3 mmol/L (3.5-5.1); Sodium 141 mmol/L (136-145)
[2019-10-12] MEDS: Ondansetron PF 4 MG/2 ML Vial IVP PRN (05:44)
[2019-10-12] MEDS: Amlodipine 5 MG TAB PO SCH (08:12)
[2019-10-12] MEDS: Aspirin Chewable 81 MG TAB PO SCH (08:12)
[2019-10-12] MEDS: Sodium Bicarbonate Tab 325 MG TAB PO SCH ×2 (08:13→20:37)
[2019-10-12] MEDS: Heparin 5,000 UNITS/ML VIAL SC SCH ×2 (08:13→20:42)
[2019-10-12] MEDS: Tetrahydrozoline 0.05% OPTH 15 ML BOT L EYE SCH ×2 (08:20→20:42)
[2019-10-12] MEDS: DorzolamidE/Timolol 2%/0.5% Ophth Soln 10 ml Bottle L EYE SCH ×2 (08:20→20:42)
[2019-10-12] MEDS: Senokot S 8.6-50 MG TAB PO SCH ×2 (08:22→20:37)
[2019-10-12] MEDS: Artificial Tears 18 DROP/0.9 ML EA EYE SCH ×2 (08:22→20:43)
--- NOTE | 2019-10-12 09:02 | PRG ---
DATE OF SERVICE: 10/12/2019 SUBJECTIVE: She has done well since extubation yesterday. She is coughing up some purulent dark colored sputum. OBJECTIVE: VITAL SIGNS: Temperature 98.1, pulse 78, blood pressure 152/65, O2 saturation 97%. A 24-hour intake 1664, output 2240. HEENT: Unremarkable. NECK: No adenopathy or JVD. LUNGS: Clear anteriorly. CARDIAC: S1 and S2, regular. ABDOMEN: Soft. EXTREMITIES: No edema. LABORATORY DATA: Sodium 141, potassium 3.3, chloride 103, CO2 of 31, BUN 35, creatinine 1.4, glucose 142. White blood cell count 7.3, hematocrit 25.5, and platelet count 285. ASSESSMENT: 1. Acute on chronic respiratory failure, requiring mechanical ventilation. 2. Escherichia coli sepsis. 3. Acute on chronic diastolic heart failure. 4. Given when she is coughing up, I would assume she probably has also had pneumonia. PLAN: 1. We will go ahead and transfer her to the [facility]. 2. Increase activity as tolerated. 3. Continue antibiotics per ID. Job ID: [id number]
[2019-10-12] MEDS ORDERED: Potassium Chloride 20 MEQ TAB PO SCH (10:30)
--- NOTE | 2019-10-12 11:05 | RAD ---
CHEST 1 VIEW: Date: 10/12/2019 HISTORY: Cough. Status post extubation. COMPARISON: 10/10/2019. FINDINGS: Endotracheal tube has been removed. NG tube remains in place. There is again noted to be bilateral va scular congestion with some perihilar interstitial and alveolar opacity changes, as well as some bila teral pleural effusions, with at least borderline cardiomegaly. Left PICC line in place. IMPRESSION: Overall stable appearing chest with bilateral primarily perihilar interstitial and alveolar opacities and pleural effusions and borderline size heart. Continue short-term follow-up. POS: [facility]
[2019-10-12 11:42] VITALS: BMI 37.1
[2019-10-12] MEDS ORDERED: Morphine 2 MG/ML SYRINGE SLOW IVP SCH (12:38)
[2019-10-12] MEDS ORDERED: Lorazepam 2 MG/ML VIAL SLOW IVP PRN (12:42)
[2019-10-12] MEDS ORDERED: Atropine Sulfate 1% Ophth Soln 5 ml Bottle PO PRN (12:46)
--- NOTE | 2019-10-12 13:59 | PRG ---
DATE OF SERVICE: 10/12/2019 SUBJECTIVE: Ms. Mendoza sustained respiratory failure, had to be intubated on the October 05, is most likely due to aspiration pneumonia and she has been extubated. Right now, she is not very responsive and she has an NG tube in place. OBJECTIVE: LUNGS: With scattered inspiratory crackles. HEART: S1 and S2. ABDOMEN: Soft, not distended and she has an indwelling Martinez catheter. She has had negative output for the past 3 days. LABORATORY DATA: White cell count is 7.3, hemoglobin 8.5, platelets 285. Sodium 141, creatinine 1.38. AST 40, ALT 16, alkaline phosphatase 122. Microbiology with previously noted results. Repeat blood culture, no growth in 5 days and she has a bronchial washing aspirate from the with polymicrobial nadira. The latest chest x-ray with stable appearing chest with bilateral perihilar interstitial alveolar opacities and pleural effusions. Her last BNP was on the was 301. ASSESSMENT AND DISCUSSION: Type 2 diabetes, hypertension with invasive urinary tract infection with pyelonephritis and bacteremia with ESBL organism. The patient to be continued on meropenem. Prognosis is poor. She is not waking up. It is not clear to me what her advanced directive is. Has a do not resuscitate advance directive. Job ID: [id number]
--- NOTE | 2019-10-12 15:15 | PDOC.HOSPP ---
- Subjective Encounter Date: 10/12/19 Encounter Time: 11:30 Subjective: The patient is lethargic. Per nursing staff she was on nasal cannula then desaturated to 70%. She had aspiration of brown feeding from her nose , seemed same color as tube feeds. Tube feeds currently on hold. Patient in [place] reported feeling short of breath. No chest pain. She did move all of her extremities to command Dr Garcias on phone with family with regards to goal of care and recommending hospice. - Objective Vital Signs & Weight: Vital Signs (12 hours) Temp Pulse Pulse Pulse BP BP BP 10/12/19 11:50 10/12/19 11:08 60 65 175/60 H 153/48 H 10/12/19 08:12 67 191/67 H 10/12/19 08:05 69 191/67 H 10/12/19 08:00 98.1 F 10/12/19 04:00 98.1 F Pulse Ox Pulse Ox Pulse Ox 10/12/19 11:50 85 L 10/12/19 11:08 89 L 92 L 10/12/19 08:12 10/12/19 08:05 10/12/19 08:00 99 10/12/19 04:00 Weight Admit Weight 167 lb 8 oz Weight 177 lb 14.609 oz Most Recent Monitor Data Heart Rate from ECG 65 NIBP 131/41 NIBP BP-Mean 71 Respiration from ECG 19 SpO2 97 I&O: 10/11/19 10/12/19 10/13/19 06:59 06:59 06:59 Intake Total 1867 1664 60 Output Total 2648 4339 560 Balance -778 -576 -500 Result Diagrams: 10/12/19 04:25 10/12/19 04:25 Additional Labs: Accuchecks 10/12/19 10/12/19 10/11/19 11:11 08:41 16:27 POC Glucose 207 H 199 H 137 H 10/11/19 13:15 POC Glucose 186 H Hospitalist ROS - Review of Systems ROS unobtainable: due to mental status - Medication Medications: Active Medications Generic Name Dose Route Start Last Admin Trade Name Freq PRN Reason Stop Dose Admin Amlodipine Besylate 5 mg 10/12/19 09:00 10/12/19 08:12 Norvasc PO 5 mg DAILY CLARISA Administration Lipase/Protease/Amylase 1 cap 10/02/19 23:57 10/03/19 00:08 [place] [id number] FS 1 cap .PER PROTOCOL PRN Administration TUBE OCCLUSION PROTOCOL Artificial Tears 1 drop 10/04/19 21:00 10/12/19 08:22 Tears Naturale EA EYE 1 drop BID CLARISA Administration Aspirin 81 mg 09/30/19 09:00 10/12/19 08:12 Aspirin Chewable PO 81 mg DAILY CLARISA Administration Dextrose/Water 25 gm 09/30/19 14:58 10/08/19 12:16 Dextrose 50% SLOW IVP 25 gm PRN PRN Administration Hypoglycemia Dorzolamide/Timolol 1 drop 10/05/19 21:00 10/12/19 08:20 Cosopt 2-0.5% Ophth Soln L EYE 1 drop BID CLARISA Administration Furosemide 40 mg 10/10/19 06:00 10/12/19 05:06 Lasix SLOW IVP 40 mg 0600 CLARISA Administration Heparin Sodium (Porcine) 5,000 units 10/07/19 21:00 10/12/19 08:13 Heparin SC 5,000 units BID CLARISA Administration Hydralazine HCl 10 mg 10/02/19 23:00 10/12/19 08:05 Apresoline SLOW IVP 10 mg Q4H PRN Administration SBP Greater Than 170 Meropenem 1 gm/ Device 50 mls @ 100 mls/hr 10/01/19 04:00 10/12/19 04:28 IVPB 50 mls 0400,1600 CLARISA Administration Dextrose/Sodium Chloride 1,000 mls @ 20 mls/hr 10/08/19 14:00 10/11/19 13:18 D5 0.9% Ns IV 1,000 mls .Q24H CLARISA Administration Vancomycin HCl 500 mg/ Sodium 100 mls @ 100 mls/hr 10/10/19 16:00 10/11/19 15 :02 Chloride IVPB 100 mls 1600 CLARISA Administration Insulin Human Lispro 0 units 09/29/19 22:09 10/10/19 23:25 Humalog SC 2 unit .BEDTIME SLIDING SC PRN Administration Bedtime Correctional Scale Insulin Human Lispro 0 units 09/30/19 14:58 10/12/19 08:40 Humalog SC 2 units .MODERATE SLIDING SC PRN Administration Moderate Correctional Scale Latanoprost 1 drop 10/05/19 21:00 10/11/19 20:27 Xalatan 0.005% Ophth Soln L EYE 1 drop HS CLARISA Administration Lorazepam 2 mg 10/06/19 14:40 10/06/19 14:54 Ativan SLOW IVP 11/05/19 14:40 2 mg Q1H PRN Administration Breakthrough agitation Metoclopramide HCl 10 mg 10/04/19 15:30 10/12/19 08:13 Reglan IVP 10 mg Q8H CLARISA Administration Morphine Sulfate 2 mg 10/06/19 14:40 10/11/19 12:40 Morphine SLOW IVP 11/05/19 14:40 2 mg Q1H PRN Administration BREAKTHROUGH PAIN/Agitation Ondansetron HCl 4 mg 09/29/19 22:09 10/12/19 05:44 Zofran IVP 4 mg Q6H PRN Administration Nausea/Vomiting Pravastatin Sodium 20 mg 09/30/19 21:00 10/11/19 20:32 Pravachol PO 20 mg QPM CLARISA Administration Senna/Docusate Sodium 2 tab 09/30/19 09:00 10/12/19 08:22 Senokot S PO Not Given BID CLARISA Sodium Bicarbonate 650 mg 10/02/19 23:57 10/03/19 00:08 Bicarbonate, Sodium PER TUBE 650 mg .PER PROTOCOL PRN Administration ENTERAL TUBE OCCLUSION Sodium Bicarbonate 650 mg 10/04/19 21:00 10/12/19 08:13 Bicarbonate, Sodium PO 650 mg BID CLARISA Administration Sodium Chloride 10 ml 09/30/19 09:00 10/12/19 08:14 Flush - Normal Saline IVF 10 ml Q12HR CLARISA Administration Sodium Chloride 0 ml 10/01/19 01:10 10/01/19 01:32 [place] Nasal [place] 0.65% EA NARE 2 spray TID PRN Administration Nasal Congestion Tetrahydrozoline HCl 1 drop 10/04/19 21:00 10/12/19 08:20 Visine Ac 0.05% Opth L EYE 1 drop BID CLARISA Administration - Exam General Appearance: NAD General - other findings: on nonrebreather ENT: normocephalic atraumatic, no oropharyngeal lesions Neck: supple, no JVD Heart: RRR, no murmur, no gallops, no rubs Respiratory - other findings: bilateral rhonchi Gastrointestinal: soft, non-tender, non-distended, normal bowel sounds Extremities: no cyanosis, no clubbing, 1+ LE edema Hosp A/P - Plan Chest Xray 10/07; bilateral infiltrates with effusions ECHO 09/30: EF 55-60%, diastolic dysfunction, mildly dilated LA Small bowel Xray: no dilated loops of bowel. Progression of contrast into the colon noted This is 79 year old female who presented with severe intractable nausea and vomiting, treated for sepsis. Required intubation due to aspiration Septic shock secondary to UTI vs pneumonia - patient was on meropenem due to E coli bacteremia. Urine culture growing gram negative eber - vanc added due to increasing leukocytosis and being intubated. She is now extubated. Patient seems to have recurrent episodes of aspiration - Continue vanc day 4 and meropenem D9. Per ID continue until 10/17 - she is now off pressors - due to recurrent aspiration she has poor prognosis. Appreciate palliative input Severe bradycardia - epi drip stopped Acute diastolic heart failure Uncontrolled hypertension - BP > 190 systolic - edema improving. Chest X ray 10/11 still showing bilateral effusions - on lasix 40 mg IV daily #LISSET -resolved #Hyponatremia - resolved - creatinine improved to 1.38 #Hypoglycemia - resolved #Type II Diabetes -on low dose D5 maintenance fluids due to hypoglycemia #Ileus - small bowel X ray ordered and showed no ileus however patient aspirated feeds 10/06 - on tube feeds to suction #Anemia - Hb 8.5 will monitor Dispo: decide on possible extubation today DVT prophylaxis: lovenox Code status: full code
[2019-10-12 15:47] LABS: Vancomycin, Trough 22.5 ug/mL
[2019-10-12] MEDS: Scopolamine 1.5 mg/72 hour Patch TD SCH (16:02)
[2019-10-12] MEDS: Dextrose 5 % And 0.9 % NaCl 1,000 ML IV SCH ×2 (16:04→23:08)
--- NOTE | 2019-10-12 16:55 | PRG ---
DATE OF SERVICE: 10/12/2019 OBJECTIVE: VITAL SIGNS: The patient is seen to be intubated with blood pressure of respiratory rate of 16, O2 saturations 96%. HEENT: Unremarkable. CARDIOVASCULAR: First and second heart sounds were heard. RESPIRATORY: Clear to auscultation. DIGESTIVE: Revealed a benign abdomen. EXTREMITIES: No peripheral edema. SKIN: No new gross rash. LYMPHATICS: No peripheral lymphadenopathy. IMPRESSION: 1. Acute on chronic kidney disease, improving. 2. Hypervolemia. 3. Cardiopulmonary failure. PLAN: Continue renal supportive measures. Job ID: [id number]
--- NOTE | 2019-10-12 17:41 | PDOC.PALCO ---
Palliative Care Consult - Consult Details Requesting Physician: Dr Shook Reason for Consult: goals of care, advance directives assistance, family support - Pertinent HPI 79 year old female who initially presented with intractable nausea and vomiting for 3 days, no relieving factors. Eventually developed a cough that was productive and clear in nature, febrile. Evaluation indicated hyponatremia, sepsis, acute kidney injury and failure to thrive related to malnutrition. During course of stay patient was intubated, had continued decline. Extubated and had a purulent dark sputum, fragile state continuing abx as per infectious disease. - Pertinent PMH Diabetes, hypothyroid, HTN, GERD, - Social History Smoking Status: Never smoker Smoking: no tobacco exposure Alcohol Use: none Drug Use History: none Living Situation: independent, with family/parents - Medications MAR Reviewed: Yes - Allergies Allergies/Adverse Reactions: Allergies Allergy/AdvReac Type Severity Reaction Status Date / Time Penicillins Allergy Severe Verified 08/04/19 01:35 - Subjective Confused, not a reliable source for ROS. - ROS Non Response: due to mental status - Objective Vital Signs: Vital Signs - Most Recent Temp Pulse Resp BP Pulse Ox 98.1 F 60 22 H 175/60 H 85 L 10/12/19 08:00 10/12/19 11:08 10/11/19 12:46 10/12/19 11:08 10/12/19 11:50 Palliative Performance Scale: 20 - Physical Exam Constitutional: encephalitic, ill appearing HEENT: moist MMs, sclera anicteric Respiratory: cough Cardiovascular: RRR Musculoskeletal: no edema, diffuse muscle atrophy Neurology: moves all 4 limbs Skin: fragile Deviation from normal: confusion - Problem List (1) Palliative care encounter Code(s): Z51.5 - ENCOUNTER FOR PALLIATIVE CARE Current Visit: Yes Status: Acute (2) Respiratory failure Code(s): J96.90 - RESPIRATORY FAILURE, UNSP, UNSP W HYPOXIA OR HYPERCAPNIA Current Visit: Yes Status: Acute (3) Physical deconditioning Code(s): R53.81 - OTHER MALAISE Current Visit: Yes Status: Acute (4) LISSET (acute kidney injury) Code(s): N17.9 - ACUTE KIDNEY FAILURE, UNSPECIFIED Current Visit: No Status : Acute (5) Renal dysfunction Current Visit: No Status: Acute (6) Sepsis Code(s): A41.9 - SEPSIS, UNSPECIFIED ORGANISM Current Visit: No Status: Acute Qualifiers: Sepsis type: Escherichia coli Sepsis acute organ dysfunction status: without acute organ dysfunction Qualified Code(s): A41.51 - Sepsis due to Escherichia coli [E. 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 Leandro Lott RNhand painter coordinated family meeting, family eventually to bedside. Understanding of poor prognosis. Please refer to Leandro Lott RNhand painter notes. Atropine Gtts and Scopolamine ordered to mitigate secretions Morphine and Ativan prn for anxiety, shortness of breath, restlessness. [30] minutes spent on this encounter with >50% of the time in counseling and coordination of care. Thank you for this very appropriate consult.
[2019-10-12] MEDS: Vancomycin HCl 500 MG in Sodium Chloride 0.9% 100 ML IVPB SCH (19:11)
[2019-10-12] MEDS: Pravastatin Sodium 20 MG TAB PO SCH (20:37)
[2019-10-12] MEDS: Latanoprost 0.005% Ophth Soln 2.5 ml Bottle L EYE SCH (20:42)
[2019-10-13] MEDS: MEROPENEM 1 GM/50 ML 1 GM in Premix Bag 1 BAG IVPB SCH ×2 (04:50→16:40)
[2019-10-13] MEDS: Ondansetron PF 4 MG/2 ML Vial IVP PRN (04:53)
[2019-10-13] MEDS: Furosemide 40 MG/4 ML VIAL SLOW IVP SCH (05:02)
[2019-10-13 05:39] LABS: Anion Gap 14 mmol/L (10-20); BUN (Urea Nitrogen) 35 mg/dL (9.8-20.1); Calc. Creatinine Clearance 41 mL/min (70-130); Calcium 8.8 mg/dL (7.8-10.44); Carbon Dioxide 28 mmol/L (23-31); Chloride 104 mmol/L (98-107); Estimated GFR-MDRD 35; Glucose 180 mg/dL (83-110); Phosphorus 4.1 mg/dL (2.3-4.7); Potassium 3.5 mmol/L (3.5-5.1); Sodium 142 mmol/L (136-145)
--- NOTE | 2019-10-13 07:45 | RAD ---
SINGLE VIEW OF THE CHEST: COMPARISON: 10/12/2019. HISTORY: Pulmonary edema. FINDINGS: A single view of the chest shows an enlarged but stable cardiomediastinal silhouette. There are smal l bilateral pleural effusions. An infiltrate may be present in the right lower lobe. The PICC line is unchanged in position. IMPRESSION: 1. Bilateral pleural effusions. 2. Right lower lobe infiltrate. POS: [facility]
--- NOTE | 2019-10-13 09:32 | PRG ---
DATE OF SERVICE: 10/13/2019 SUBJECTIVE: The patient appears to be doing better today. She is down to a nasal cannula. OBJECTIVE: VITAL SIGNS: Temperature 97.4, pulse 83, blood pressure 162/96, O2 saturation 96% on 2 L. HEENT: Unremarkable. NECK: No adenopathy or JVD. LUNGS: Coarse breath sounds. CARDIAC: S1, S2. Regular. ABDOMEN: Soft. EXTREMITIES: No edema. LABORATORY DATA: Sodium 142, potassium 3.5, chloride 104, CO2 of 28, BUN 35, creatinine 1.4, glucose 180. Chest x-ray shows bilateral infiltrative changes right greater than left. ASSESSMENT: 1. Pneumonitis. 2. Status post respiratory, failure requiring mechanical ventilation. 3. Very poor underlying physiologic status. 4. Escherichia coli sepsis from urine. 5. Chronic kidney disease. 6. Acute on chronic diastolic heart failure. PLAN: 1. She will continue on meropenem and vancomycin per Dr. Rodriguez. 2. Wean oxygen as tolerated. 3. She is now DNAR after my discussion with family. Job ID: [id number]
--- NOTE | 2019-10-13 09:33 | PDOC.HOSPP ---
- Subjective Encounter Date: 10/13/19 Encounter Time: 09:36 Subjective: CC: f/u pneumonia The patient is alert and talking. She is aware the date is October 2019. She says president is Trump. She denies chest congestion, no shortness of breath. Yesterday coughed up brown sputum . She was made comfort measures by family yesterday but looks much better today She reports not liking Trump due to how his hair looks. Seems much better today - Objective Vital Signs & Weight: Vital Signs (12 hours) Temp Pulse BP Pulse Ox 10/13/19 07:28 97.4 F L 10/13/19 06:36 99 10/12/19 23:05 76 172/81 H Weight Admit Weight 167 lb 8 oz Weight 180 lb 6 oz Most Recent Monitor Data Heart Rate from ECG 83 NIBP 162/96 NIBP BP-Mean 118 Respiration from ECG 22 SpO2 96 I&O: 10/12/19 10/13/19 10/14/19 06:59 06:59 06:59 Intake Total 1664 1124 Output Total 2240 2260 Balance -576 -3702 Result Diagrams: 10/12/19 04:25 10/13/19 04:59 Additional Labs: Accuchecks 10/13/19 10/13/19 10/13/19 08:06 03:51 00:23 POC Glucose 198 H 185 H 180 H 10/12/19 10/12/19 10/12/19 19:58 16:39 11:11 POC Glucose 227 H 221 H 207 H 10/12/19 10/12/19 10/11/19 04:29 00:13 20:08 POC Glucose 153 H 157 H 178 H Hospitalist ROS - Medication Medications: Active Medications Generic Name Dose Route Start Last Admin Trade Name Freq PRN Reason Stop Dose Admin Amlodipine Besylate 5 mg 10/12/19 09:00 10/12/19 08:12 Norvasc PO 5 mg DAILY CLARISA Administration Lipase/Protease/Amylase 1 cap 10/02/19 23:57 10/03/19 00:08 Mack [place] [id number] FS 1 cap .PER PROTOCOL PRN Administration TUBE OCCLUSION PROTOCOL Artificial Tears 1 drop 10/04/19 21:00 10/12/19 20:43 Tears Naturale EA EYE 1 drop BID CLARISA Administration Aspirin 81 mg 09/30/19 09:00 10/12/19 08:12 Aspirin Chewable PO 81 mg DAILY CLARISA Administration Dextrose/Water 25 gm 09/30/19 14:58 10/08/19 12:16 Dextrose 50% SLOW IVP 25 gm PRN PRN Administration Hypoglycemia Dorzolamide/Timolol 1 drop 10/05/19 21:00 10/12/19 20:42 Cosopt 2-0.5% Ophth Soln L EYE 1 drop BID CLARISA Administration Furosemide 40 mg 10/10/19 06:00 10/13/19 05:02 Lasix SLOW IVP 40 mg 0600 CLARISA Administration Heparin Sodium (Porcine) 5,000 units 10/07/19 21:00 10/12/19 20:42 Heparin SC 5,000 units BID CLARISA Administration Hydralazine HCl 10 mg 10/02/19 23:00 10/12/19 23:05 Apresoline SLOW IVP 10 mg Q4H PRN Administration SBP Greater Than 170 Meropenem 1 gm/ Device 50 mls @ 100 mls/hr 10/01/19 04:00 10/13/19 04:50 IVPB 50 mls 0400,1600 CLARISA Administration Dextrose/Sodium Chloride 1,000 mls @ 20 mls/hr 10/08/19 14:00 10/12/19 23:08 D5 0.9% Ns IV 1,000 mls .Q24H CLARISA Administration Vancomycin HCl 500 mg/ Sodium 100 mls @ 100 mls/hr 10/10/19 16:00 10/12/19 19 :11 Chloride IVPB 100 mls 1600 CLARISA Administration Insulin Human Lispro 0 units 09/29/19 22:09 10/12/19 20:43 Humalog SC 2 unit .BEDTIME SLIDING SC PRN Administration Bedtime Correctional Scale Insulin Human Lispro 0 units 09/30/19 14:58 10/12/19 08:40 Humalog SC 2 units .MODERATE SLIDING SC PRN Administration Moderate Correctional Scale Latanoprost 1 drop 10/05/19 21:00 10/12/19 20:42 Xalatan 0.005% Ophth Soln L EYE 1 drop HS CLARISA Administration Lorazepam 2 mg 10/06/19 14:40 10/06/19 14:54 Ativan SLOW IVP 11/05/19 14:40 2 mg Q1H PRN Administration Breakthrough agitation Metoclopramide HCl 10 mg 10/04/19 15:30 10/12/19 23:05 Reglan IVP 10 mg Q8H CLARISA Administration Morphine Sulfate 2 mg 10/06/19 14:40 10/11/19 12:40 Morphine SLOW IVP 11/05/19 14:40 2 mg Q1H PRN Administration BREAKTHROUGH PAIN/Agitation Ondansetron HCl 4 mg 09/29/19 22:09 10/13/19 04:53 Zofran IVP 4 mg Q6H PRN Administration Nausea/Vomiting Pravastatin Sodium 20 mg 09/30/19 21:00 10/12/19 20:37 Pravachol PO Not Given QPM CLARISA Scopolamine 3 mg 10/12/19 14:00 10/12/19 16:02 Transderm Scop TD 3 mg Q3D CLARISA Administration Senna/Docusate Sodium 2 tab 09/30/19 09:00 10/12/19 20:37 Senokot S PO Not Given BID CLARISA Sodium Bicarbonate 650 mg 10/02/19 23:57 10/03/19 00:08 Bicarbonate, Sodium PER TUBE 650 mg .PER PROTOCOL PRN Administration ENTERAL TUBE OCCLUSION Sodium Bicarbonate 650 mg 10/04/19 21:00 10/12/19 20:37 Bicarbonate, Sodium PO Not Given BID CLARISA Sodium Chloride 10 ml 09/30/19 09:00 10/12/19 20:43 Flush - Normal Saline IVF 10 ml Q12HR CLARISA Administration Sodium Chloride 0 ml 10/01/19 01:10 10/01/19 01:32 [place] Nasal [place] 0.65% EA NARE 2 spray TID PRN Administration Nasal Congestion Tetrahydrozoline HCl 1 drop 10/04/19 21:00 10/12/19 20:42 Visine Ac 0.05% Opth L EYE 1 drop BID CLARISA Administration Hosp A/P - Plan Chest Xray 10/07; bilateral infiltrates with effusions ECHO 09/30: EF 55-60%, diastolic dysfunction, mildly dilated LA Small bowel Xray: no dilated loops of bowel. Progression of contrast into the colon noted Chest x ray 10/12: bilateral infiltrates, right consolidation This is 79 year old female who presented with severe intractable nausea and vomiting, treated for sepsis. Required intubation due to aspiration Septic shock secondary to UTI vs pneumonia - patient was on meropenem due to E coli bacteremia. Urine culture growing gram negative eber. Continue until 10/17 - currently off pressors - continue vanc for two more days, currently day 5 - will have PT evaluate patient today #Ileus - small bowel X ray ordered and showed no ileus however patient aspirated feeds 10/06 - NG tube was removed after extubation - will place speech consult to see if patient can swallow #Acute diastolic heart failure #Uncontrolled hypertension - BP > 190 systolic - edema improving. Chest X ray 10/12 still showing bilateral effusions - on lasix 40 mg IV daily #LISSET - improved - creatinine 1.44 - continue IV lasix, will reduce to 20 mg IV daily Severe bradycardia - epi drip stopped #Hyponatremia - resolved #Hypoglycemia - resolved #Type II Diabetes -on low dose D5 maintenance fluids due to hypoglycemia #Anemia - Hb 8.5 will monitor Dispo: decide on possible extubation today DVT prophylaxis: lovenox Code status: full code
[2019-10-13] MEDS: Senokot S 8.6-50 MG TAB PO SCH ×2 (09:50→20:56)
[2019-10-13] MEDS: Aspirin Chewable 81 MG TAB PO SCH (09:50)
[2019-10-13] MEDS: Amlodipine 5 MG TAB PO SCH (09:50)
[2019-10-13] MEDS: Metoclopramide HCl 10 MG/2 ML VIAL IVP SCH ×3 (09:52→22:51)
[2019-10-13] MEDS: Heparin 5,000 UNITS/ML VIAL SC SCH ×2 (09:52→20:59)
[2019-10-13] MEDS: Sodium Bicarbonate Tab 325 MG TAB PO SCH ×2 (09:52→20:57)
[2019-10-13] MEDS: Tetrahydrozoline 0.05% OPTH 15 ML BOT L EYE SCH ×2 (10:50→20:58)
[2019-10-13] MEDS: DorzolamidE/Timolol 2%/0.5% Ophth Soln 10 ml Bottle L EYE SCH ×2 (10:53→20:58)
[2019-10-13] MEDS: Artificial Tears 18 DROP/0.9 ML EA EYE SCH ×2 (10:59→20:57)
[2019-10-13 15:37] LABS: Vancomycin, Trough 25.2 ug/mL
--- NOTE | 2019-10-13 16:37 | PRG ---
DATE OF SERVICE: 10/13/2019 OBJECTIVE: VITAL SIGNS: The patient was noted to be afebrile, temperature 97.8, blood pressure 164/79, pulse of 78, respiratory rate of 20, and O2 saturation 98%. HEENT: Unremarkable. CARDIOVASCULAR SYSTEM: First and second heart sounds were heard. RESPIRATORY SYSTEM: Clear to auscultation. DIGESTIVE SYSTEM: Revealed an obese abdomen. EXTREMITIES: Showed minimal peripheral edema. IMPRESSION: 1. Acute on chronic kidney disease, which seems to have improved. 2. Cardiopulmonary failure, status post ventilator. PLAN: Continue current renal supportive measures. Job ID: [id number]
[2019-10-13] MEDS: hydrALAZINE 25 MG TAB PO SCH ×2 (16:38→20:56)
[2019-10-13] MEDS: HumaLOG 300 UNITS/3 ML VIAL SC PRN (16:39)
[2019-10-13] MEDS: Vancomycin HCl 500 MG in Sodium Chloride 0.9% 100 ML IVPB SCH (16:43)
[2019-10-13] MEDS: Pravastatin Sodium 20 MG TAB PO SCH (20:57)
[2019-10-13] MEDS: Latanoprost 0.005% Ophth Soln 2.5 ml Bottle L EYE SCH (20:58)
[2019-10-13] MEDS ORDERED: Potassium Chloride 20 MEQ TAB PO SCH (22:00)
[2019-10-14] MEDS ORDERED: Furosemide 40 MG/4 ML VIAL SLOW IVP SCH (02:45)
[2019-10-14 04:14] LABS: Hemoglobin 8.1 g/dL (12.0-16.0); Mean Corpuscular Hemoglobin 29.2 pg (27.0-31.0); Mean Corpuscular Volume 91.2 fL (78.0-98.0); Mean Platelet Volume 7.6 fL (7.4-10.4); Platelet Count 235 thou/uL (130-400); Red Blood Cell (RBC) Count 2.77 mill/uL (4.20-5.40); White Blood Cell (WBC) Count 18.1 thou/uL (4.8-10.8)
[2019-10-14 04:34] LABS: Anion Gap 12 mmol/L (10-20); BUN (Urea Nitrogen) 38 mg/dL (9.8-20.1); Calc. Creatinine Clearance 37 mL/min (70-130); Carbon Dioxide 33 mmol/L (23-31); Chloride 103 mmol/L (98-107); Estimated GFR-MDRD 32; Glucose 197 mg/dL (83-110); Phosphorus 3.7 mg/dL (2.3-4.7); Potassium 3.3 mmol/L (3.5-5.1); Sodium 145 mmol/L (136-145)
[2019-10-14] MEDS: MEROPENEM 1 GM/50 ML 1 GM in Premix Bag 1 BAG IVPB SCH ×2 (04:47→14:11)
[2019-10-14] MEDS: HumaLOG 300 UNITS/3 ML VIAL SC PRN ×3 (04:50→21:09)
[2019-10-14] MEDS: Furosemide 40 MG/4 ML VIAL SLOW IVP SCH (05:29)
[2019-10-14] MEDS: Ondansetron PF 4 MG/2 ML Vial IVP PRN (06:00)
[2019-10-14] MEDS ORDERED: Furosemide 20 MG/2 ML VIAL SLOW IVP SCH (06:00)
[2019-10-14] MEDS: Senokot S 8.6-50 MG TAB PO SCH ×2 (07:52→20:56)
[2019-10-14] MEDS: Sodium Bicarbonate Tab 325 MG TAB PO SCH ×2 (07:52→20:56)
[2019-10-14] MEDS: Aspirin Chewable 81 MG TAB PO SCH (07:53)
[2019-10-14] MEDS: Heparin 5,000 UNITS/ML VIAL SC SCH ×2 (07:53→20:55)
[2019-10-14] MEDS: hydrALAZINE 25 MG TAB PO SCH ×3 (07:53→20:59)
[2019-10-14] MEDS: Amlodipine 5 MG TAB PO SCH (07:54)
[2019-10-14] MEDS: Metoclopramide HCl 10 MG/2 ML VIAL IVP SCH ×2 (07:54→14:11)
[2019-10-14] MEDS: Tetrahydrozoline 0.05% OPTH 15 ML BOT L EYE SCH ×2 (07:54→20:55)
[2019-10-14] MEDS: Artificial Tears 18 DROP/0.9 ML EA EYE SCH ×2 (07:54→21:07)
[2019-10-14] MEDS: DorzolamidE/Timolol 2%/0.5% Ophth Soln 10 ml Bottle L EYE SCH ×2 (07:54→20:54)
--- NOTE | 2019-10-14 11:56 | PRG ---
DATE OF SERVICE: 10/14/2019 SUBJECTIVE: The patient answers simple questions, but is fairly sleepy in conversation. When aroused, she denies pain. She denies cough or sputum today. PHYSICAL EXAMINATION: VITAL SIGNS: Blood pressure 176/88, heart rate 87. It is reported that her core temperature by bladder scan is 96.7. She remains on a nonrebreather face mask. She has no Celia. LUNGS: Show rhonchi, but no wheezing. HEART: Regular rate and rhythm. ABDOMEN: Obese, soft. There is no organomegaly. There is no guarding or rebound. EXTREMITIES: Showed no cyanosis, clubbing, or edema. LABORATORY DATA: Her laboratory today includes a white count of 18,100, hemoglobin is 8.1, platelet count is 235,000. Electrolytes notable for potassium of 3.3, CO2 of 33, BUN 38, with creatinine 1.6, glucose has ranged from 150 to 225. Her most recent blood cultures done shortly after admission were negative. IMPRESSION: Escherichia coli septicemia, now having completed 2 weeks of IV antibiotic therapy, but remains on Merrem and vancomycin. Influenza was negative. From microbiology perspective, she has been adequately treated for her Escherichia coli. I am going to discontinue the vancomycin. It looks as though she has already completed 2 weeks of Merrem and should be able to discontinue. She was resistant to ceftriaxone and cefepime, and followup blood cultures done several days after admission were actually negative. PLAN: I am going to discontinue the vancomycin. From my perspective, the meropenem can be discontinue now, having completed about 2-week course. Family has decided to take a less aggressive approach and I would encourage discharge home with family directed hospice. Job ID: [id number]
[2019-10-14] MEDS: Dextrose 5 % And 0.9 % NaCl 1,000 ML IV SCH (14:10)
--- NOTE | 2019-10-14 15:05 | PDOC.HOSPP ---
- Objective Vital Signs & Weight: Vital Signs (12 hours) Temp Pulse BP Pulse Ox 10/14/19 14:10 83 147/81 H 10/14/19 11:03 97.3 F L 10/14/19 08:00 100 10/14/19 07:54 83 147/81 H 10/14/19 07:53 89 147/81 H 10/14/19 07:19 96.5 F L 10/14/19 04:00 100 10/14/19 03:41 97.8 F Weight Admit Weight 167 lb 8 oz Weight 177 lb 9 oz Most Recent Monitor Data Heart Rate from ECG 91 NIBP 155/73 NIBP BP-Mean 100 Respiration from ECG 27 SpO2 84 I&O: 10/13/19 10/14/19 10/15/19 06:59 06:59 06:59 Intake Total 1124 1910.7 Output Total 2260 3325 Balance -1136 -1414.3 Result Diagrams: 10/14/19 04:05 10/14/19 04:05 Additional Labs: Accuchecks 10/14/19 10/14/19 10/14/19 10:16 08:36 06:00 POC Glucose 206 H 196 H 198 H 10/14/19 10/13/19 10/13/19 00:57 20:33 16:13 POC Glucose 187 H 153 H 225 H Hospitalist ROS - Medication Medications: Active Medications Generic Name Dose Route Start Last Admin Trade Name Freq PRN Reason Stop Dose Admin Amlodipine Besylate 5 mg 10/12/19 09:00 10/14/19 07:54 Norvasc PO 5 mg DAILY CLARISA Administration Lipase/Protease/Amylase 1 cap 10/02/19 23:57 10/03/19 00:08 Mack Gannon [id number] FS 1 cap .PER PROTOCOL PRN Administration TUBE OCCLUSION PROTOCOL Artificial Tears 1 drop 10/04/19 21:00 10/14/19 07:54 Tears Naturale EA EYE 1 drop BID CLARISA Administration Aspirin 81 mg 09/30/19 09:00 10/14/19 07:53 Aspirin Chewable PO 81 mg DAILY CLARISA Administration Dextrose/Water 25 gm 09/30/19 14:58 10/08/19 12:16 Dextrose 50% SLOW IVP 25 gm PRN PRN Administration Hypoglycemia Dorzolamide/Timolol 1 drop 10/05/19 21:00 10/14/19 07:54 Cosopt 2-0.5% Ophth Soln L EYE 1 drop BID CLARISA Administration Furosemide 40 mg 10/10/19 06:00 10/14/19 05:29 Lasix SLOW IVP Not Given 0600 [facility] Heparin Sodium (Porcine) 5,000 units 10/07/19 21:00 10/14/19 07:53 Heparin SC 5,000 units BID CLARISA Administration Hydralazine HCl 10 mg 10/02/19 23:00 10/12/19 23:05 Apresoline SLOW IVP 10 mg Q4H PRN Administration SBP Greater Than 170 Hydralazine HCl 50 mg 10/13/19 15:00 10/14/19 14:10 Apresoline PO Not Given TID CLARISA Meropenem 1 gm/ Device 50 mls @ 100 mls/hr 10/01/19 04:00 10/14/19 14:11 IVPB 10/15/19 23:59 50 mls 0400,1600 CLARISA Administration Dextrose/Sodium Chloride 1,000 mls @ 20 mls/hr 10/08/19 14:00 10/14/19 14:10 D5 0.9% Ns IV 1,000 mls .Q24H CLARISA Administration Insulin Human Lispro 0 units 09/29/19 22:09 10/12/19 20:43 Humalog SC 2 unit .BEDTIME SLIDING SC PRN Administration Bedtime Correctional Scale Insulin Human Lispro 0 units 09/30/19 14:58 10/14/19 04:50 Humalog SC 2 units .MODERATE SLIDING SC PRN Administration Moderate Correctional Scale Latanoprost 1 drop 10/05/19 21:00 10/13/19 20:58 Xalatan 0.005% Ophth Soln L EYE 1 drop HS CLARISA Administration Lorazepam 2 mg 10/06/19 14:40 10/06/19 14:54 Ativan SLOW IVP 11/05/19 14:40 2 mg Q1H PRN Administration Breakthrough agitation Metoclopramide HCl 10 mg 10/04/19 15:30 10/14/19 14:11 Reglan IVP 10 mg Q8H CLARISA Administration Morphine Sulfate 2 mg 10/06/19 14:40 10/11/19 12:40 Morphine SLOW IVP 11/05/19 14:40 2 mg Q1H PRN Administration BREAKTHROUGH PAIN/Agitation Ondansetron HCl 4 mg 09/29/19 22:09 10/14/19 06:00 Zofran IVP 4 mg Q6H PRN Administration Nausea/Vomiting Pravastatin Sodium 20 mg 09/30/19 21:00 10/13/19 20:57 Pravachol PO 20 mg QPM CLARISA Administration Scopolamine 3 mg 10/12/19 14:00 10/12/19 16:02 Transderm Scop TD 3 mg Q3D CLARISA Administration Senna/Docusate Sodium 2 tab 09/30/19 09:00 10/14/19 07:52 Senokot S PO 2 tab BID CLARISA Administration Sodium Bicarbonate 650 mg 10/02/19 23:57 10/03/19 00:08 Bicarbonate, Sodium PER TUBE 650 mg .PER PROTOCOL PRN Administration ENTERAL TUBE OCCLUSION Sodium Bicarbonate 650 mg 10/04/19 21:00 10/14/19 07:52 Bicarbonate, Sodium PO 650 mg BID CLARISA Administration Sodium Chloride 10 ml 09/30/19 09:00 10/14/19 07:54 Flush - Normal Saline IVF 10 ml Q12HR CLARISA Administration Sodium Chloride 0 ml 10/01/19 01:10 10/01/19 01:32 [place] Nasal [place] 0.65% EA NARE 2 spray TID PRN Administration Nasal Congestion Tetrahydrozoline HCl 1 drop 10/04/19 21:00 10/14/19 07:54 Visine Ac 0.05% Opth L EYE 1 drop BID CLARISA Administration Hosp A/P - Plan suspected sepsis - hypovolumic iwthout shock Sepsis likely also d/t UTI/ bacteremia Dehydration Hypovolumic hyponateremia Hypoglycemia with hx of DM2 Abn troponin d/t sepsis, type II. --> plateaued. ESBL E.coli bcateremia -u cx - neg. -flu neg -repeating the blood shanta today/ -wbcs trending down. blood shanta no growth x 5 days -on vanc + cefepime-----------> merum still on this merum, vanc d/' cd today. -pharm c/s -IV NS #Ileus - small bowel X ray ordered and showed no ileus however patient aspirated feeds 10/06 - NG tube was removed after extubation - will place speech consult to see if patient can swallow #Acute diastolic heart failure #Uncontrolled hypertension - BP > 190 systolic - edema improving. 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 full code
[2019-10-14] MEDS: Latanoprost 0.005% Ophth Soln 2.5 ml Bottle L EYE SCH (20:55)
[2019-10-14] MEDS: Pravastatin Sodium 20 MG TAB PO SCH (20:58)
[2019-10-15] MEDS: Metoclopramide HCl 10 MG/2 ML VIAL IVP SCH ×4 (00:45→23:12)
[2019-10-15] MEDS: HumaLOG 300 UNITS/3 ML VIAL SC PRN ×3 (00:45→20:57)
[2019-10-15] MEDS: Ondansetron PF 4 MG/2 ML Vial IVP PRN ×2 (03:10→23:12)
[2019-10-15] MEDS: hydrALAZINE 20 MG/ML VIAL SLOW IVP PRN (05:31)
[2019-10-15] MEDS: Furosemide 40 MG/4 ML VIAL SLOW IVP SCH (05:33)
[2019-10-15] MEDS: Artificial Tears 18 DROP/0.9 ML EA EYE SCH ×2 (10:16→21:07)
[2019-10-15] MEDS: Aspirin Chewable 81 MG TAB PO SCH (10:16)
[2019-10-15] MEDS: Amlodipine 5 MG TAB PO SCH (10:16)
[2019-10-15] MEDS: DorzolamidE/Timolol 2%/0.5% Ophth Soln 10 ml Bottle L EYE SCH ×2 (10:17→21:18)
[2019-10-15] MEDS: Heparin 5,000 UNITS/ML VIAL SC SCH ×2 (10:17→21:00)
[2019-10-15] MEDS: Senokot S 8.6-50 MG TAB PO SCH ×2 (10:18→21:12)
[2019-10-15] MEDS: hydrALAZINE 25 MG TAB PO SCH ×3 (10:18→21:12)
[2019-10-15] MEDS: Sodium Bicarbonate Tab 325 MG TAB PO SCH ×2 (10:18→21:12)
[2019-10-15] MEDS: Tetrahydrozoline 0.05% OPTH 15 ML BOT L EYE SCH ×2 (10:19→21:08)
--- NOTE | 2019-10-15 12:05 | PRG ---
DATE OF SERVICE: 10/15/2019 SUBJECTIVE: Ms. Mendoza has not had a significant change. I do not elicit any pain. She does remain on non-rebreather face mask. PHYSICAL EXAMINATION: VITAL SIGNS: Blood pressure 193/86, heart rate 87, she is on a non-rebreather face mask. She is currently afebrile. GENERAL: She is awake and responsive, but Amharic-speaking. NECK: She has no adenopathy. LUNGS: Show bronchial breath sounds without wheezing. HEART: Regular rate and rhythm. ABDOMEN: Soft. There is no organomegaly. EXTREMITIES: She has trace edema. LABORATORY DATA: There is no laboratory today. IMPRESSION: Urosepsis, on antibiotic therapy. Clinically, she is improving. PLAN: She is improving. Vancomycin was discontinued yesterday. She has completed a formal course of Merrem and we should be able to discontinue that as well. Limiting factor for going home is going to be her need for high-flow oxygen. Job ID: [id number]
--- NOTE | 2019-10-15 14:20 | PDOC.HOSPP ---
- Subjective Encounter Date: 10/15/19 Encounter Time: 09:50 Subjective: pt lying in the bed, comfortable, on high flow O2. wbcs jumped again yesterday and BP also high. - Objective Vital Signs & Weight: Vital Signs (12 hours) Temp Pulse BP Pulse Ox 10/15/19 11:31 98.1 F 10/15/19 10:18 87 193/86 H 10/15/19 10:16 87 193/86 H 10/15/19 07:17 100 10/15/19 07:16 98.0 F 10/15/19 05:31 87 193/86 H 10/15/19 03:27 98.6 F Weight Admit Weight 167 lb 8 oz Weight 175 lb 6 oz Most Recent Monitor Data Heart Rate from ECG 92 NIBP 170/94 NIBP BP-Mean 119 Respiration from ECG 18 SpO2 94 I&O: 10/14/19 10/15/19 10/16/19 06:59 06:59 06:59 Intake Total 1910.7 307 Output Total 3325 900 Balance -1414.3 -593 Result Diagrams: 10/14/19 04:05 10/14/19 04:05 Additional Labs: Accuchecks 10/15/19 10/15/19 10/15/19 12:11 08:06 04:12 POC Glucose 224 H 211 H 175 H 10/14/19 10/14/19 10/14/19 23:40 20:14 16:28 POC Glucose 204 H 220 H 237 H 10/14/19 12:04 POC Glucose 213 H Hospitalist ROS - Medication Medications: Active Medications Generic Name Dose Route Start Last Admin Trade Name Freq PRN Reason Stop Dose Admin Amlodipine Besylate 5 mg 10/12/19 09:00 10/15/19 10:16 Norvasc PO 5 mg DAILY CLARISA Administration Lipase/Protease/Amylase 1 cap 10/02/19 23:57 10/03/19 00:08 Mack Gannon [id number] FS 1 cap .PER PROTOCOL PRN Administration TUBE OCCLUSION PROTOCOL Artificial Tears 1 drop 10/04/19 21:00 10/15/19 10:16 Tears Naturale EA EYE 1 drop BID CLARISA Administration Aspirin 81 mg 09/30/19 09:00 10/15/19 10:16 Aspirin Chewable PO 81 mg DAILY CLARISA Administration Dextrose/Water 25 gm 09/30/19 14:58 10/08/19 12:16 Dextrose 50% SLOW IVP 25 gm PRN PRN Administration Hypoglycemia Dorzolamide/Timolol 1 drop 10/05/19 21:00 10/15/19 10:17 Cosopt 2-0.5% Ophth Soln L EYE 1 drop BID CLARISA Administration Furosemide 40 mg 10/10/19 06:00 10/15/19 05:33 Lasix SLOW IVP 40 mg 0600 CLARISA Administration Heparin Sodium (Porcine) 5,000 units 10/07/19 21:00 10/15/19 10:17 Heparin SC 5,000 units BID CLARISA Administration Hydralazine HCl 10 mg 10/02/19 23:00 10/15/19 05:31 Apresoline SLOW IVP 10 mg Q4H PRN Administration SBP Greater Than 170 Hydralazine HCl 50 mg 10/13/19 15:00 10/15/19 10:18 Apresoline PO 50 mg TID CLARISA Administration Dextrose/Sodium Chloride 1,000 mls @ 20 mls/hr 10/08/19 14:00 10/14/19 14:10 D5 0.9% Ns IV 1,000 mls .Q24H CLARISA Administration Insulin Human Lispro 0 units 09/29/19 22:09 10/15/19 00:45 Humalog SC 2 unit .BEDTIME SLIDING SC PRN Administration Bedtime Correctional Scale Insulin Human Lispro 0 units 09/30/19 14:58 10/14/19 17:40 Humalog SC 4 units .MODERATE SLIDING SC PRN Administration Moderate Correctional Scale Latanoprost 1 drop 10/05/19 21:00 10/14/19 20:55 Xalatan 0.005% Ophth Soln L EYE 1 drop HS CLARISA Administration Metoclopramide HCl 10 mg 10/04/19 15:30 10/15/19 10:16 Reglan IVP 10 mg Q8H CLARISA Administration Ondansetron HCl 4 mg 09/29/19 22:09 10/15/19 03:10 Zofran IVP 4 mg Q6H PRN Administration Nausea/Vomiting Pravastatin Sodium 20 mg 09/30/19 21:00 10/14/19 20:58 Pravachol PO Not Given QPM CLARISA Scopolamine 3 mg 10/12/19 14:00 10/12/19 16:02 Transderm Scop TD 3 mg Q3D CLARISA Administration Senna/Docusate Sodium 2 tab 09/30/19 09:00 10/15/19 10:18 Senokot S PO 2 tab BID CLARISA Administration Sodium Bicarbonate 650 mg 10/02/19 23:57 10/03/19 00:08 Bicarbonate, Sodium PER TUBE 650 mg .PER PROTOCOL PRN Administration ENTERAL TUBE OCCLUSION Sodium Bicarbonate 650 mg 10/04/19 21:00 10/15/19 10:18 Bicarbonate, Sodium PO 650 mg BID CLARISA Administration Sodium Chloride 10 ml 09/30/19 09:00 10/15/19 10:18 Flush - Normal Saline IVF 10 ml Q12HR CLARISA Administration Sodium Chloride 0 ml 10/01/19 01:10 10/01/19 01:32 [place] Nasal [place] 0.65% EA NARE 2 spray TID PRN Administration Nasal Congestion Tetrahydrozoline HCl 1 drop 10/04/19 21:00 10/15/19 10:19 Visine Ac 0.05% Opth L EYE 1 drop BID CLARISA Administration - Exam General Appearance: ill appearing Eye: PERRL ENT: normocephalic atraumatic Neck: supple Heart: RRR Respiratory: CTAB, normal chest expansion Gastrointestinal: soft, normal bowel sounds Hosp A/P - Plan suspected sepsis - hypovolumic iwthout shock Sepsis likely also d/t UTI/ bacteremia Acute resp failure. --on high flow O2 now; s/p extubation Dehydration Hypovolumic hyponateremia Hypoglycemia with hx of DM2 Abn troponin d/t sepsis, type II. --> plateaued. ESBL E.coli bcateremia -u cx - neg. -flu neg -repeating the blood shanta -wbcs trending down. blood shanta no growth x 5 days -on vanc + cefepime-----------> merum >merum & vanc d/'cd on , per pulmonary. -completed almost 2 weeks of abx. #Ileus - small bowel X ray ordered and showed no ileus however patient aspirated feeds 10/06 - NG tube was removed after extubation - will place speech consult to see if patient can swallow #Acute diastolic heart failure #Uncontrolled hypertension - BP > 190 systolic - edema improving. Chest X ray 10/12 still showing bilateral effusions - on lasix 40 mg IV daily -hydralazine being uptitrated. 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
[2019-10-15 14:41] LABS: Hemoglobin 7.1 g/dL (12.0-16.0); Mean Corpuscular Hemoglobin 29.6 pg (27.0-31.0); Mean Corpuscular Volume 92.6 fL (78.0-98.0); Mean Platelet Volume 8.3 fL (7.4-10.4); Platelet Count 210 thou/uL (130-400); RBC Distribution Width 13.9 % (11.5-14.5); Red Blood Cell (RBC) Count 2.38 mill/uL (4.20-5.40); White Blood Cell (WBC) Count 21.4 thou/uL (4.8-10.8)
--- NOTE | 2019-10-15 14:49 | RAD ---
Chest one view HISTORY: Leukocytosis. COMPARISON: 10/13/2019. FINDINGS: Cardiac silhouette is magnified by projection. Bilateral lower lobe infiltrates and bilater al pleural fluid are similar in appearance to the previous exam. Mediastinum is midline. Left upper extremity PICC partially visualized. No evidence of pneumothorax. monitoring tech leads overlie the chest. IMPRESSION : Pleural fluid, bibasilar infiltrates, and other findings appear stable.
[2019-10-15 14:54] LABS: Band 3 % (5-11); Lymphocytes 3 % (21-51); MDiff Complete? YES; Monocytes 1 % (0-10); Neutrophil 93 % (42-75); Platelet Morphology Comment Appears Adequate; Polychromasia SLIGHT = 2-3 cells (100X) (0-2/hpf)
[2019-10-15 15:01] LABS: ALT (SGPT) 12 U/L (8-55); AST (SGOT) 24 U/L (5-34); Albumin 2.3 g/dL (3.4-4.8); Alkaline Phosphatase 92 U/L (40-110); Bilirubin, Direct 0.2 mg/dL (0.1-0.3); Bilirubin, Total 0.2 mg/dL (0.2-1.2); Protein, Total 5.9 g/dL (6.0-8.3)
[2019-10-15] MEDS: Dextrose 5 % And 0.9 % NaCl 1,000 ML IV SCH (16:59)
[2019-10-15] MEDS: Scopolamine 1.5 mg/72 hour Patch TD SCH (17:00)
[2019-10-15 18:55] LABS: Bilirubin Negative (Negative); Blood, Urine 1+ (Negative); Clarity Turbid (Clear); Glucose, Urine (Dipstick) 100 mg/dL (Negative); Leukocyte 75 Leu/uL (Negative); Nitrite Negative (Negative); Protein, Urine (Dipstick) 200 mg/dL (Neg-Trace); Renal Epithelial 0-3 HPF (None Seen); Transitional Epithelial 0-3 HPF (None Seen)
[2019-10-15 19:03] LABS: Bacteria/HPF Rare-Few HPF (None Seen)
[2019-10-15 19:04] LABS: Urine Culture Reflex No No
[2019-10-15] MEDS: Latanoprost 0.005% Ophth Soln 2.5 ml Bottle L EYE SCH (21:08)
[2019-10-15] MEDS: Pravastatin Sodium 20 MG TAB PO SCH (21:12)
[2019-10-16] MEDS: HumaLOG 300 UNITS/3 ML VIAL SC PRN ×4 (03:29→17:35)
[2019-10-16 03:47] LABS: #Lymphocytes 0.8 thou/uL (1.20-3.40); #Monocytes 0.4 thou/uL (0.11-0.59); #Neutrophils 18.4 thou/uL (1.40-6.50); %Monocytes 1.8 % (0.0-10.0); %Neutrophils 94.2 % (42.0-75.0); Hemoglobin 6.9 g/dL (12.0-16.0); Mean Corpuscular HGB CONC 31.3 g/dL (32.0-36.0); Mean Corpuscular Hemoglobin 29.1 pg (27.0-31.0); Mean Corpuscular Volume 92.9 fL (78.0-98.0); Mean Platelet Volume 8.3 fL (7.4-10.4); Platelet Count 216 thou/uL (130-400); RBC Distribution Width 13.9 % (11.5-14.5); Red Blood Cell (RBC) Count 2.36 mill/uL (4.20-5.40); White Blood Cell (WBC) Count 19.6 thou/uL (4.8-10.8)
[2019-10-16] MEDS: Metoclopramide HCl 10 MG/2 ML VIAL IVP SCH ×3 (07:54→22:28)
[2019-10-16] MEDS: Amlodipine 5 MG TAB PO SCH (07:54)
[2019-10-16] MEDS: Heparin 5,000 UNITS/ML VIAL SC SCH ×2 (07:55→19:59)
[2019-10-16] MEDS: Aspirin Chewable 81 MG TAB PO SCH (07:55)
[2019-10-16] MEDS: hydrALAZINE 25 MG TAB PO SCH ×3 (07:56→20:45)
[2019-10-16] MEDS: Senokot S 8.6-50 MG TAB PO SCH ×2 (07:57→20:46)
[2019-10-16] MEDS: Sodium Bicarbonate Tab 325 MG TAB PO SCH (07:58)
[2019-10-16] MEDS: Artificial Tears 18 DROP/0.9 ML EA EYE SCH ×2 (08:00→20:11)
[2019-10-16] MEDS: Tetrahydrozoline 0.05% OPTH 15 ML BOT L EYE SCH ×2 (08:00→20:05)
[2019-10-16] MEDS: DorzolamidE/Timolol 2%/0.5% Ophth Soln 10 ml Bottle L EYE SCH ×2 (08:01→20:45)
[2019-10-16] MEDS ORDERED: Furosemide 20 MG/2 ML VIAL IVP SCH (08:30)
--- NOTE | 2019-10-16 08:39 | PRG ---
DATE OF SERVICE: 10/16/2019 SUBJECTIVE: The patient is still having difficulty with her breathing. She was placed on a higher amount of oxygen today. Her x-ray actually looks a little bit better than 3 days ago, but continues to have some pulmonary edema at the bases. OBJECTIVE: VITAL SIGNS: Her temperature is 97.2, pulse 77, blood pressure 161/45, O2 saturations 93%. HEENT: Unremarkable. NECK: No adenopathy or JVD. LUNGS: Coarse breath sounds at the bases. CARDIAC: S1, S2. Regular. ABDOMEN: Soft. EXTREMITIES: No edema. LABORATORY DATA: White blood cell count 19.6, hematocrit 21.9, and platelet count 216. No chemistry today. ASSESSMENT: 1. Urosepsis. 2. Pulmonary edema versus pneumonitis. PLAN: Pulmonary status is still quite tenuous. I suspect she will have a difficult time surviving current hospitalization. I will go ahead and give her a dose of Lasix. We will continue pulmonary toilet measures. She has finished antibiotic therapy. Job ID: [id number]
[2019-10-16 08:49] LABS: Anion Gap 11 mmol/L (10-20); BUN (Urea Nitrogen) 55 mg/dL (9.8-20.1); Calc. Creatinine Clearance 31 mL/min (70-130); Calcium 9.1 mg/dL (7.8-10.44); Carbon Dioxide 35 mmol/L (23-31); Chloride 108 mmol/L (98-107); Estimated GFR-MDRD 26; Glucose 161 mg/dL (83-110); Sodium 151 mmol/L (136-145)
--- NOTE | 2019-10-16 14:05 | PDOC.HOSPP ---
- Subjective Encounter Date: 10/16/19 Encounter Time: 09:10 Subjective: pt still quite labile, this am, looked quite somnolent as well. vitals stable. Na quite high; talk to RN. - Objective Vital Signs & Weight: Vital Signs (12 hours) Temp Pulse BP Pulse Ox 10/16/19 11:09 97.0 F L 10/16/19 08:00 88 L 10/16/19 07:56 86 161/45 H 10/16/19 07:54 86 161/45 H 10/16/19 07:17 97.2 F L 10/16/19 03:39 97.8 F Weight Admit Weight 167 lb 8 oz Weight 175 lb 7 oz Most Recent Monitor Data Heart Rate from ECG 82 NIBP 186/43 NIBP BP-Mean 90 Respiration from ECG 28 SpO2 88 I&O: 10/15/19 10/16/19 10/17/19 06:59 06:59 06:59 Intake Total 307 410 Output Total 900 950 Balance -393 540 Result Diagrams: 10/16/19 03:25 10/16/19 08:23 Additional Labs: Accuchecks 10/16/19 10/16/19 10/16/19 12:25 08:38 03:27 POC Glucose 221 H 175 H 217 H 10/15/19 10/15/19 10/15/19 23:48 19:59 16:22 POC Glucose 181 H 235 H 336 H Hospitalist ROS - Medication Medications: Active Medications Generic Name Dose Route Start Last Admin Trade Name Freq PRN Reason Stop Dose Admin Amlodipine Besylate 10 mg 10/16/19 09:00 10/16/19 07:54 Norvasc PO 10 mg DAILY CLARISA Administration Lipase/Protease/Amylase 1 cap 10/02/19 23:57 10/03/19 00:08 Mack Gannon [id number] FS 1 cap .PER PROTOCOL PRN Administration TUBE OCCLUSION PROTOCOL Artificial Tears 1 drop 10/04/19 21:00 10/16/19 08:00 Tears Naturale EA EYE 1 drop BID CLARISA Administration Aspirin 81 mg 09/30/19 09:00 10/16/19 07:55 Aspirin Chewable PO 81 mg DAILY CLARISA Administration Dextrose/Water 25 gm 09/30/19 14:58 10/08/19 12:16 Dextrose 50% SLOW IVP 25 gm PRN PRN Administration Hypoglycemia Dorzolamide/Timolol 1 drop 10/05/19 21:00 10/16/19 08:01 Cosopt 2-0.5% Ophth Soln L EYE 1 drop BID CLARISA Administration Heparin Sodium (Porcine) 5,000 units 10/07/19 21:00 10/16/19 07:55 Heparin SC 5,000 units BID CLARISA Administration Hydralazine HCl 10 mg 10/02/19 23:00 10/15/19 05:31 Apresoline SLOW IVP 10 mg Q4H PRN Administration SBP Greater Than 170 Hydralazine HCl 75 mg 10/15/19 15:00 10/16/19 07:56 Apresoline PO 75 mg TID CLARISA Administration Dextrose/Sodium Chloride 1,000 mls @ 20 mls/hr 10/08/19 14:00 10/15/19 16:59 D5 0.9% Ns IV 1,000 mls .Q24H CLARISA Administration Insulin Human Lispro 0 units 09/29/19 22:09 10/16/19 03:29 Humalog SC 2 unit .BEDTIME SLIDING SC PRN Administration Bedtime Correctional Scale Insulin Human Lispro 0 units 09/30/19 14:58 10/16/19 10:58 Humalog SC 2 units .MODERATE SLIDING SC PRN Administration Moderate Correctional Scale Latanoprost 1 drop 10/05/19 21:00 10/15/19 21:08 Xalatan 0.005% Ophth Soln L EYE 1 drop HS CLARISA Administration Metoclopramide HCl 10 mg 10/04/19 15:30 10/16/19 07:54 Reglan IVP 10 mg Q8H CLARISA Administration Ondansetron HCl 4 mg 09/29/19 22:09 10/15/19 23:12 Zofran IVP 4 mg Q6H PRN Administration Nausea/Vomiting Pravastatin Sodium 20 mg 09/30/19 21:00 10/15/19 21:12 Pravachol PO 20 mg QPM CLARISA Administration Scopolamine 3 mg 10/12/19 14:00 10/15/19 17:00 Transderm Scop TD 3 mg Q3D CLARISA Administration Senna/Docusate Sodium 2 tab 09/30/19 09:00 10/16/19 07:57 Senokot S PO 2 tab BID CLARISA Administration Sodium Bicarbonate 650 mg 10/02/19 23:57 10/03/19 00:08 Bicarbonate, Sodium PER TUBE 650 mg .PER PROTOCOL PRN Administration ENTERAL TUBE OCCLUSION Sodium Bicarbonate 650 mg 10/04/19 21:00 10/16/19 07:58 Bicarbonate, Sodium PO 650 mg BID CLARISA Administration Sodium Chloride 10 ml 09/30/19 09:00 10/16/19 07:58 Flush - Normal Saline IVF 10 ml Q12HR CLARISA Administration Sodium Chloride 0 ml 10/01/19 01:10 10/01/19 01:32 [place] Nasal [place] 0.65% EA NARE 2 spray TID PRN Administration Nasal Congestion Tetrahydrozoline HCl 1 drop 10/04/19 21:00 10/16/19 08:00 Visine Ac 0.05% Opth L EYE 1 drop BID CLARISA Administration - Exam General Appearance: ill appearing Eye: PERRL ENT: normocephalic atraumatic Neck: supple Heart: RRR Respiratory: CTAB, normal chest expansion Gastrointestinal: soft, normal bowel sounds Hosp A/P - Plan suspected sepsis - hypovolumic iwthout shock Sepsis likely also d/t UTI/ bacteremia Acute resp failure. --on high flow O2 now; s/p extubation Dehydration Hypovolumic hyponateremia Hypoglycemia with hx of DM2 Abn troponin d/t sepsis, type II. --> plateaued. ESBL E.coli bcateremia -u cx - neg. -flu neg -repeating the blood shanta / -wbcs trending down. blood shanta no growth x 5 days -on vanc + cefepime-----------> merum >merum & vanc d/'cd on , per pulmonary. -completed almost 2 weeks of abx. #Ileus - small bowel X ray ordered and showed no ileus however patient aspirated feeds 10/06 - NG tube was removed after extubation - will place speech consult to see if patient can swallow #Acute diastolic heart failure #Uncontrolled hypertension - BP > 190 systolic - edema improving. Chest X ray 10/12 still showing bilateral effusions - on lasix 40 mg IV daily -hydralazine being uptitrated. 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 CM working on hospice placement. DNR
[2019-10-16] MEDS: Dextrose 5 % And 0.9 % NaCl 1,000 ML IV SCH (14:59)
[2019-10-16 15:00] VITALS: BP 138/59
--- NOTE | 2019-10-16 15:51 | PDOC.PALPN ---
Palliative Progress Note - Subjective confusion, resting with mildly labored respirations. Rn reports episodes of emesis - Objective Vital Signs: Vital Signs - Most Recent Temp Pulse Resp BP Pulse Ox 96.5 F L 86 22 H 138/59 L 100 10/16/19 15:03 10/16/19 15:00 10/11/19 12:46 10/16/19 15:00 10/16/19 12:00 - Physical Exam Constitutional: encephalitic, ill appearing HEENT: moist MMs, sclera anicteric Respiratory: diminished lung sound Cardiovascular: RRR Genitourinary: kuhn catheter Musculoskeletal: diffuse muscle atrophy Skin: cap refill <2 seconds, fragile Deviation from normal: encephalopathic - Assessment (1) Palliative care encounter Code(s): Z51.5 - ENCOUNTER FOR PALLIATIVE CARE Current Visit: Yes Status: Acute (2) Respiratory failure Code(s): J96.90 - RESPIRATORY FAILURE, UNSP, UNSP W HYPOXIA OR HYPERCAPNIA Current Visit: Yes Status: Acute (3) Physical deconditioning Code(s): R53.81 - OTHER MALAISE Current Visit: Yes Status: Acute (4) LISSET (acute kidney injury) Code(s): N17.9 - ACUTE KIDNEY FAILURE, UNSPECIFIED Current Visit: No Status : Acute (5) Renal dysfunction Current Visit: No Status: Acute (6) Sepsis Code(s): A41.9 - SEPSIS, UNSPECIFIED ORGANISM Current Visit: No Status: Acute Qualifiers: Sepsis type: Escherichia coli Sepsis acute organ dysfunction status: without acute organ dysfunction Qualified Code(s): A41.51 - Sepsis due to Escherichia coli [E. coli] (7) DM II (diabetes mellitus, type II), controlled Code(s): E11.9 - TYPE 2 DIABETES MELLITUS WITHOUT COMPLICATIONS Current Visit : No Status: Chronic Qualifiers: Diabetes mellitus assistant terminal manager insulin use: with assistant terminal manager use Diabetes mellitus complication status: with kidney complications Diabetes mellitus complication detail: with chronic kidney disease Chronic kidney disease stage : stage 3 (moderate) Qualified Code(s): E11.22 - Type 2 diabetes mellitus with diabetic chronic kidney disease; N18.3 - Chronic kidney disease, stage 3 ( moderate); Z79.4 - longterm (current) use of insulin - Plan Plan: Patient will transition home with hospice/ [facility] tomorrow. May consider placement of ng to decompress gastric contents and reduce aspiration related to emesis for palliative measures. Continue with [facility] Please also refer to Leandro Lott RN notes for Palliative Care. [35] minutes spent on this encounter with >50% of the time in counseling and coordination of care. - ROS Non Response: due to mental status
[2019-10-16] MEDS ORDERED: Dextrose 5% in Water 500 ML IV SCH (17:30)
[2019-10-16] MEDS: Latanoprost 0.005% Ophth Soln 2.5 ml Bottle L EYE SCH (19:59)
[2019-10-16] MEDS: Pravastatin Sodium 20 MG TAB PO SCH (20:45)
--- NOTE | 2019-10-16 21:15 | PRG ---
DATE OF SERVICE: 10/16/2019 SUBJECTIVE: The patient noted with the following vital signs. OBJECTIVE: VITAL SIGNS: , pulse 81, respiratory rate of 21, and O2 saturation is 96%. HEENT: Unremarkable. CARDIOVASCULAR SYSTEM: First and second heart sounds were heard. RESPIRATORY SYSTEM: Clear to auscultation. DIGESTIVE SYSTEM: Revealed a benign abdomen with positive bowel sounds. EXTREMITIES: No peripheral edema. SKIN: No new gross rash. LYMPHATICS: No peripheral lymphadenopathy. IMPRESSION: 1. Acute on chronic kidney disease, which improved. 2. Cardiopulmonary failure, status post mechanical ventilation. PLAN: 1. Continue current renal supportive measures. 2. Further management to be dependent on the clinical course. Job ID: [id number]
[2019-10-17] MEDS: HumaLOG 300 UNITS/3 ML VIAL SC PRN (00:17)
[2019-10-17 03:50] LABS: Band 5 % (5-11); Hemoglobin 6.8 g/dL (12.0-16.0); Lymphocytes 5 % (21-51); MDiff Complete? YES; Mean Corpuscular HGB CONC 31.1 g/dL (32.0-36.0); Mean Corpuscular Hemoglobin 28.9 pg (27.0-31.0); Mean Platelet Volume 8.2 fL (7.4-10.4); Monocytes 4 % (0-10); Neutrophil 86 % (42-75); Platelet Count 232 thou/uL (130-400); Platelet Morphology Comment Appears Adequate; RBC Distribution Width 13.9 % (11.5-14.5); Red Blood Cell (RBC) Count 2.34 mill/uL (4.20-5.40); White Blood Cell (WBC) Count 21.2 thou/uL (4.8-10.8)
[2019-10-17 03:53] LABS: Anion Gap 15 mmol/L (10-20); BUN (Urea Nitrogen) 67 mg/dL (9.8-20.1); Calc. Creatinine Clearance 25 mL/min (70-130); Calcium 9.1 mg/dL (7.8-10.44); Carbon Dioxide 34 mmol/L (23-31); Chloride 108 mmol/L (98-107); Estimated GFR-MDRD 21; Glucose 172 mg/dL (83-110); Potassium 3.7 mmol/L (3.5-5.1); Sodium 153 mmol/L (136-145)
[2019-10-17] MEDS: Amlodipine 5 MG TAB PO SCH (07:12)
[2019-10-17] MEDS: Aspirin Chewable 81 MG TAB PO SCH (07:12)
[2019-10-17] MEDS: Senokot S 8.6-50 MG TAB PO SCH (07:13)
[2019-10-17] MEDS: hydrALAZINE 25 MG TAB PO SCH (07:13)
--- NOTE | 2019-10-17 07:53 | PRG ---
DATE OF SERVICE: 10/17/2019 SUBJECTIVE: The patient is doing poorly, especially compared to yesterday. She is either coughing or throwing up dark brown material. I cannot get her to interact with me today like she was yesterday. OBJECTIVE: VITAL SIGNS: Temperature 97.4, pulse 88, blood pressure 143/63, O2 saturation 99% on non-rebreather. Intake 900, output 1470. HEENT: Unremarkable. NECK: No JVD. LUNGS: Coarse rhonchi. CARDIAC: S1, S2. Regular. ABDOMEN: Soft. EXTREMITIES: Edematous throughout. LABORATORY DATA: White blood cell count 21.2, hematocrit 21.8, and platelet count 232. Sodium 153, potassium 3.7, chloride 108, CO2 of 34, BUN 67, creatinine 2.7, glucose 172. ASSESSMENT: This patient continues to gradually worsen despite rather aggressive care. She appears to have severe oropharyngeal dysphagia. Additionally, she has developed renal failure. RECOMMENDATION: Agree with Hospice care. I am not sure she is going to be able to go home for that, may need inpatient Hospice instead. I would go ahead and focus on comfort measures and would suggest stopping any extraneous medications. Job ID: [id number]
[2019-10-17] MEDS: Artificial Tears 18 DROP/0.9 ML EA EYE SCH (08:00)
[2019-10-17] MEDS: Heparin 5,000 UNITS/ML VIAL SC SCH (08:00)
[2019-10-17] MEDS: Metoclopramide HCl 10 MG/2 ML VIAL IVP SCH (08:00)
[2019-10-17] MEDS: Tetrahydrozoline 0.05% OPTH 15 ML BOT L EYE SCH (08:01)
[2019-10-17] MEDS: DorzolamidE/Timolol 2%/0.5% Ophth Soln 10 ml Bottle L EYE SCH (08:01)
--- NOTE | 2019-10-17 10:06 | PDOC.PALPN ---
Palliative Progress Note - Subjective resting, encephalopathic - Objective Vital Signs: Vital Signs - Most Recent Temp Pulse Resp BP Pulse Ox 97.4 F L 86 22 H 138/59 L 97 10/17/19 07:05 10/17/19 07:13 10/11/19 12:46 10/17/19 07:13 10/17/19 00:19 - Physical Exam Constitutional: encephalitic, ill appearing HEENT: moist MMs Respiratory: no wheezing, diminished lung sound Cardiovascular: RRR Skin: bruising, fragile - Assessment (1) Palliative care encounter Code(s): Z51.5 - ENCOUNTER FOR PALLIATIVE CARE Current Visit: Yes Status: Acute (2) Respiratory failure Code(s): J96.90 - RESPIRATORY FAILURE, UNSP, UNSP W HYPOXIA OR HYPERCAPNIA Current Visit: Yes Status: Acute (3) Physical deconditioning Code(s): R53.81 - OTHER MALAISE Current Visit: Yes Status: Acute (4) LISSET (acute kidney injury) Code(s): N17.9 - ACUTE KIDNEY FAILURE, UNSPECIFIED Current Visit: No Status : Acute (5) Renal dysfunction Current Visit: No Status: Acute (6) Sepsis Code(s): A41.9 - SEPSIS, UNSPECIFIED ORGANISM Current Visit: No Status: Acute Qualifiers: Sepsis type: Escherichia coli Sepsis acute organ dysfunction status: without acute organ dysfunction Qualified Code(s): A41.51 - Sepsis due to Escherichia coli [E. coli] (7) DM II (diabetes mellitus, type II), controlled Code(s): E11.9 - TYPE 2 DIABETES MELLITUS WITHOUT COMPLICATIONS Current Visit : No Status: Chronic Qualifiers: Diabetes mellitus long term acute care registered nurse insulin use: with long term acute care registered nurse use Diabetes mellitus complication status: with kidney complications Diabetes mellitus complication detail: with chronic kidney disease Chronic kidney disease stage : stage 3 (moderate) Qualified Code(s): E11.22 - Type 2 diabetes mellitus with diabetic chronic kidney disease; N18.3 - Chronic kidney disease, stage 3 ( moderate); 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 [facility]. DC'd all medications other than comfort medications. Family understanding of transition of care. Communicated with Leandro Lott RNresident care technician and Dr Pollock [[id number]] minutes spent on this encounter with >50% of the time in counseling and coordination of care. - ROS Non Response: due to mental status
[2019-10-17 11:17] VITALS: TEMP 97
--- NOTE | 2019-10-17 12:55 | DIS ---
DATE OF ADMISSION: 09/29/2019 DATE OF DISCHARGE: 10/17/2019 DISCHARGE DIAGNOSES: 1. Hypovolemia without shock, sepsis due to urinary tract infection as well as bacteremia. 2. Acute respiratory failure, hypoxia. 3. Dehydration. 4. Hypovolemic hyponatremia. 5. Hypoglycemia with a history of type 2 diabetes mellitus. 6. Abnormal troponin due to sepsis type 2, metabolic mismatch. 7. Extended-spectrum beta-lactamases Escherichia coli bacteremia. 8. Acute kidney injury. 9. Acute diastolic heart failure. 10. Uncontrolled hypertension initially. 11. Bradycardia. 12. Ileus. DISCHARGE MEDICATIONS: 1. Several eyedrops. 2. Scopolamine 1.5 mg patch every three days. 3. Omeprazole 40 mg daily. 4. Levemir 35 units insulin subcu daily. PHYSICAL EXAMINATION: VITAL SIGNS: On the day of discharge, she is afebrile. Temp 97, pulse is 89, blood pressure 139/48, and she is saturating 95%. GENERAL: She looks quite fragile and fatigued. I talked to the Palliative and plan to discharge today with home hospice. CARDIOVASCULAR: Regular rate and rhythm without murmurs, rubs, or gallops. LUNGS: Clear to auscultation bilaterally without wheezing, rales, or rhonchi. ABDOMEN: Soft, nontender. 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 3. Infectious Disease. HOSPITAL COURSE: Please review H and P and daily progress notes for more details. She has a very lengthy hospital stay starting from September 28 to October 16. A 79-year-old female admitted with severe dehydration, intractable nausea, vomiting of 3-day duration. She presented with sepsis and acute kidney injury, failure to thrive with moderate malnutrition. She is status post intubation. Her hospital stay complicated with ileus. After supportive measures and NG tube and other measures, she improved to a level where she is having some p.o. intake. The patient also had uncontrolled hypertension that was corrected with hydralazine. She had bilateral effusions/pulmonary congestion that was treated with diuresis. At some point, she required vasopressor. Repeat blood culture of did not grow any organisms for 5 days. The patient also had sodium abnormality with sodium of 153 due to poor intake and white count was initially normal, but then it is elevated. With several acute comorbidities, medical management seemed to be futile. Palliative care approached. Her code status changed to DNR. She is going home today with home hospice. All her medications were appropriately tailored towards palliative. Given a prescription for scopolamine patch as needed. DISCHARGE INSTRUCTIONS: Activity with supervision. Diet pleasure food/ regular. Follow up with primary care physician as needed. Discharge time took over 30 minutes. Job ID: [id number] [id number]
== END 2019-10-17 12:34 | disposition hospice, home (50) | DRG 870 ==
LOC: ERS 18:36 → IMCU/EMU 20:31 → CCU 10-06 13:14 → IMCU/EMU 10-12 10:23
PROVIDERS: ADMIT Internal Medicine; ATTEND Internal Medicine
PROC: 02HV33Z Insertion of Infusion Device into Superior Vena Cava, Percutaneous Approach (ICD-10-PCS; principal; 2019-10-02)
PROC: B548ZZA Ultrasonography of Superior Vena Cava, Guidance (ICD-10-PCS; 2019-10-02)
PROC: 0BH18EZ Insertion of Endotracheal Airway into Trachea, Via Natural or Artificial Opening Endoscopic (ICD-10-PCS; 2019-10-06)
PROC: 5A09457 Assistance with Respiratory Ventilation, 24-96 Consecutive Hours, Continuous Positive Airway Pressure (ICD-10-PCS; 2019-10-07)
PROC: 5A1955Z Respiratory Ventilation, Greater than 96 Consecutive Hours (ICD-10-PCS; 2019-10-07)
PROC: 3E033XZ Introduction of Vasopressor into Peripheral Vein, Percutaneous Approach (ICD-10-PCS; 2019-10-07)
DX: A41.51 Sepsis due to Escherichia coli [E. coli] (principal); R65.21 Severe sepsis with septic shock; I50.33 Acute on chronic diastolic (congestive) heart failure; J96.01 Acute respiratory failure with hypoxia; J69.0 Pneumonitis due to inhalation of food and vomit; Z16.12 Extended spectrum beta lactamase (ESBL) resistance; E87.1 Hypo-osmolality and hyponatremia; E44.0 Moderate protein-calorie malnutrition; N17.9 Acute kidney failure, unspecified; K56.7 Ileus, unspecified; E87.2 Acidosis; I13.0 Hypertensive heart and chronic kidney disease with heart failure and stage 1 through stage 4 chronic kidney disease, or unspecified chronic kidney disease; N10 Acute pyelonephritis; N18.4 Chronic kidney disease, stage 4 (severe); B37.89 Other sites of candidiasis; Z66 Do not resuscitate; Z51.5 Encounter for palliative care; F41.9 Anxiety disorder, unspecified; E03.9 Hypothyroidism, unspecified; E78.5 Hyperlipidemia, unspecified; E86.0 Dehydration; K21.9 Gastro-esophageal reflux disease without esophagitis; E86.1 Hypovolemia; E11.649 Type 2 diabetes mellitus with hypoglycemia without coma; E87.6 Hypokalemia; E83.51 Hypocalcemia; E83.42 Hypomagnesemia; Z79.899 Other long term (current) drug therapy; T50.2X5A Adverse effect of carbonic-anhydrase inhibitors, benzothiadiazides and other diuretics, initial encounter; E11.22 Type 2 diabetes mellitus with diabetic chronic kidney disease; E78.00 Pure hypercholesterolemia, unspecified; D63.1 Anemia in chronic kidney disease; R13.12 Dysphagia, oropharyngeal phase; E87.5 Hyperkalemia; Z90.49 Acquired absence of other specified parts of digestive tract; Z79.4 Long term (current) use of insulin; Z88.0 Allergy status to penicillin; Z68.37 Body mass index [BMI] 37.0-37.9, adult
CPT/HCPCS: 36415; 36416; 36569; 51701; 71045; 74018; 74177; 74230; 74250; 80048; 80053; 80076; 80202; 81001; 81003; 81015; 82550; 82553; 82805; 83605; 83690; 83735; 83880; 83935; 84100; 84300; 84443; 84484; 85025; 85027; 87040; 87070; 87077; 87086; 87149; 87186; 87205; 87804; 93005; 93010; 93306; 94002; 94003; 94640; 94660; 96361; 96365; C1751; J0171; J0360; J0692; J1644; J1650; J1815; J1940; J2060; J2185; J2270; J2405; J2704; J2765; J3370; J3475; J3480; J3490; J7050; J7070; J7620; Q9963; Q9967